=== PATIENT | male | born 1940 | race Caucasian/White ===

== ENCOUNTER 2019-05-20 12:25 | Inpatient (IN) | payer MEDICARE, MEDICAID ==
[2019-05-20] MEDS ORDERED: hydrALAZINE 20 MG/ML VIAL ONE (13:00)
[2019-05-20] MEDS ORDERED: Furosemide 40 MG/4 ML VIAL ONE (13:00)
[2019-05-20 13:13] LABS: #Basophils 0.1 thou/uL (0.0-0.2); #Eosinphils 0.3 thou/uL (0.0-0.7); #Lymphocytes 1.4 thou/uL (1.20-3.40); #Monocytes 0.6 thou/uL (0.11-0.59); #Neutrophils 3.3 thou/uL (1.40-6.50); %Basophils 1.2 % (0.0-1.0); %Eosinophils 5.8 % (0.0-10.0); %Lymphocytes 25.3 % (21.0-51.0); %Monocytes 10.2 % (0.0-10.0); %Neutrophils 57.5 % (42.0-75.0); Hemoglobin 14.2 g/dL (14.0-18.0); Mean Corpuscular HGB CONC 33.9 g/dL (32.0-36.0); Mean Corpuscular Hemoglobin 30.6 pg (27.0-31.0); Mean Corpuscular Volume 90.3 fL (78.0-98.0); Mean Platelet Volume 8.1 fL (7.4-10.4); Platelet Count 153 thou/uL (130-400); RBC Distribution Width 14.7 % (11.5-14.5); Red Blood Cell (RBC) Count 4.66 mill/uL (4.70-6.10); White Blood Cell (WBC) Count 5.7 thou/uL (4.8-10.8)
--- NOTE | 2019-05-20 13:18 | RAD ---
EXAM: Portable chest PROVIDED CLINICAL HISTORY: Chest pain COMPARISON: None FINDINGS: Cardiac and mediastinal silhouette is within normal limits. No focal consolidation, pleural fluid or pneumothorax evident. Median sternotomy changes, atherosclerosis and chronic obstructive changes are redemonstrated. IMPRESSION: No evidence for an acute cardiopulmonary process.
[2019-05-20] MEDS ORDERED: cefTRIAXone\\ROCEPHIN 2 GM VIAL ONE (13:33)
[2019-05-20] MEDS ORDERED: Magnesium 2 GM/50 ML BAG (IN WATER) ONE (13:33)
[2019-05-20] MEDS ORDERED: methylPREDNISolone Sod Succ/PF 125 MG/2 ML VIAL ONE (13:33)
[2019-05-20 13:35] LABS: ALT (SGPT) 22 U/L (8-55); AST (SGOT) 43 U/L (5-34); Albumin 4.4 g/dL (3.4-4.8); Alkaline Phosphatase 97 U/L (40-110); Anion Gap 17 mmol/L (10-20); BUN (Urea Nitrogen) 16 mg/dL (8.4-25.7); Bilirubin, Total 0.7 mg/dL (0.2-1.2); Calc. Creatinine Clearance 0 mL/min (70-130); Calcium 9.1 mg/dL (7.8-10.44); Carbon Dioxide 30 mmol/L (23-31); Chloride 84 mmol/L (98-107); Estimated GFR-MDRD 70; Globulin 3.5 g/dL (2.4-3.5); Glucose 113 mg/dL (83-110); Lipase 15 U/L (8-78); Potassium 4.5 mmol/L (3.5-5.1); Protein, Total 7.9 g/dL (5.8-8.1); Sodium 126 mmol/L (136-145)
[2019-05-20] MEDS ORDERED: Ondansetron PF 4 MG/2 ML Vial IVP PRN (15:45)
[2019-05-20] MEDS ORDERED: Morphine 2 MG/ML SYRINGE SLOW IVP PRN ×2 (15:45→17:55)
[2019-05-20] MEDS ORDERED: Bisacodyl 10 MG SUPP PR PRN (15:45)
--- NOTE | 2019-05-20 16:22 | HP ---
REASON FOR ADMISSION: CHF exacerbation, stasis dermatitis of lower extremity, hyponatremia secondary to SIADH, and COPD exacerbation. HISTORY OF PRESENTING ILLNESS: The patient gives history of progressive swelling of both lower extremities and shortness of breath. He has had off and on blistering of his lower extremities for almost a year now with worsening swelling and painful legs now. He developed severe shortness of breath and was not able to get up and even use the restroom this morning and called EMS. He has felt hot and cold at home. No complaints of any expectoration as such. Has no complaints of chest pain or palpitation. PAST MEDICAL AND SURGICAL HISTORY: History of CABG for four-vessel disease done in April [address] Kim. He had SAGASTUME to LAD, saphenous vein graft to diagonal, ramus and obtuse marginal. Hypertension, dyslipidemia, restless legs syndrome, hernia repair on both side, circumcision, and chronic back pain. CURRENT MEDICATIONS: The patient takes: 1. K-Dur 10 mEq p.o. daily. 2. Lasix 20 mg daily. 3. Aspirin 81 mg daily. 4. Coreg 3.125 mg twice daily. 5. Lisinopril 10 mg daily. 6. Pramipexole at bedtime. ALLERGIES: ALLERGIC TO ULTRAM. PERSONAL HISTORY: Does not abuse alcohol or drugs. Quit smoking more than 20 years ago, but has smoked half pack a day for 20 years. He lives alone. FAMILY HISTORY: Mother at the age of 88. She had hardening of arteries. Father at the age of 78, had history of esophageal cancer and prostate cancer. CODE STATUS: The patient is full code. Power of defense attorney is his sister. The patient is not and has no children. REVIEW OF SYSTEMS: CONSTITUTIONAL: Negative for weight loss or gain, ability to conduct usual activities. SKIN: Negative for rash, itching. EYES: Negative for double vision, pain. ENT/MOUTH: Negative for nose bleeding, neck stiffness, pain, tenderness. CARDIOVASCULAR: Negative for palpitations, dyspnea on exertion, orthopnea. RESPIRATORY: Negative for shortness of breath, wheezing, cough, hemoptysis, fever or night sweats. GASTROINTESTINAL: Negative for poor appetite, abdominal pain, heartburn, nausea , vomiting, constipation, or diarrhea. GENITOURINARY: Negative for urgency, frequency, dysuria, nocturia. MUSCULOSKELETAL: Negative for pain, swelling. NEUROLOGIC/PSYCHIATRIC: Negative for anxiety, depression. ALLERGY/IMMUNOLOGIC: Negative for skin rash, bleeding tendency. PHYSICAL EXAMINATION: GENERAL: The patient is a 78-year-old male, who is currently not in any acute distress. VITAL SIGNS: Blood pressure 196/100, pulse 78 per minute, respiratory rate 24 per minute, temperature 98.4 degrees Fahrenheit, and saturating 100% on 2 L nasal cannula. NECK: Supple. There is elevated JVD. HEENT: Eyes, extraocular muscles intact. Pupils reacting to light. Oral cavity, mucous membranes are dry. No exudates or congestion. CARDIOVASCULAR SYSTEM: S1 and S2 heard. Regular rhythm. RESPIRATORY SYSTEM: Air entry 1+ bilateral. There is rales plus in the infrascapular area. Rhonchi plus. ABDOMEN: Soft. Bowel sounds heard. Abdomen is slightly distended. No rigidity or guarding. EXTREMITIES: There is severe peripheral edema and acrocyanosis in the toes due to edema. He has scarring from old blistering on the legs due to extensive edema. No calf tenderness. VASCULAR SYSTEM: Peripheral pulses 1+ bilateral. No ischemic ulcers or gangrene. CENTRAL NERVOUS SYSTEM: No gross focal deficits noted. The patient is alert, awake, and oriented well. PSYCHIATRIC: The patient's mood is euthymic. No hallucinations or delusions. LABORATORY DATA: EKG done shows normal sinus rhythm at 87 beats per minute. There is nonspecific ST-T wave changes seen. White count of 5.7, H and H 14 and 42, platelet count 153, and MCV is 90 with 57% neutrophils. Sodium 126, serum chloride 84, BUN 16, creatinine 1.0, serum glucose 113, AST 43, ALT 22, and alkaline phosphatase 97. First set of troponin negative. BNP is 28. Albumin is 4.4 and lipase is 15. Chest x-ray done shows no acute cardiopulmonary process. CLINICAL IMPRESSION AND PLAN: The patient will be admitted to telemetry for acute congestive heart failure exacerbation likely diastolic dysfunction. His prior echo showed normal EF in 2014, but his cardiac catheterization showed low ejection fraction. The patient also has a prior history of smoking and it is unclear if the patient has underlying RV failure. We will obtain a repeat echo with 2D Doppler for LV function. We will consult Dr. Mcnamara of Cardiology. He will be gently diuresed with Lasix 40 mg IV at 6 a.m. and 2 p.m. His renal function is stable at present. The patient has massive edema and will likely require prolonged and sustained diuresis to get rid of the extra fluid he has. He will be wearing a SUSANA hose to help with diuresis. We will continue him on a small dose of Coreg, lisinopril, and aspirin. Morphine p.r.n. for pain and we will also consult Dr. Morales for Pulmonology. Job ID: [id number] [facility]
[2019-05-20 17:36] VITALS: BMI 30.7
[2019-05-20 19:31] LABS: Troponin I 0.027 ng/mL (< 0.028)
[2019-05-20] MEDS: Carvedilol 3.125 MG TAB PO SCH (21:16)
[2019-05-20] MEDS: Famotidine 20 MG TAB PO SCH (21:16)
[2019-05-20] MEDS: Acetaminophen/Codeine 30-300mg Tablet PO PRN (21:16)
[2019-05-20] MEDS: Doxycycline 100 MG CAP PO SCH (21:16)
[2019-05-20] MEDS: Guaifenesin DM 100-10/5 ML UDCUP PO PRN (21:28)
[2019-05-20] MEDS: methylPREDNISolone Sod Succ 40 MG VIAL IVP SCH (21:30)
[2019-05-21] MEDS: Acetaminophen/Codeine 30-300mg Tablet PO PRN (05:29)
[2019-05-21] MEDS: Furosemide 40 MG/4 ML VIAL SLOW IVP SCH ×3 (05:30→15:14)
[2019-05-21 06:31] LABS: #Lymphocytes 0.8 thou/uL (1.20-3.40); #Monocytes 0.2 thou/uL (0.11-0.59); #Neutrophils 3.7 thou/uL (1.40-6.50); %Basophils 0.2 % (0.0-1.0); %Eosinophils 0.4 % (0.0-10.0); %Lymphocytes 16.8 % (21.0-51.0); %Monocytes 4.1 % (0.0-10.0); %Neutrophils 78.6 % (42.0-75.0); Hemoglobin 13.3 g/dL (14.0-18.0); Mean Corpuscular HGB CONC 34.4 g/dL (32.0-36.0); Mean Corpuscular Hemoglobin 30.6 pg (27.0-31.0); Mean Platelet Volume 7.6 fL (7.4-10.4); Platelet Count 163 thou/uL (130-400); RBC Distribution Width 14.9 % (11.5-14.5); Red Blood Cell (RBC) Count 4.33 mill/uL (4.70-6.10); White Blood Cell (WBC) Count 4.7 thou/uL (4.8-10.8)
[2019-05-21] MEDS: methylPREDNISolone Sod Succ 40 MG VIAL IVP SCH ×3 (06:48→21:54)
[2019-05-21 06:52] LABS: Anion Gap 13 mmol/L (10-20); BUN (Urea Nitrogen) 15 mg/dL (8.4-25.7); Calc. Creatinine Clearance 95 mL/min (70-130); Carbon Dioxide 30 mmol/L (23-31); Chloride 84 mmol/L (98-107); Estimated GFR-MDRD 79; Glucose 139 mg/dL (83-110); Potassium 4.3 mmol/L (3.5-5.1); Sodium 123 mmol/L (136-145)
[2019-05-21] MEDS ORDERED: FLU VACC TS2019-20(65YR UP)/PF 180 MCG/0.5 ML SYRINGE IM ONE (09:00)
[2019-05-21] MEDS ORDERED: Lisinopril 2.5 MG TAB PO SCH (09:00)
[2019-05-21] MEDS: Famotidine 20 MG TAB PO SCH ×2 (09:39→20:30)
[2019-05-21] MEDS: Enoxaparin Sodium 40 MG/0.4 ML SYRINGE SC SCH (09:40)
[2019-05-21] MEDS: Carvedilol 3.125 MG TAB PO SCH ×2 (09:40→20:31)
[2019-05-21] MEDS: Aspirin Chewable 81 MG TAB PO SCH (09:40)
[2019-05-21] MEDS: Doxycycline 100 MG CAP PO SCH ×2 (09:40→20:31)
--- NOTE | 2019-05-21 11:28 | CON ---
DATE OF CONSULTATION: 05/21/2019 PRIMARY FIRST SAMPLER: Dee Dee Bran MD REASON FOR CONSULTATION: Lower extremity edema. HISTORY OF PRESENT ILLNESS: Mr. Palacios is a pleasant 78-year-old white gentleman, who comes to the hospital for lower extremity edema and erythema. He has noticed this lower extremity edema for a long time now. He states that for the past years, he has noticed some level of edema. Recently, they become more erythematous and painful to palpation, so he was advised to come in to the hospital for further evaluation. He was evaluated and thought to have a cellulitis and he has been started on antibiotics already. He has not noted much improvement. On my evaluation, he does seem to have what I would call cellulitis of the bilateral lower extremities with multiple scabs. He has a history of coronary artery disease with left main disease back in 2014, diagnosed by Dr. Bran, and underwent coronary artery bypass grafting x4 by Dr. Kim in May of 2014. He had a SAGASTUME to the LAD, a vein graft to a diagonal, vein graft to ramus, and a vein graft to an obtuse marginal. He followed up with Dr. Bran up until 2017. The last echocardiogram on file is from 2014 in June and he had an EF of 55% to 60% and [id number] MR. PAST MEDICAL HISTORY: 1. Coronary artery disease, status post CABG x4 as above. 2. Hypertension. 3. Hyperlipidemia. 4. Restless legs syndrome. 5. Hernia repair on both sides. 6. Circumcision. 7. Chronic back pain with upper thoracic back surgery. OUTPATIENT MEDICATIONS: 1. Potassium chloride. 2. Lasix 20 mg a day. 3. Aspirin 81 a day. 4. Coreg 3.125 b.i.d. 5. Lisinopril 10 mg a day. 6. Pramipexole. ALLERGIES: ULTRAM. SOCIAL HISTORY: No alcohol or drugs. Quit smoking 20 years ago. FAMILY HISTORY: No early coronary artery disease. REVIEW OF SYSTEMS: A 12-point review of systems was done and was all negative unless stated in the history of present illness. PHYSICAL EXAMINATION: VITAL SIGNS: Temperature 97.8, pulse 86, respiratory rate 18, sat 94% on room air, and blood pressure 152/72. GENERAL: Awake, alert, and oriented x3, in no distress. HEENT: Normocephalic and atraumatic. NECK: Supple. LUNGS: Reduced breath sounds. ABDOMEN: Positive bowel sounds. EXTREMITIES: 1+ very taut edema with erythema, warm to touch and painful to palpation suggestive of cellulitis. This is on both shins. LABORATORY DATA: Laboratory work was reviewed. White count of 5, hemoglobin of 14, hematocrit of 42, and platelet count of 153. Chemistries were reviewed. Sodium 123, potassium 4.3, normal BUN and creatinine, and GFR 79. Troponin is negative x3. BNP is 28. TSH is 1.9. ASSESSMENT: 1. Bilateral lower extremity edema and likely cellulitis. 2. Coronary artery disease, status post coronary artery bypass graft x4 five years ago. No symptoms to suggest an acute coronary syndrome and negative troponins. 3. Hypertension. PLAN: 1. Echocardiogram is pending. 2. Continue antibiotics per primary team. 3. There may be some level of venous insufficiency. 4. We will await for results of echo for further recommendations. 5. We would agree with increasing his Lasix to current dose for 1 or 2 days. 6. Add a statin to his regimen for his CAD. Thank you for letting us to participate in the care of your patient. Dr. Bran, his primary motor coach bus driver, will follow in the morning. Job ID: [id number]
--- NOTE | 2019-05-21 12:00 | PDOC.HOSPP ---
- Subjective Encounter Date: 05/21/19 Encounter Time: 10:00 Subjective: breathing better, no chest pain is sitting in chair - Objective Vital Signs & Weight: Vital Signs (12 hours) Temp Pulse Resp BP BP Pulse Ox 05/21/19 09:40 86 152/72 H 05/21/19 09:00 98.6 F 92 18 122/60 92 L 05/21/19 07:33 97.8 F 86 18 152/72 H 94 L 05/21/19 06:33 87 19 97 05/21/19 04:55 94 L 05/21/19 04:05 97.8 F 83 20 132/90 94 L 05/21/19 04:00 97.8 F 83 20 132/90 94 L 05/20/19 23:55 98 F 85 20 121/74 98 05/20/19 23:54 98 F 85 20 121/74 98 05/20/19 23:47 84 20 94 L Weight Weight 220 lb I&O: 05/20/19 05/21/19 05/22/19 05:59 06:59 06:59 Output Total Balance Result Diagrams: 05/21/19 06:19 05/21/19 06:18 Hospitalist ROS - Medication Medications: Active Medications Generic Name Dose Route Start Last Admin Trade Name Freq PRN Reason Stop Dose Admin Acetaminophen/Codeine Phosphate 2 tab 05/20/19 15:45 05/21/19 05:29 Tylenol #3 PO 2 tab Q6H PRN Administration Moderate Pain (4-6) Albuterol/Ipratropium 3 ml 05/20/19 19:00 05/21/19 06:33 Duoneb NEB 3 ml [id number] JAIME Administration Aspirin 81 mg 05/21/19 09:00 05/21/19 09:40 Aspirin Chewable PO 81 mg DAILY JAIME Administration Carvedilol 3.125 mg 05/20/19 21:00 05/21/19 09:40 Coreg PO 3.125 mg BID JAIME Administration Doxycycline Hyclate 100 mg 05/20/19 21:00 05/21/19 09:40 Vibramycin PO 100 mg BID JAIME Administration Enoxaparin Sodium 40 mg 05/21/19 09:00 05/21/19 09:40 Lovenox SC 40 mg 09 JAIME Administration Famotidine 20 mg 05/20/19 21:00 05/21/19 09:39 Pepcid PO 20 mg BID JAIME Administration Furosemide 40 mg 05/21/19 06:00 05/21/19 05:38 Lasix SLOW IVP Not Given 0600,1400 JAIME Guaifenesin/Dextromethorphan 15 ml 05/20/19 15:45 05/20/19 21:28 Robitussin Dm PO 15 ml Q4H PRN Administration Cough Lisinopril 2.5 mg 05/21/19 09:00 05/21/19 09:40 Zestril PO 2.5 mg DAILY JAIME Administration Methylprednisolone Sodium Succinate 20 mg 05/20/19 22:00 05/21/19 06:48 Solu-Medrol IVP 20 mg Q8HR JAIME Administration Ondansetron HCl 4 mg 05/20/19 15:45 05/21/19 09:42 Zofran IVP 4 mg Q6H PRN Administration Nausea/Vomiting - Exam General Appearance: awake alert Eye: PERRL, anicteric sclera ENT: no oropharyngeal lesions, moist mucosa Neck: supple, no JVD Heart: RRR, no murmur Respiratory: no wheezes, no rales Gastrointestinal: soft, non-tender, non-distended, normal bowel sounds Extremities: no cyanosis, 2+ LE edema Neurological: cranial nerve grossly intact, no focal deficits Psychiatric: normal affect, A&O x 3 Hosp A/P (1) Acute exacerbation of CHF (congestive heart failure) Code(s): I50.9 - HEART FAILURE, UNSPECIFIED Status: Acute Qualifiers: Heart failure type: unspecified Qualified Code(s): I50.9 - Heart failure, unspecified (2) COPD exacerbation Code(s): J44.1 - CHRONIC OBSTRUCTIVE PULMONARY DISEASE W (ACUTE) EXACERBATION Status: Acute (3) CAD (coronary artery disease) Code(s): I25.10 - ATHSCL HEART DISEASE OF [place] CORONARY ARTERY W/O ANG PCTRS Status: Chronic Qualifiers: Coronary Disease-Associated Artery/Lesion type: bypass graft [place] vs. transplanted heart: [place] heart Associated angina: without angina Qualified Code(s): I25.810 - Atherosclerosis of coronary artery bypass graft(s) without angina pectoris (4) HTN (hypertension) Code(s): I10 - ESSENTIAL (PRIMARY) HYPERTENSION Status: Chronic Qualifiers: Hypertension type: essential hypertension Qualified Code(s): I10 - Essential (primary) hypertension (5) Dyslipidemia Code(s): E78.5 - HYPERLIPIDEMIA, UNSPECIFIED Status: Chronic (6) Chronic back pain Code(s): M54.9 - DORSALGIA, UNSPECIFIED; G89.29 - OTHER CHRONIC PAIN Status: Chronic Qualifiers: Back pain location: low back pain (7) Obesity (BMI 30.0-34.9) Code(s): E66.9 - OBESITY, UNSPECIFIED Status: Chronic - Plan counselled to take lasix as prescibed echo pending is on small doses of coreg, lisinopril, asp, lipitor, steroids, empiric doxy for copd flare up, nebs. has massive edema built up in lower extremities over a long period of time (?1yr ) poor functional status due to back issues has caregiver who comes in daily for 6hrs, he does not want any placement or rehab. PT/OT jaleel garay hose to lower extremities
--- NOTE | 2019-05-21 13:24 | CON ---
DATE OF CONSULTATION: HISTORY OF PRESENT ILLNESS: Bora Palacios is a 78-year-old morbidly obese gentleman, who has been in the hospital for several days. He weighs 98 kg, presented with shortness of breath, abdominal pain, coughing, and wheezing. He says he can barely walk 20 feet without getting markedly short of breath. He had a face mask. His O2 was 100%, pulse 79, respirations 25, and blood pressure 197/102. Denies any coughing or wheezing. In regard to his abdominal discomfort, he said he is having some pain. He is distended. But, denies any nausea, vomiting, or diarrhea. PAST MEDICAL HISTORY: COPD, coronary artery disease status post [place], high cholesterol, hyperlipidemia, and chronic back pain. PAST SURGICAL HISTORY: Previous surgeries otherwise included previous bypass and hernia surgery. He is a . Previous lumbar steroid shot. SOCIAL HISTORY: Drinks alcohol daily. Former smoker, quit smoking 10 years ago. HOME MEDICINES: 1. Aspirin. 2. Claritin. 3. Lasix 20. 4. Pramipexole 0.25 daily. 5. Potassium. 6. Tylenol. 7. Naprosyn. 8. Lisinopril 10. 9. Ibuprofen. 10. Gabapentin. 11. Coreg 3.125. REVIEW OF SYSTEMS: Otherwise, negative. PHYSICAL EXAMINATION: GENERAL: He is awake, alert, and responsive, morbidly obese. VITAL SIGNS: Temperature 98, pulse 86, blood pressure 142/72, saturations are 90% on 2 L. Blood pressure as noted and respirations 18. CHEST: Decreased breath sounds. No wheezing. CARDIAC: Normal S1 and S2. No gallops. ABDOMEN: No masses. Massive and distended. EXTREMITIES: Trace edema. NEUROLOGIC: He is awake, alert, responsive, and normal. LABORATORY DATA: Sodium is 123, low. White count 4000, H and H 13 and 38, and platelet count is normal. X-ray is clear. ASSESSMENT: 1. Chronic obstructive pulmonary disease exacerbation bronchitis. 2. Hyponatremia, unclear whether this is from his drinking or the diuretics. PLAN: He needs baseline PFT at some stage. I agree with present treatment. He is probably going to need home medication including somewhat of nebulizer, rescue inhaler, and Dulera. I will switch him over to p.o. prednisone. Continue aggressive PT. We will follow. Consultation note, 70 minutes, 50% direct patient care. Job ID: [id number]
[2019-05-21] MEDS: Mometasone/Formoterol 120 PUFF INHALER INH SCH (18:56)
[2019-05-21] MEDS ORDERED: Methyl Salicylate/Menthol 85 GM TUBE TOP PRN (19:11)
[2019-05-21] MEDS: Atorvastatin Calcium 20 MG TAB PO SCH (20:30)
[2019-05-21] MEDS: Senokot S 8.6-50 MG TAB PO PRN (20:30)
[2019-05-21] MEDS: Pramipexole Di-HCl 0.25 MG TAB PO PRN (21:52)
[2019-05-21] MEDS: Gabapentin 300 MG CAP PO PRN (21:52)
[2019-05-21] MEDS: Acetaminophen 325 MG TAB PO PRN (22:29)
[2019-05-22] MEDS: Furosemide 40 MG/4 ML VIAL SLOW IVP SCH ×2 (06:12→15:45)
[2019-05-22] MEDS: methylPREDNISolone Sod Succ 40 MG VIAL IVP SCH (06:13)
[2019-05-22] MEDS: Mometasone/Formoterol 120 PUFF INHALER INH SCH ×2 (07:56→18:47)
[2019-05-22 08:40] LABS: Anion Gap 15 mmol/L (10-20); BUN (Urea Nitrogen) 24 mg/dL (8.4-25.7); Calc. Creatinine Clearance 78 mL/min (70-130); Calcium 9.6 mg/dL (7.8-10.44); Carbon Dioxide 33 mmol/L (23-31); Chloride 85 mmol/L (98-107); Estimated GFR-MDRD 63; Glucose 110 mg/dL (83-110); Potassium 4.6 mmol/L (3.5-5.1); Sodium 128 mmol/L (136-145)
[2019-05-22] MEDS: Aspirin Chewable 81 MG TAB PO SCH (09:12)
[2019-05-22] MEDS: Famotidine 20 MG TAB PO SCH ×2 (09:13→20:37)
[2019-05-22] MEDS: Carvedilol 3.125 MG TAB PO SCH ×2 (09:13→20:36)
[2019-05-22] MEDS: Amoxicillin/Potassium Clav 875 MG TAB PO SCH ×2 (09:13→20:36)
[2019-05-22] MEDS: Doxycycline 100 MG CAP PO SCH ×2 (09:13→20:38)
[2019-05-22] MEDS: Enoxaparin Sodium 40 MG/0.4 ML SYRINGE SC SCH (09:13)
[2019-05-22] MEDS: predniSONE 20 MG TAB PO SCH (09:14)
[2019-05-22] MEDS: Senokot S 8.6-50 MG TAB PO PRN (09:15)
--- NOTE | 2019-05-22 09:53 | PRG ---
DATE OF SERVICE: 05/22/2019 SUBJECTIVE: This morning, he is better. He is less short of breath. Sodium is improved to 128. OBJECTIVE: VITAL SIGNS: Temperature 97, pulse 79, respirations 18, saturations 95% on 2 L, blood pressure 134/69. CHEST: Decreased breath sounds without any wheezing. CARDIAC: Normal S1 and S2. No gallops. ABDOMEN: No masses. IMPRESSION: Chronic obstructive pulmonary disease exacerbation, bronchitis, congestive heart failure, hyponatremia. PLAN: Continue PT, supportive care. Disposition as per primary care physician. Job ID: [id number]
--- NOTE | 2019-05-22 12:06 | PDOC.CPN ---
- Subjective Date: 05/22/19 Time: 08:00 Interval history: The pt seen and examined. No overnight events. No cardiac complaints. - Objective Allergies/Adverse Reactions: Allergies Allergy/AdvReac Type Severity Reaction Status Date / Time tramadol Allergy Verified 05/20/19 17:37 Visit Medications: Current Medications Acetaminophen (Tylenol) 650 mg PO Q4H PRN PRN Reason: Headache/Fever/Mild Pain (1-3) Last Admin: 05/21/19 22:29 Dose: 650 mg Acetaminophen/Codeine Phosphate (Tylenol #3) 2 tab PO Q6H PRN PRN Reason: Moderate Pain (4-6) Last Admin: 05/21/19 05:29 Dose: 2 tab Albuterol/Ipratropium (Duoneb) 3 ml NEB [id number] [facility] Last Admin: 05/22/19 07:54 Dose: 3 ml Amoxicillin/Clavulanate Potassium (Augmentin) 875 mg PO Q12HR [facility] Last Admin: 05/22/19 09:13 Dose: 875 mg Aspirin (Aspirin Chewable) 81 mg PO DAILY [facility] Last Admin: 05/22/19 09:12 Dose: 81 mg Atorvastatin Calcium (Lipitor) 20 mg PO HS [facility] Last Admin: 05/21/19 20:30 Dose: 20 mg Bisacodyl (Dulcolax) 10 mg MN DAILYPRN PRN PRN Reason: Constipation Carvedilol (Coreg) 3.125 mg PO BID [facility] Last Admin: 05/22/19 09:13 Dose: 3.125 mg Doxycycline Hyclate (Vibramycin) 100 mg PO BID [facility] Last Admin: 05/22/19 09:13 Dose: 100 mg Enoxaparin Sodium (Lovenox) 40 mg SC 0900 [facility] Last Admin: 05/22/19 09:13 Dose: 40 mg Famotidine (Pepcid) 20 mg PO BID [facility] Last Admin: 05/22/19 09:13 Dose: 20 mg Furosemide (Lasix) 40 mg SLOW IVP 0600,1400 [facility] Last Admin: 05/22/19 06:12 Dose: 40 mg Gabapentin (Neurontin) 600 mg PO TIDPRN PRN PRN Reason: Pain Last Admin: 05/21/19 21:52 Dose: 600 mg Guaifenesin/Dextromethorphan (Robitussin Dm) 15 ml PO Q4H PRN PRN Reason: Cough Last Admin: 05/20/19 21:28 Dose: 15 ml Menthol/Methyl Salicylate (Muscle Rub Cream (Bengay)) 0 gm TOP TIDPRN PRN PRN Reason: JOINT/Muscle Pain Last Admin: 05/21/19 20:29 Dose: 1 gm Mometasone Furoate/Formoterol Fumar (Dulera 200 Mcg/5 Mcg Inhaler) 2 puff INH BID-RT JAIME Last Admin: 05/22/19 07:56 Dose: 2 puff Morphine Sulfate (Morphine) 2 mg SLOW IVP Q4H PRN PRN Reason: Severe Pain (7-10) Ondansetron HCl (Zofran) 4 mg IVP Q6H PRN PRN Reason: Nausea/Vomiting Last Admin: 05/21/19 09:42 Dose: 4 mg Pramipexole Dihydrochloride (Mirapex) 0.5 mg PO BID PRN PRN Reason: RLS Last Admin: 05/21/19 21:52 Dose: 0.5 mg Prednisone (Prednisone) 40 mg PO QAM-WM [facility] Last Admin: 05/22/19 09:14 Dose: 40 mg Senna/Docusate Sodium (Senokot S) 2 tab PO BID PRN PRN Reason: Constipation Last Admin: 05/22/19 09:15 Dose: 2 tab Sodium Chloride (Flush - Normal Saline) 10 ml IVF Q12HR JAIME Sodium Chloride (Flush - Normal Saline) 10 ml IVF PRN PRN PRN Reason: Saline Flush Vital Signs & Weight: Vital Signs Temp Pulse Resp BP Pulse Ox 05/22/19 11:42 98 F 86 16 101/66 96 05/22/19 07:54 92 16 94 L 05/22/19 07:00 98.3 F 78 16 134/69 95 05/22/19 03:55 97.3 F L 79 18 126/78 90 L 05/22/19 03:54 97.3 F L 79 18 126/78 90 L Weight 220 lb - Physical Exam General: alert & oriented x3 HEENT: mucus membranes moist Neck: supple neck Cardiac: regular rate and rhythm, S1/S2 Lungs: decreased breath sounds Neuro: cranial nerve 2-12 intact Extremities: other: (4+ pitting BLE edema) - Labs Result Diagrams: 05/21/19 06:19 03/09/20 08:08 Troponin/CKMB Troponin I 0.027 ng/mL (< 0.028) 05/20/19 19:01 - Telemetry Sinus rhythms and dysrhythmias: sinus rhythm - Assessment/Plan Assessment/Plan: 1. Acute on chronic Diastolic HF - his reps stable with Lasix; on Coreg and Lisinopril; will start Fluid restriction 1200ml/day for CHF and hyponatremia treatment; TEDs hose to lower extremities and strongly recommend to raise his BLE while resting 2. CAD with hx of CABG x 4 in 05/2014 - stable with BBlocker, KISHA, ASA, and Statin 3. HTN - stable 4. HLD - on Statin 5. COPD exacerbation with Bronchitis - on ABX 6. ETOH abuse - he drinks at least 1 glass of whisky at night; 7. Hyponatremia - will start Fluid restriction 1200ml/day for CHF and hyponatremia treatment MAR reviewed * Echo on 05/21/2019 with EF 60-65%, grade I dd, mild LVH, mild LAE, mild MR and TR Pt. seen and eval. by me. I agree with the A/P y the [employer] ATTEND[employer]. He will need significant diuresis. Chest : decreased BS throughout. RRR. + edema as noted.
[2019-05-22] MEDS: Guaifenesin DM 100-10/5 ML UDCUP PO PRN ×2 (12:23→20:36)
[2019-05-22] MEDS: Acetaminophen 325 MG TAB PO PRN (20:35)
[2019-05-22] MEDS: Atorvastatin Calcium 20 MG TAB PO SCH (20:36)
[2019-05-22] MEDS: Pramipexole Di-HCl 0.25 MG TAB PO PRN (20:37)
[2019-05-22] MEDS: Gabapentin 300 MG CAP PO PRN (20:38)
--- NOTE | 2019-05-22 21:08 | PDOC.HOSPP ---
- Subjective Encounter Date: 05/22/19 Subjective: The patient was seen and examined. He stated that his shortness of breath is improving. His lower extremity redness and swelling are better than yesterday according to the patient. - Objective Vital Signs & Weight: Vital Signs (12 hours) Temp Pulse Pulse Pulse Resp BP BP 05/22/19 20:00 97.7 F 88 22 H 05/22/19 18:47 90 16 05/22/19 16:00 97.6 F 84 18 05/22/19 15:10 90 88 141/64 H 126/66 05/22/19 15:00 98.0 F 86 16 05/22/19 14:12 87 20 05/22/19 11:42 98 F 86 16 05/22/19 11:00 98.0 F 86 16 BP Pulse Ox 05/22/19 20:00 131/67 92 L 05/22/19 18:47 95 05/22/19 16:00 148/71 H 92 L 05/22/19 15:10 05/22/19 15:00 101/66 96 05/22/19 14:12 94 L 05/22/19 11:42 101/66 96 05/22/19 11:00 101/66 96 Weight Admit Weight 220 lb Weight 220 lb I&O: 05/21/19 05/22/19 05/23/19 06:59 06:59 06:59 Intake Total 600 860 Output Total 2900 1200 Balance -2300 -340 Result Diagrams: 05/21/19 06:19 05/22/19 08:08 Hospitalist ROS - Medication Medications: Active Medications Generic Name Dose Route Start Last Admin Trade Name Charisma PRN Reason Stop Dose Admin Acetaminophen 650 mg 05/20/19 15:45 05/22/19 20:35 Tylenol PO 650 mg Q4H PRN Administration Headache/Fever/Mild Pain (1-3) Acetaminophen/Codeine Phosphate 2 tab 05/20/19 15:45 05/21/19 05:29 Tylenol #3 PO 2 tab Q6H PRN Administration Moderate Pain (4-6) Albuterol/Ipratropium 3 ml 05/20/19 19:00 05/22/19 18:47 Duoneb NEB 3 ml [id number] JAIME Administration Amoxicillin/Clavulanate Potassium 875 mg 05/22/19 09:00 05/22/19 20:36 Augmentin PO 875 mg Q12HR JAIME Administration Aspirin 81 mg 05/21/19 09:00 05/22/19 09:12 Aspirin Chewable PO 81 mg DAILY JAIME Administration Atorvastatin Calcium 20 mg 05/21/19 21:00 05/22/19 20:36 Lipitor PO 20 mg HS JAIME Administration Carvedilol 3.125 mg 05/20/19 21:00 05/22/19 20:36 Coreg PO 3.125 mg BID JAIME Administration Doxycycline Hyclate 100 mg 05/20/19 21:00 05/22/19 20:38 Vibramycin PO 100 mg BID JAIME Administration Enoxaparin Sodium 40 mg 05/21/19 09:00 05/22/19 09:13 Lovenox SC 40 mg 0900 JAIME Administration Famotidine 20 mg 05/20/19 21:00 05/22/19 20:37 Pepcid PO 20 mg BID JAIME Administration Furosemide 40 mg 05/21/19 06:00 05/22/19 15:45 Lasix SLOW IVP 40 mg 0600,1400 JAIME Administration Gabapentin 600 mg 05/21/19 19:11 05/22/19 20:38 Neurontin PO 600 mg TIDPRN PRN Administration Pain Guaifenesin/Dextromethorphan 15 ml 05/20/19 15:45 05/22/19 20:36 Robitussin Dm PO 15 ml Q4H PRN Administration Cough Menthol/Methyl Salicylate 0 gm 05/21/19 19:11 05/21/19 20:29 Muscle Rub Cream ([place]eng[place]) TOP 1 gm TIDPRN PRN Administration JOINT/Muscle Pain Mometasone Furoate/Formoterol Fumar 2 puff 05/21/19 18:30 05/22/19 18:47 Dulera 200 Mcg/5 Mcg Inhaler INH 2 puff BID-RT JAIME Administration Ondansetron HCl 4 mg 05/20/19 15:45 05/21/19 09:42 Zofran IVP 4 mg Q6H PRN Administration Nausea/Vomiting Pramipexole Dihydrochloride 0.5 mg 05/21/19 21:35 05/22/19 20:37 Mirapex PO 0.5 mg BID PRN Administration RLS Prednisone 40 mg 05/22/19 08:00 05/22/19 09:14 Prednisone PO 40 mg QAM-WM JAIME Administration Senna/Docusate Sodium 2 tab 05/20/19 15:45 05/22/19 09:15 Senokot S PO 2 tab BID PRN Administration Constipation Sodium Chloride 10 ml 05/22/19 09:00 05/22/19 20:38 Flush - Normal Saline IVF 10 ml Q12HR JAIME Administration - Exam General Appearance: NAD ENT: normocephalic atraumatic Neck: supple, symmetric, no JVD Heart: RRR Respiratory: normal chest expansion, normal percussion, rhonchi Gastrointestinal: soft, non-tender, non-distended, normal bowel sounds Neurological: cranial nerve grossly intact, no new deficit Hosp A/P (1) Cellulitis Code(s): L03.90 - CELLULITIS, UNSPECIFIED Status: Acute (2) Acute exacerbation of CHF (congestive heart failure) Code(s): I50.9 - HEART FAILURE, UNSPECIFIED Status: Acute Qualifiers: Heart failure type: unspecified Qualified Code(s): I50.9 - Heart failure, unspecified (3) CAD (coronary artery disease) Code(s): I25.10 - ATHSCL HEART DISEASE OF [place] CORONARY ARTERY W/O ANG PCTRS Status: Chronic Qualifiers: Coronary Disease-Associated Artery/Lesion type: bypass graft [place] vs. transplanted heart: [place] heart Associated angina: without angina Qualified Code(s): I25.810 - Atherosclerosis of coronary artery bypass graft(s) without angina pectoris (4) Dyslipidemia Code(s): E78.5 - HYPERLIPIDEMIA, UNSPECIFIED Status: Chronic (5) HTN (hypertension) Code(s): I10 - ESSENTIAL (PRIMARY) HYPERTENSION Status: Chronic Qualifiers: Hypertension type: essential hypertension Qualified Code(s): I10 - Essential (primary) hypertension - Plan CHF exacerbation with lower extremity edema and cellulitis likely precipitated by skin tear. The patient is receiving IV diuretics and IV antibiotics. Appreciate cardiology.
[2019-05-23] MEDS: Guaifenesin DM 100-10/5 ML UDCUP PO PRN ×3 (00:53→11:32)
[2019-05-23 05:10] LABS: Anion Gap 12 mmol/L (10-20); BUN (Urea Nitrogen) 29 mg/dL (8.4-25.7); Calc. Creatinine Clearance 87 mL/min (70-130); Calcium 9.2 mg/dL (7.8-10.44); Carbon Dioxide 29 mmol/L (23-31); Chloride 90 mmol/L (98-107); Estimated GFR-MDRD 71; Glucose 98 mg/dL (83-110); Potassium 4.4 mmol/L (3.5-5.1); Sodium 127 mmol/L (136-145)
[2019-05-23 05:30] LABS: Band 1 % (5-11); Hemoglobin 13.1 g/dL (14.0-18.0); Lymphocytes 12 % (21-51); MDiff Complete? YES; Mean Corpuscular HGB CONC 31.6 g/dL (32.0-36.0); Mean Corpuscular Hemoglobin 28.8 pg (27.0-31.0); Mean Corpuscular Volume 91.2 fL (78.0-98.0); Mean Platelet Volume 8.3 fL (7.4-10.4); Metamyelocyte 1 % (0-0); Monocytes 12 % (0-10); Neutrophil 74 % (42-75); Platelet Count 220 thou/uL (130-400); Platelet Morphology Comment Appears Adequate; RBC Distribution Width 15.2 % (11.5-14.5); Red Blood Cell (RBC) Count 4.54 mill/uL (4.70-6.10); White Blood Cell (WBC) Count 13.2 thou/uL (4.8-10.8)
[2019-05-23] MEDS: Furosemide 40 MG/4 ML VIAL SLOW IVP SCH (05:53)
[2019-05-23] MEDS: Mometasone/Formoterol 120 PUFF INHALER INH SCH (06:45)
[2019-05-23 07:52] VITALS: TEMP 97.4
[2019-05-23] MEDS: Amoxicillin/Potassium Clav 875 MG TAB PO SCH (08:54)
[2019-05-23] MEDS: predniSONE 20 MG TAB PO SCH (08:54)
[2019-05-23] MEDS: Enoxaparin Sodium 40 MG/0.4 ML SYRINGE SC SCH (08:55)
[2019-05-23] MEDS: Aspirin Chewable 81 MG TAB PO SCH (08:55)
[2019-05-23] MEDS: Doxycycline 100 MG CAP PO SCH (08:55)
[2019-05-23] MEDS: Carvedilol 3.125 MG TAB PO SCH (08:55)
[2019-05-23] MEDS: Famotidine 20 MG TAB PO SCH (08:55)
[2019-05-23] MEDS: Senokot S 8.6-50 MG TAB PO PRN (08:56)
--- NOTE | 2019-05-23 09:28 | PRG ---
DATE OF SERVICE: 05/23/2019 OBJECTIVE: VITAL SIGNS: Temperature 97, pulse 74, respirations 16, blood pressure 118/80, saturations 98% on room air. GENERAL: He is better, less short of breath. CHEST: No wheezing or crackles. CARDIAC: Normal S1 and S2. No gallops. ABDOMEN: No masses. ASSESSMENT AND PLAN: Hyponatremia, chronic obstructive pulmonary disease, bronchitis. Pulmonary ramirez, home any time. Disposition as per primary care physician. Job ID: [id number]
[2019-05-23] MEDS: Gabapentin 300 MG CAP PO PRN (11:32)
[2019-05-23] MEDS: Acetaminophen 325 MG TAB PO PRN (11:57)
[2019-05-23 12:00] VITALS: BP 110/68
--- NOTE | 2019-05-24 05:30 | DIS ---
DATE OF ADMISSION: 05/20/2019 DATE OF DISCHARGE: 05/23/2019 HISTORY OF PRESENT ILLNESS AND HOSPITAL COURSE: The patient is a pleasant 78-year-old male with past medical history of coronary artery disease, status post CABG in 2015, hypertension, hyperlipidemia, restless legs syndrome, COPD, and chronic back pain, who presented to the hospital with worsening shortness of breath and lower extremity swelling. He was noted to have left more than right lower extremity swelling with redness and tenderness suggesting both edema and possible cellulitis. The patient's imaging studies revealed some degree of pulmonary edema and examination was positive for wheezing suggestive of COPD exacerbation. The patient was managed with scheduled nebulizer treatments, corticosteroids, IV antibiotics, and diuresis leading to improvement in his respiratory status and decrease in the redness and swelling of his lower extremities. The patient was managed in the hospital for 3 days. At this time, he reached the maximum benefits from inpatient stay and the rest of his treatment will be continued on an outpatient basis. DISCHARGE DIAGNOSES: 1. Chronic obstructive pulmonary disease exacerbation. 2. Coronary artery disease. 3. Acute on chronic heart failure with preserved ejection fraction of 60% to 65%. 4. Cellulitis of the left lower extremity. DISCHARGE MEDICATIONS: 1. Augmentin 875/125 mg orally twice daily for 7 days. 2. Furosemide 40 mg orally daily. 3. DuoNeb nebulized q.6 hours as needed for shortness of breath or wheezing. 4. Doxycycline 100 mg orally twice daily for 10 days. 5. Prednisone 40 mg orally daily for 5 days. 6. Potassium chloride 10 mEq orally daily. 7. Lisinopril 10 mg orally daily. 8. Gabapentin 600 mg orally 3 times daily. 9. Carvedilol 3.125 mg orally twice daily. 10. Aspirin 81 mg orally daily. DISCHARGE INSTRUCTIONS: The patient was instructed to follow up with his PCP in 1 week and to elevate his leg at bedtime. Job ID: [id number]
== END 2019-05-23 15:20 | disposition home health service (06) | DRG 602 ==
LOC: ERS 12:25 → 2SE 14:21
PROVIDERS: ADMIT Family Medicine; ATTEND Family Medicine
DX: L03.116 Cellulitis of left lower limb (principal); I50.33 Acute on chronic diastolic (congestive) heart failure; J44.1 Chronic obstructive pulmonary disease with (acute) exacerbation; E22.2 Syndrome of inappropriate secretion of antidiuretic hormone; L03.115 Cellulitis of right lower limb; I25.10 Atherosclerotic heart disease of native coronary artery without angina pectoris; I11.0 Hypertensive heart disease with heart failure; Z95.1 Presence of aortocoronary bypass graft; E78.5 Hyperlipidemia, unspecified; G25.81 Restless legs syndrome; Z88.5 Allergy status to narcotic agent; Z98.890 Other specified postprocedural states; M54.9 Dorsalgia, unspecified; G89.29 Other chronic pain; E66.9 Obesity, unspecified; Z68.30 Body mass index [BMI] 30.0-30.9, adult; E66.01 Morbid (severe) obesity due to excess calories; I25.2 Old myocardial infarction; F10.10 Alcohol abuse, uncomplicated
CPT/HCPCS: 36415; 71045; 80048; 80053; 83690; 83880; 84443; 84484; 85007; 85025; 85027; 87040; 93005; 93306; 93798; 94010; 94640; 96365; 96367; 96374; 96375; J0360; J0696; J1650; J1940; J2405; J2920; J2930; J3370; J3475; J7050; J7512; J7620

== ENCOUNTER 2019-05-29 07:46 | Inpatient (IN) | payer MEDICARE, MEDICAID ==
--- NOTE | 2019-05-29 12:39 | PDOC.HHP ---
Hospitalist HPI - History of Present Illness shortness of breath, cough History of Present Illness: Mr. Palacios is a 78 year old male with a pertinent past medical history of COPD and a 15 pack-year history of smoking (quit 20 years ago) who presents to the ER today with severe SOB. The patient was discharged from the hospital on and he was being treated for cellulitis, COPD exacerbation and CHF exacerbation. He was discharged with augmentin and doxycycline, prednisone and lasix. He states that he had a cough during that hospitalization but when he went home it continued to get worst. He also had shortness of breath that became progressively worst at rest and on exertion and he couldn't take it anymore and came to the emergency room. He states he is not able to cough up that much phlegm. He fainted last night from the coughing, but did not hit his head. He denies chest pain except for when he coughs. He reports a persistent runny nose since his last hospitalization, chills, but no body aches. He denies sore throat. He went to [facility] last night and was diagnosed with the flu. There he was found to be febrile to 101, tachycardic with a WBC of 12. He was given IV vancomycin, cefepime, tamiflu and was transferred here for sepsis workup. The patient reports some PND. He denies SOB while laying down but did have some peripheral edema that has improved with the lasix over the past few days. He also complains of abdominal pain, worst with laying down but denies association with food intake. He describes it as feeling like a hunger pain. It does not radiate anywhere. He denies diarrhea or constipation . He denies blood in his stool. No dysuria. ED Course: The patient had a temp of 100.5, and oxygen saturation of 88% on 2L of oxygen. Chest X ray here shows no acute abnormality. He was given duoneb. Hospitalist ROS - Review of Systems Constitutional: reports: fever, chills. denies: sweats ENT: reports: nose discharge Respiratory: reports: cough (Cough has lasted for the past few months, and existed before hismost recent hospital visit.), shortness of breath (Started after he was released from the hospital, so severe that he called 911.), sputum Cardiovascular: reports: chest pain (Only reported a chest pain when he coughed. ), other (No chest tightness.). denies: light headedness Gastrointestinal: reports: abdominal pain (6/10 severity, fels like 'hunger pain ', wakes him at night, slightly improved with eating), constipation. denies: hematochezia Genitourinary: denies: dysuria Musculoskeletal: reports: back pain (Started immediately after a steroid injection to his back 5 years ago.), leg pain (Claims legs always hurt, but nothing new has changd regarding this pain.) Skin: reports: rash (Has dry flaky skin on both tibias, likely due to weeping edema.), lesions (Has a purple tee on his left mid abdomen about 4 inches in size.) Neurological: denies: weakness, numbness Hospitalist History - Past Medical History Source: patient Cardiac: reports: CHF, NM (6 years ago, for which he required surgery), Syncope (Occurred last night (05/28/2019) while sitting in a chair without exertion, during a severe episode of SOB) Pulmonary: reports: angina (Only when he intensely coughs.), COPD (Diagnosed 2019), hypertension (Diagnosed 7 years ago.). 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.) Musculoskeletal: reports: Chronic low back pain Renal/: denies: no pertinent history Endocrine: denies: Diabetes Other Medical History: COPD recently diagnosed Restless Leg Syndrome NM 6 years ago CHF Hypertension - Past Surgical History Past Surgical History: reports: CABG (6 years ago), Hernia Repair Other Surgical History: Back surgery 5 years ago - Family History Family History: reports: cancer (Father had esophageal cancer, brother had leukemia.) - Social History Smoking Status: Former smoker (Smoked 1 pack a day for 15 years, quit 20 years ago.) Alcohol: reports: None (Former heavy drinker, quit 30 years ago.) Drugs: reports: none Living Situation: Alone - Exam General Appearance: NAD, awake alert Eye: anicteric sclera ENT: normocephalic atraumatic Neck: no JVD Heart: RRR, no murmur, no gallops, no rubs, diminshed peripheral pulses. negative: normal peripheral pulses (Weak dorsalis pedis pulse bilaterally.) Respiratory: no rales Respiratory - other findings: wheezing. Diminished breath sounds bilaterally Gastrointestinal: soft, normal bowel sounds, no guarding, tender to palpation ( Tenderness with palpation of the left middle quadrant.). negative: voluntary guarding Gastrointestinal - other findings: epigastric and LUQ tenderness Extremities: 1+ LE edema Extremities - other findings: Both limbs cold to touch, purple color, skin flaking off. Poor pulses Neurological: negative: facial droop, speech deficit Psychiatric: normal affect, normal behavior, A&O x 3, oriented to person, oriented to place, oriented to time Hospitalist H&P A/P - Plan Plan: This is a 78 year old male with past medical history of COPD, restless leg, CAD s/p CABG, recnetly discharged for heart failure flare up who presented with persistent cough and shortness of breath, admitted for sepsis workup #Sepsis secondary to possible pneumonia #Influenza A - fever, tachycdardic, WBC 11, send blood culture, sputum culture, lactic acid - will continue with IV vancomycin and cefepime - continue tamiflu - gentle hydration with IV fluids #Cold extremities - will check arterial dopplers and venous dopplers #CHF - hold lasix for now #Hypertension - hold home meds for now #CAD s/p CABG - continue aspirin and statin DVT prophylaxis: lovenox Code status: full code
[2019-05-29] MEDS ORDERED: Ondansetron PF 4 MG/2 ML Vial IVP PRN (13:03)
[2019-05-29] MEDS: Morphine 2 MG/ML SYRINGE SLOW IVP PRN ×2 (15:29→20:19)
[2019-05-29 15:51] VITALS: BMI 29.5
[2019-05-29] MEDS ORDERED: Albuterol Sulfate 2.5 mg/3 ml Neb EZPAP PRN (20:44)
[2019-05-29] MEDS ORDERED: Sodium Chloride 0.9% 1,000 ML IV SCH (21:00)
[2019-05-29 21:36] LABS: Lactic Acid 0.8 mmol/L (0.5-2.2)
[2019-05-29 22:01] LABS: CKMB 2.8 ng/mL (0-6.6)
[2019-05-29] MEDS: Acetaminophen 325 MG TAB PO PRN (23:17)
[2019-05-29] MEDS: Pramipexole Di-HCl 1 MG TAB PO SCH (23:17)
[2019-05-29] MEDS: Oseltamivir 75 MG CAP PO SCH (23:18)
[2019-05-29] MEDS: Gabapentin 300 MG CAP PO PRN (23:19)
[2019-05-29] MEDS: guaiFENesin ER 600 MG TAB PO SCH (23:21)
[2019-05-29] MEDS: Cefepime 2 GM in Sodium Chloride 0.9% 100 ML IVPB SCH (23:27)
[2019-05-29] MEDS: Vancomycin 1 GM in Premix Bag 1 BAG IVPB SCH (23:45)
[2019-05-30] MEDS: guaiFENesin ER 600 MG TAB PO SCH ×3 (00:12→21:35)
[2019-05-30] MEDS: Vancomycin 1.5 GRAM/300 ML BAG 1.5 GM in Premix Bag 1 BAG IVPB SCH ×3 (01:19→22:28)
[2019-05-30 01:36] LABS: Bacteria/HPF None Seen HPF (None Seen); Bilirubin Negative (Negative); Blood, Urine Negative (Negative); Clarity Clear (Clear); Glucose, Urine (Dipstick) Normal (Negative); Leukocyte Negative Leu/uL (Negative); Nitrite Negative (Negative); Protein, Urine (Dipstick) 10 mg/dL (Neg-Trace); RBC/HPF 0-3 HPF (0-3); Squamous Epithelial None Seen HPF (0-3); Urobilinogen Normal mg/dL (Less than 2); WBC/HPF 0-3 HPF (0-3)
[2019-05-30 01:46] LABS: Urine Culture Reflex No No
[2019-05-30 04:41] LABS: Anion Gap 14 mmol/L (10-20); BUN (Urea Nitrogen) 21 mg/dL (8.4-25.7); Calc. Creatinine Clearance 93 mL/min (70-130); Calcium 8.3 mg/dL (7.8-10.44); Carbon Dioxide 19 mmol/L (23-31); Chloride 102 mmol/L (98-107); Estimated GFR-MDRD 80; Glucose 71 mg/dL (83-110); Sodium 130 mmol/L (136-145)
[2019-05-30 05:50] LABS: Band 11 % (5-11); Eosinophils 2 % (0-10); Lymphocytes 20 % (21-51); MDiff Complete? YES; Mean Corpuscular HGB CONC 31.8 g/dL (32.0-36.0); Mean Corpuscular Hemoglobin 29.9 pg (27.0-31.0); Mean Corpuscular Volume 94.3 fL (78.0-98.0); Mean Platelet Volume 7.4 fL (7.4-10.4); Monocytes 15 % (0-10); Neutrophil 52 % (42-75); Platelet Count 220 thou/uL (130-400); Red Blood Cell (RBC) Count 4.02 mill/uL (4.70-6.10); White Blood Cell (WBC) Count 11.2 thou/uL (4.8-10.8)
[2019-05-30] MEDS: Gabapentin 300 MG CAP PO PRN (08:24)
[2019-05-30] MEDS: Pramipexole Di-HCl 1 MG TAB PO SCH ×2 (08:24→21:35)
[2019-05-30] MEDS: Aspirin 81 mg Enteric Coated Tablet PO SCH (08:25)
[2019-05-30] MEDS: Cefepime 2 GM in Sodium Chloride 0.9% 100 ML IVPB SCH ×2 (08:25→21:35)
[2019-05-30] MEDS: Oseltamivir 75 MG CAP PO SCH ×2 (08:25→21:36)
[2019-05-30] MEDS: Enoxaparin Sodium 40 MG/0.4 ML SYRINGE SC SCH (08:25)
[2019-05-30] MEDS: Morphine 2 MG/ML SYRINGE SLOW IVP PRN (08:26)
--- NOTE | 2019-05-30 08:29 | ULT ---
EXAM: Bilateral lower extremity venous Doppler US HISTORY: bilateral lower extremity edema, erythema and pain FINDINGS: Grayscale, color-flow, Doppler evaluation, spectral analysis of the bilateral lower extremities venou s structures is performed with 2-D imaging. The bilateral common femoral, superficial femoral, popliteal, posterior tibial, proximal greater saphenous and profunda femoral veins are imaged. There is normal luminal compressibility, flow, and augmentation in the visualized deep venous structu res of the bilateral lower extremities. IMPRESSION: No evidence of a deep vein thrombosis in either lower extremity.
[2019-05-30] MEDS ORDERED: Furosemide 40 MG TAB PO SCH (10:00)
--- NOTE | 2019-05-30 10:33 | RAD ---
PORTABLE CHEST: HISTORY: Cough. COMPARISON: 05/29/2019 study. FINDINGS: Heart size within normal limits. There are postop sternotomy changes. Some chronic-appearing inters titial change is noted within both lung bases. No definite focal infiltrative process. IMPRESSION: Chronic-appearing lung change. No definite acute findings. POS: TPC
--- NOTE | 2019-05-30 11:35 | ULT ---
EXAM: US Arterial Doppler Lower Ext DATE: 05/30/2019 8:45 PM INDICATION: Redness and weak pulses within both lower extremities COMPARISON: None. FINDING: No hemodynamically significant stenosis is identified based on velocity measurements. Triphasic waveforms are seen within the common femoral arteries bilaterally. More biphasic appearing waveforms are seen within the remaining visualized arterial segments. IMPRESSION:Mild diffuse atherosclerotic disease of the arterial structures of both lower extremities. No hemodynamically significant stenosis is seen based on the velocity measurements.
[2019-05-30] MEDS ORDERED: methylPREDNISolone Sod Succ/PF 125 MG/2 ML VIAL IVP SCH (13:30)
--- NOTE | 2019-05-30 18:25 | PDOC.HOSPP ---
- Subjective Encounter Date: 05/30/19 Encounter Time: 13:00 Subjective: CC: shortness of breath/cough The patient states he feels his cough has improved some and denies significant shortness of breath, however appears to be wheezing significantly. He complains that his left leg is weak and has been that way since they injected steroid in his spine a few years ago. He is wondering whether this can be fixed, explained that he may have nerve damage and would likely need to be worked up as an outpatient with nerve conduction studies. - Objective Vital Signs & Weight: Vital Signs (12 hours) Temp Pulse Resp BP Pulse Ox 05/30/19 16:00 98.7 F 88 24 H 165/72 H 95 05/30/19 14:31 90 20 05/30/19 12:28 98.7 F 87 20 93/54 L 92 L 05/30/19 10:34 90 05/30/19 08:52 98.9 F 106 H 32 H 132/55 L 96 05/30/19 08:05 115 H 30 H 96 05/30/19 08:00 96 Weight Admit Weight 212 lb Weight 212 lb I&O: 05/29/19 05/30/19 05/31/19 06:59 06:59 06:59 Intake Total 500 Output Total 625 Balance -125 Result Diagrams: 05/30/19 04:01 05/30/19 04:01 Hospitalist ROS - Review of Systems Respiratory: reports: cough. denies: shortness of breath Cardiovascular: denies: chest pain, palpitations - Medication Medications: Active Medications Generic Name Dose Route Start Last Admin Trade Name Freq PRN Reason Stop Dose Admin Acetaminophen 650 mg 05/29/19 20:36 05/29/19 23:17 Tylenol PO 650 mg Q4H PRN Administration Headache/Fever/Mild Pain (1-3) Albuterol/Ipratropium 3 ml 05/29/19 22:30 05/30/19 14:31 Duoneb NEB 3 ml [id number] JAIME Administration Aspirin 81 mg 05/30/19 09:00 05/30/19 08:25 Ecotrin PO 81 mg DAILY JAIME Administration Enoxaparin Sodium 40 mg 05/30/19 09:00 05/30/19 08:25 Lovenox SC 40 mg 0900 JAIME Administration Gabapentin 600 mg 05/29/19 20:45 05/30/19 08:24 Neurontin PO 600 mg TID PRN Administration NERVE PAIN Guaifenesin 600 mg 05/29/19 21:00 05/30/19 08:25 Mucinex PO 600 mg Q12HR JAIME Administration Cefepime HCl 2 gm/ Sodium 100 mls @ 200 mls/hr 05/29/19 22:00 05/30/19 08:25 Chloride IVPB 100 mls 1000,2200 JAIME Administration Vancomycin HCl 1.5 gm/ Device 300 mls @ 200 mls/hr 05/29/19 23:00 05/30/19 11 :33 IVPB 300 mls 1100,2300 JAIME Administration Morphine Sulfate 2 mg 05/29/19 13:04 05/30/19 08:26 Morphine SLOW IVP 2 mg Q4H PRN Administration Moderate Pain (4-6) Oseltamivir Phosphate 75 mg 05/29/19 21:00 05/30/19 08:25 Tamiflu PO 06/03/19 09:01 75 mg BID JAIME Administration Pramipexole Dihydrochloride 0.5 mg 05/29/19 21:00 05/30/19 08:24 Mirapex PO 0.5 mg BID JAIME Administration - Exam General Appearance: NAD, awake alert General - other findings: 3L nasal cannula Eye: PERRL, anicteric sclera ENT: normocephalic atraumatic, no oropharyngeal lesions Neck: supple, no JVD Heart: RRR, no murmur, no gallops, no rubs Respiratory - other findings: bilateral wheezing noted expiratory. Tight breath sounds Gastrointestinal: soft, non-tender, non-distended, normal bowel sounds Extremities: no cyanosis, no clubbing, 1+ LE edema Extremities - other findings: cool lower extremities, slightly purple Skin: normal turgor, no lesions, no rashes Neurological: cranial nerve grossly intact, normal sensation to touch, no focal deficits, no new deficit Hosp A/P - Plan Chest X ray: chronic appearing lung change, no acute finding Doppler US: no DVT Arterial US: diffuse atherosclerotic disease, no significant stenosis This is a 78 year old male with past medical history of COPD, restless leg, CAD s/p CABG, recnetly discharged for heart failure flare up who presented with persistent cough and shortness of breath, admitted for sepsis workup #Acute hypoxic respiratory failure likely from pneumonia vs COPD exacerbation vs mild CHF #Sepsis secondary to possible pneumonia #Influenza A - was febrile and tachycardic on admission. Chest X ray shows chronic lung appearing change. Patient is influenza +, started on tamiflu - blood cultures negative, sputum culture pending - IV fluids discontinued - due to wheezing will start IV steroids, standing duonebs and prn albuterol Peripheral arterial disease - continue aspirin - no stenosis noted on ultrasound Lower extremity swelling - likely venous insufficiency vs CHF - venous dopplers shows no DVT #CHF -resume lasix 40 mg #Hypertension - resume coreg and lasix #CAD s/p CABG - continue aspirin and statin DVT prophylaxis: lovenox Code status: full code
[2019-05-30] MEDS ORDERED: Carvedilol 3.125 MG TAB PO SCH (21:00)
[2019-05-31] MEDS: Diabetic Tussin DM 5 ML UDCUP PO PRN ×3 (02:02→16:14)
[2019-05-31] MEDS: Gabapentin 300 MG CAP PO PRN (05:16)
[2019-05-31 06:26] LABS: Troponin I Less than 0.010 ng/mL (< 0.028)
[2019-05-31] MEDS: Pramipexole Di-HCl 1 MG TAB PO SCH ×2 (08:29→20:52)
[2019-05-31] MEDS: guaiFENesin ER 600 MG TAB PO SCH ×2 (08:32→20:51)
[2019-05-31] MEDS: Oseltamivir 75 MG CAP PO SCH ×2 (08:32→20:51)
[2019-05-31] MEDS: Aspirin 81 mg Enteric Coated Tablet PO SCH (08:33)
[2019-05-31] MEDS: Carvedilol 3.125 MG TAB PO SCH ×2 (08:33→16:15)
[2019-05-31] MEDS: Furosemide 40 MG TAB PO SCH (08:33)
[2019-05-31] MEDS: methylPREDNISolone Sod Succ/PF 125 MG/2 ML VIAL IVP SCH (08:33)
[2019-05-31] MEDS: Enoxaparin Sodium 40 MG/0.4 ML SYRINGE SC SCH (08:42)
[2019-05-31 10:11] LABS: Vancomycin, Trough 26.1 ug/mL
[2019-05-31 11:34] LABS: #Lymphocytes 0.9 thou/uL (1.20-3.40); #Monocytes 0.6 thou/uL (0.11-0.59); #Neutrophils 6.1 thou/uL (1.40-6.50); %Basophils 0.1 % (0.0-1.0); %Eosinophils 0.1 % (0.0-10.0); %Lymphocytes 11.6 % (21.0-51.0); %Monocytes 7.3 % (0.0-10.0); %Neutrophils 80.8 % (42.0-75.0); Hemoglobin 11.1 g/dL (14.0-18.0); Mean Corpuscular HGB CONC 32.9 g/dL (32.0-36.0); Mean Corpuscular Hemoglobin 30.2 pg (27.0-31.0); Mean Platelet Volume 7.1 fL (7.4-10.4); Platelet Count 225 thou/uL (130-400); RBC Distribution Width 14.6 % (11.5-14.5); Red Blood Cell (RBC) Count 3.68 mill/uL (4.70-6.10); White Blood Cell (WBC) Count 7.5 thou/uL (4.8-10.8)
[2019-05-31] MEDS: Cefepime 2 GM in Sodium Chloride 0.9% 100 ML IVPB SCH ×3 (11:36→20:52)
[2019-05-31 11:54] LABS: Anion Gap 10 mmol/L (10-20); BUN (Urea Nitrogen) 26 mg/dL (8.4-25.7); Calc. Creatinine Clearance 96 mL/min (70-130); Calcium 8.6 mg/dL (7.8-10.44); Carbon Dioxide 27 mmol/L (23-31); Chloride 100 mmol/L (98-107); Estimated GFR-MDRD 83; Glucose 119 mg/dL (83-110); Potassium 4.4 mmol/L (3.5-5.1); Sodium 133 mmol/L (136-145)
--- NOTE | 2019-05-31 16:05 | CT ---
EXAM: CT of the chest without contrast HISTORY: Cough and shortness of breath COMPARISON: None TECHNIQUE: Multiple contiguous axial images were obtained in a CT the chest without contrast. Coronal and sagittal reformats were performed. FINDINGS: HEART: Normal in size without focal cardiac abnormality. Atherosclerotic calcifications in the [place] arteries and aorta. MEDIASTINUM: No hilar or mediastinal lymphadenopathy. Evaluation of the mediastinum is limited withou t IV contrast. LUNGS: No focal infiltrates, nodules, or masses. Emphysematous changes. PLEURAL SPACE: No pneumothorax or pleural effusion. Small bilateral calcified pleural plaques. CHEST WALL SOFT TISSUES: Unremarkable OSSEOUS STRUCTURES: Degenerative changes in the spine and shoulders. The patient is status post garcia otomy. VISUALIZED SUBDIAPHRAGMATIC STRUCTURES: 3.7 cm left renal cyst. IMPRESSION: 1. No evidence of acute intrathoracic abnormality. 2. 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
[2019-05-31 22:31] LABS: Vancomycin, Random 16.6 ug/mL (See Comment)
[2019-05-31] MEDS: Vancomycin 1 GM in Premix Bag 1 BAG IVPB SCH (23:03)
[2019-06-01] MEDS: Diabetic Tussin DM 5 ML UDCUP PO PRN (08:22)
[2019-06-01] MEDS: Oseltamivir 75 MG CAP PO SCH ×2 (08:22→20:43)
[2019-06-01] MEDS: Aspirin 81 mg Enteric Coated Tablet PO SCH (08:22)
[2019-06-01] MEDS: Carvedilol 3.125 MG TAB PO SCH ×2 (08:22→16:46)
[2019-06-01] MEDS: guaiFENesin ER 600 MG TAB PO SCH ×2 (08:22→20:43)
[2019-06-01] MEDS: Furosemide 40 MG TAB PO SCH (08:22)
[2019-06-01] MEDS: Pramipexole Di-HCl 1 MG TAB PO SCH ×2 (08:23→20:42)
[2019-06-01] MEDS: methylPREDNISolone Sod Succ/PF 125 MG/2 ML VIAL IVP SCH (08:24)
[2019-06-01] MEDS: Enoxaparin Sodium 40 MG/0.4 ML SYRINGE SC SCH (08:25)
[2019-06-01] MEDS: Cefepime 2 GM in Sodium Chloride 0.9% 100 ML IVPB SCH ×2 (11:08→21:02)
[2019-06-01] MEDS: Vancomycin 1 GM in Premix Bag 1 BAG IVPB SCH ×2 (12:09→23:30)
[2019-06-01 12:56] LABS: Anion Gap 16 mmol/L (10-20); BUN (Urea Nitrogen) 29 mg/dL (8.4-25.7); Calc. Creatinine Clearance 95 mL/min (70-130); Calcium 9.1 mg/dL (7.8-10.44); Carbon Dioxide 23 mmol/L (23-31); Chloride 99 mmol/L (98-107); Estimated GFR-MDRD 82; Glucose 144 mg/dL (83-110); Potassium 4.8 mmol/L (3.5-5.1); Sodium 133 mmol/L (136-145)
--- NOTE | 2019-06-01 15:23 | PQF ---
DATE: 06-01-19 ATTN: DR. JOSE LUIS GILBERT Please exercise your independent, professional judgment in responding to the clarification form. Clinical indicators are provided on the bottom of this form for your review Please check appropriate box(s): [X ] Hyponatremia [ ] Insignificant Lab Values [ ] Other diagnosis [ ] Unable to determine In addition, please specify: Present on Admission (POA): [ X ] Yes [ ] No [ ] Unable to determine For continuity of documentation, please document condition throughout progress notes and discharge summary. Thank You. CLINICAL INDICATORS - SIGNS / SYMPTOMS/ LABS are present in the medical record: SODIUM: 05-30-19: 130 05-31-19: 133 06-01-19: 133 RISK FACTORS: H&P 05-29-19: PERIPHERAL EDEMA THAT HAS IMPROVED WITH THE LASIX OVER THE PAST FEW DAYS. H&P 05-29-19: SEPSIS 2/2 TO POSSIBLE PNEUMONIA, INFLUENZA A, CHF, HTN, CAD WITH CABG TREATMENT: SERIES OF LABS FROM 05-30-19 TO 06-01-19 (This form is maintained as a part of the permanent medical record) 2014 [employer] All Rights Reserved [email or web address] Office: [phone] [facility]
--- NOTE | 2019-06-01 17:02 | PDOC.HOSPP ---
- Subjective Encounter Date: 06/01/19 Encounter Time: 15:00 Subjective: The patient states he still has some fatigue and shortness of breath on exertion. He feel winded walking to the bathroom. Cough has decreased. On room air, patient was noted to have oxygen saturation 87 to 88%. - Objective Vital Signs & Weight: Vital Signs (12 hours) Temp Pulse Resp BP Pulse Ox 06/01/19 16:00 97.4 F L 66 20 142/68 H 93 L 06/01/19 14:48 60 14 06/01/19 08:19 93 L 06/01/19 08:00 97.8 F 73 20 137/71 93 L Weight Admit Weight 212 lb Weight 212 lb I&O: 05/31/19 06/01/19 06/02/19 06:59 06:59 06:59 Intake Total 830 1520 Output Total 1300 Balance 830 220 Result Diagrams: 05/31/19 11:16 06/01/19 12:26 Hospitalist ROS - Review of Systems Constitutional: denies: fever, chills Eyes: denies: vision change - Medication Medications: Active Medications Generic Name Dose Route Start Last Admin Trade Name Freq PRN Reason Stop Dose Admin Acetaminophen 650 mg 05/29/19 20:36 05/29/19 23:17 Tylenol PO 650 mg Q4H PRN Administration Headache/Fever/Mild Pain (1-3) Albuterol/Ipratropium 3 ml 05/29/19 22:30 06/01/19 14:48 Duoneb NEB 3 ml [id number] JAIME Administration Aspirin 81 mg 05/30/19 09:00 06/01/19 08:22 Ecotrin PO 81 mg DAILY JAIME Administration Carvedilol 3.125 mg 05/31/19 08:00 06/01/19 16:46 Coreg PO 3.125 mg BID-WM JAIME Administration Enoxaparin Sodium 40 mg 05/30/19 09:00 06/01/19 08:25 Lovenox SC 40 mg 0900 JAIME Administration Furosemide 40 mg 05/31/19 07:30 06/01/19 08:22 Lasix PO 40 mg DAILY-AC JAIME Administration Gabapentin 600 mg 05/29/19 20:45 05/31/19 05:16 Neurontin PO 600 mg TID PRN Administration NERVE PAIN Guaifenesin 600 mg 05/29/19 21:00 06/01/19 08:22 Mucinex PO 600 mg Q12HR JAIME Administration Guaifenesin/Dextromethorphan 10 ml 05/31/19 01:23 06/01/19 08:22 Diabetic Tussin Dm PO 10 ml Q4H PRN Administration Cough Cefepime HCl 2 gm/ Sodium 100 mls @ 200 mls/hr 05/29/19 22:00 06/01/19 11:08 Chloride IVPB 100 mls 1000,2200 JAIME Administration Vancomycin HCl 1 gm/ Device 200 mls @ 200 mls/hr 05/31/19 23:00 06/01/19 12: 09 IVPB 200 mls 1100,2300 JAIME Administration Methylprednisolone Sodium Succinate 60 mg 05/31/19 09:00 06/01/19 08:24 Solu-Medrol IVP 60 mg DAILY JAIME Administration Morphine Sulfate 2 mg 05/29/19 13:04 05/30/19 08:26 Morphine SLOW IVP 2 mg Q4H PRN Administration Moderate Pain (4-6) Ondansetron HCl 4 mg 05/29/19 13:03 05/31/19 20:51 Zofran IVP 4 mg Q6H PRN Administration Nausea/Vomiting Oseltamivir Phosphate 75 mg 05/29/19 21:00 06/01/19 08:22 Tamiflu PO 06/03/19 09:01 75 mg BID JAIME Administration Pramipexole Dihydrochloride 0.5 mg 05/29/19 21:00 06/01/19 08:23 Mirapex PO 0.5 mg BID JAIME Administration - Exam General Appearance: NAD, awake alert Eye: PERRL, anicteric sclera ENT: normocephalic atraumatic, no oropharyngeal lesions Neck: supple, no JVD Heart: RRR, no murmur, no gallops, no rubs Respiratory: CTAB, no wheezes, no rales, no ronchi Gastrointestinal: soft, normal bowel sounds Gastrointestinal - other findings: RUQ and RLQ tenderness Extremities: no cyanosis, no clubbing, no edema Skin: normal turgor, no lesions, no rashes Neurological: cranial nerve grossly intact, normal sensation to touch Hosp A/P - Plan Chest X ray: chronic appearing lung change, no acute finding Doppler US: no DVT Arterial US: diffuse atherosclerotic disease, no significant stenosis This is a 78 year old male with past medical history of COPD, restless leg, CAD s/p CABG, recnetly discharged for heart failure flare up who presented with persistent cough and shortness of breath, admitted for sepsis workup #Acute hypoxic respiratory failure likely from pneumonia vs COPD exacerbation vs mild CHF #Sepsis secondary to possible pneumonia #Influenza A - was febrile and tachycardic on admission. Chest X ray shows chronic lung appearing change. Patient is influenza +, started on tamiflu - blood cultures negative - will switch to oral prednisone 60 mg tomorrow Peripheral arterial disease - continue aspirin - no stenosis noted on ultrasound Lower extremity swelling - likely venous insufficiency vs CHF - venous dopplers shows no DVT #CHF -continue lasix 40 mg #Hypertension - continue coreg and lasix #CAD s/p CABG - continue aspirin and statin DVT prophylaxis: lovenox Code status: full code
[2019-06-01] MEDS ORDERED: Milk Of Magnesia 30 ML UDCUP PO SCH (17:15)
[2019-06-01] MEDS: Acetaminophen 325 MG TAB PO PRN (20:43)
[2019-06-02] MEDS: Acetaminophen 325 MG TAB PO PRN (01:24)
[2019-06-02] MEDS: Gabapentin 300 MG CAP PO PRN (01:36)
[2019-06-02] MEDS: Morphine 2 MG/ML SYRINGE SLOW IVP PRN ×2 (02:50→02:56)
--- NOTE | 2019-06-02 07:34 | RAD ---
KUB: Date 06/02/2019 INDICATION: Abdominal distention, rule out bowel obstruction. COMPARISON: None. FINDINGS: There is a prominent amount of retained stool within the colon. Small phleboliths seen within the low er hemipelvis. Lung bases demonstrate mild bibasilar atelectasis. There is moderate to severe lumbar spondylosis. IMPRESSION: Moderate prominent retained stool within the colon. POS: BH
--- NOTE | 2019-06-02 08:11 | PDOC.HOSPP ---
- Subjective Encounter Date: 05/31/19 Encounter Time: 16:30 Subjective: LATE ENTRY NOTE Patient still had reported persistent cough and wheezing. No abd pain. Feels fatigued still. 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 He told me if he has asbestos, he will get reimbursement and will call his change number operator he also reported that he had bad restless leg the night before and was wondering if he was getting his restless leg medicine - Objective Vital Signs & Weight: Vital Signs (12 hours) Temp Pulse Resp BP Pulse Ox 06/02/19 07:25 98.2 F 89 22 H 120/73 94 L 06/02/19 06:58 65 16 95 06/02/19 02:50 97.9 F 65 22 H 166/86 H 92 L 06/02/19 02:47 76 20 98 06/01/19 22:26 71 14 92 L Weight Admit Weight 212 lb Weight 212 lb I&O: 06/01/19 06/02/19 06/03/19 06:59 06:59 06:59 Intake Total 1520 2080 Output Total 1300 Balance 220 2080 Result Diagrams: 05/31/19 11:16 06/01/19 12:26 Hospitalist ROS - Review of Systems Constitutional: denies: fever, chills - Medication Medications: Active Medications Generic Name Dose Route Start Last Admin Trade Name Freq PRN Reason Stop Dose Admin Acetaminophen 650 mg 05/29/19 20:36 06/02/19 01:24 Tylenol PO 650 mg Q4H PRN Administration Headache/Fever/Mild Pain (1-3) Albuterol/Ipratropium 3 ml 05/29/19 22:30 06/02/19 06:58 Duoneb NEB 3 ml [id number] JAIME Administration Aspirin 81 mg 05/30/19 09:00 06/01/19 08:22 Ecotrin PO 81 mg DAILY JAIME Administration Carvedilol 3.125 mg 05/31/19 08:00 06/01/19 16:46 Coreg PO 3.125 mg BID-WM JAIME Administration Enoxaparin Sodium 40 mg 05/30/19 09:00 06/01/19 08:25 Lovenox SC 40 mg 0900 JAIME Administration Furosemide 40 mg 05/31/19 07:30 06/01/19 08:22 Lasix PO 40 mg DAILY-AC JAIME Administration Gabapentin 600 mg 05/29/19 20:45 06/02/19 01:36 Neurontin PO 600 mg TID PRN Administration NERVE PAIN Guaifenesin 600 mg 05/29/19 21:00 06/01/19 20:43 Mucinex PO 600 mg Q12HR JAIME Administration Guaifenesin/Dextromethorphan 10 ml 05/31/19 01:23 06/01/19 08:22 Diabetic Tussin Dm PO 10 ml Q4H PRN Administration Cough Cefepime HCl 2 gm/ Sodium 100 mls @ 200 mls/hr 05/29/19 22:00 06/01/19 21:02 Chloride IVPB 100 mls 1000,2200 JAIME Administration Morphine Sulfate 2 mg 05/29/19 13:04 06/02/19 02:56 Morphine SLOW IVP 2 mg Q4H PRN Administration Moderate Pain (4-6) Ondansetron HCl 4 mg 05/29/19 13:03 05/31/19 20:51 Zofran IVP 4 mg Q6H PRN Administration Nausea/Vomiting Oseltamivir Phosphate 75 mg 05/29/19 21:00 06/01/19 20:43 Tamiflu PO 06/03/19 09:01 75 mg BID JAIME Administration Pramipexole Dihydrochloride 0.5 mg 05/29/19 21:00 06/01/19 20:42 Mirapex PO 0.5 mg BID JAIME Administration - Exam General Appearance: NAD, awake alert Eye: PERRL, anicteric sclera ENT: normocephalic atraumatic, no oropharyngeal lesions Neck: no JVD Heart: RRR, no murmur, no gallops, no rubs Respiratory: CTAB Respiratory - other findings: wheezing noted Gastrointestinal: soft, non-tender, normal bowel sounds Gastrointestinal - other findings: mild distension Extremities: no cyanosis, no clubbing, 1+ LE edema Skin: normal turgor, no lesions, no rashes Hosp A/P - Plan Chest X ray: chronic appearing lung change, no acute finding Doppler US: no DVT Arterial US: diffuse atherosclerotic disease, no significant stenosis This is a 78 year old male with past medical history of COPD, restless leg, CAD s/p CABG, recnetly discharged for heart failure flare up who presented with persistent cough and shortness of breath, admitted for sepsis workup #Acute hypoxic respiratory failure likely from pneumonia vs COPD exacerbation vs mild CHF #Sepsis secondary to possible pneumonia #Influenza A - was febrile and tachycardic on admission. Chest X ray shows chronic lung appearing change. Patient is influenza +, started on tamiflu - blood cultures negative - increased IV steroids to 60 mg daily due to persistent wheezing - obtain CT chest to evaluate asbestosis Peripheral arterial disease - continue aspirin - no stenosis noted on ultrasound Lower extremity swelling - likely venous insufficiency vs CHF - venous dopplers shows no DVT #CHF -continue lasix 40 mg #Hypertension - continue coreg and lasix #CAD s/p CABG - continue aspirin and statin DVT prophylaxis: lovenox Code status: full code
[2019-06-02] MEDS ORDERED: Fleet Enema 133 ML BOT PR SCH (08:15)
[2019-06-02] MEDS: Polyethylene Glycol 3350 17 GM Packet PO SCH (08:24)
[2019-06-02] MEDS: Furosemide 40 MG TAB PO SCH (08:25)
[2019-06-02] MEDS: Aspirin 81 mg Enteric Coated Tablet PO SCH (08:25)
[2019-06-02] MEDS: Pramipexole Di-HCl 1 MG TAB PO SCH ×2 (08:25→22:11)
[2019-06-02] MEDS: predniSONE 50 MG TAB PO SCH (08:25)
[2019-06-02] MEDS: Carvedilol 3.125 MG TAB PO SCH ×2 (08:26→18:17)
[2019-06-02] MEDS: Oseltamivir 75 MG CAP PO SCH ×2 (08:27→22:12)
[2019-06-02] MEDS: guaiFENesin ER 600 MG TAB PO SCH ×2 (08:27→22:12)
[2019-06-02] MEDS: Enoxaparin Sodium 40 MG/0.4 ML SYRINGE SC SCH (08:28)
[2019-06-02] MEDS: Milk Of Magnesia 30 ML UDCUP PO SCH (08:28)
[2019-06-02 11:51] LABS: Hemoglobin 12.5 g/dL (14.0-18.0); Mean Corpuscular HGB CONC 32.3 g/dL (32.0-36.0); Mean Corpuscular Hemoglobin 30.1 pg (27.0-31.0); Mean Corpuscular Volume 93.1 fL (78.0-98.0); Mean Platelet Volume 7.3 fL (7.4-10.4); Platelet Count 260 thou/uL (130-400); RBC Distribution Width 14.8 % (11.5-14.5); Red Blood Cell (RBC) Count 4.15 mill/uL (4.70-6.10); White Blood Cell (WBC) Count 12.6 thou/uL (4.8-10.8)
[2019-06-02 12:10] LABS: Vancomycin, Trough 21.9 ug/mL
[2019-06-02 12:11] LABS: Anion Gap 14 mmol/L (10-20); BUN (Urea Nitrogen) 23 mg/dL (8.4-25.7); Calc. Creatinine Clearance 104 mL/min (70-130); Calcium 9.2 mg/dL (7.8-10.44); Carbon Dioxide 27 mmol/L (23-31); Chloride 97 mmol/L (98-107); Estimated GFR-MDRD Greater than 90; Glucose 100 mg/dL (83-110); Potassium 4.8 mmol/L (3.5-5.1); Sodium 133 mmol/L (136-145)
--- NOTE | 2019-06-02 17:27 | PDOC.HOSPP ---
- Subjective Encounter Date: 06/02/19 Encounter Time: 07:30 Subjective: The patient states he still feels fatigued on exertion, not at baseline. No chest pain. He feels some orthopnea. His abdomen feels tight, he did not have a bowel movement with milk of mag or prune juice. He will try alternative laxatives - Objective Vital Signs & Weight: Vital Signs (12 hours) Temp Pulse Resp BP Pulse Ox 06/02/19 10:10 64 16 95 06/02/19 08:20 94 L 06/02/19 07:25 98.2 F 89 22 H 120/73 94 L 06/02/19 06:58 65 16 95 Weight Admit Weight 212 lb Weight 212 lb I&O: 06/01/19 06/02/19 06/03/19 06:59 06:59 06:59 Intake Total 1520 2080 Output Total 1300 Balance 220 2080 Result Diagrams: 06/02/19 11:41 06/02/19 11:41 Hospitalist ROS - Review of Systems Constitutional: denies: fever, chills - Medication Medications: Active Medications Generic Name Dose Route Start Last Admin Trade Name Freq PRN Reason Stop Dose Admin Acetaminophen 650 mg 05/29/19 20:36 06/02/19 01:24 Tylenol PO 650 mg Q4H PRN Administration Headache/Fever/Mild Pain (1-3) Albuterol/Ipratropium 3 ml 05/29/19 22:30 06/02/19 13:53 Duoneb NEB 3 ml [id number] JAIME Administration Aspirin 81 mg 05/30/19 09:00 06/02/19 08:25 Ecotrin PO 81 mg DAILY JAIME Administration Carvedilol 3.125 mg 05/31/19 08:00 06/02/19 08:26 Coreg PO 3.125 mg BID-WM JAIME Administration Enoxaparin Sodium 40 mg 05/30/19 09:00 06/02/19 08:28 Lovenox SC 40 mg 0900 JAIME Administration Furosemide 40 mg 05/31/19 07:30 06/02/19 08:25 Lasix PO 40 mg DAILY-AC JAIME Administration Gabapentin 600 mg 05/29/19 20:45 06/02/19 01:36 Neurontin PO 600 mg TID PRN Administration NERVE PAIN Guaifenesin 600 mg 05/29/19 21:00 06/02/19 08:27 Mucinex PO 600 mg Q12HR JAIME Administration Guaifenesin/Dextromethorphan 10 ml 05/31/19 01:23 06/01/19 08:22 Diabetic Tussin Dm PO 10 ml Q4H PRN Administration Cough Magnesium Hydroxide 30 ml 06/02/19 09:00 06/02/19 08:28 Milk Of Magnesium PO 30 ml DAILY JAIME Administration Morphine Sulfate 2 mg 05/29/19 13:04 06/02/19 02:56 Morphine SLOW IVP 2 mg Q4H PRN Administration Moderate Pain (4-6) Ondansetron HCl 4 mg 05/29/19 13:03 05/31/19 20:51 Zofran IVP 4 mg Q6H PRN Administration Nausea/Vomiting Oseltamivir Phosphate 75 mg 05/29/19 21:00 06/02/19 08:27 Tamiflu PO 06/03/19 09:01 75 mg BID JAIME Administration Polyethylene Glycol 17 gm 06/02/19 09:00 06/02/19 08:24 Miralax PO 17 gm DAILY JAIME Administration Pramipexole Dihydrochloride 0.5 mg 05/29/19 21:00 06/02/19 08:25 Mirapex PO 0.5 mg BID JAIME Administration Prednisone 50 mg 06/02/19 08:00 06/02/19 08:25 Prednisone PO 50 mg QAM-WM JAIME Administration - Exam General Appearance: NAD, awake alert Eye: PERRL, anicteric sclera ENT: normocephalic atraumatic, no oropharyngeal lesions Neck: no JVD Heart: RRR, no murmur, no gallops, no rubs Respiratory: CTAB Respiratory - other findings: mild diminished breath sound at base Gastrointestinal: soft Gastrointestinal - other findings: distended, hypoactive bowel sounds Extremities: no cyanosis, no clubbing, no edema Skin: normal turgor, no lesions, no rashes Neurological: cranial nerve grossly intact, normal sensation to touch, no focal deficits, no new deficit Hosp A/P - Plan Chest X ray: chronic appearing lung change, no acute finding Doppler US: no DVT Arterial US: diffuse atherosclerotic disease, no significant stenosis 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 Chest X ray shows chronic lung appearing change. Patient is influenza +, started on tamiflu - blood cultures negative - wean prednisone back down to oral 40 mg - BNP normal - will check CTA chest to rule out PE. ECHO showed no wall motion abnormalities #Constipation - started milk of magnesia - will add miralax and enema Peripheral arterial disease - continue aspirin - no stenosis noted on ultrasound Lower extremity swelling - likely venous insufficiency vs CHF - venous dopplers shows no DVT #CHF -continue lasix 40 mg #Hypertension - continue coreg and lasix #CAD s/p CABG - continue aspirin and statin DVT prophylaxis: lovenox Code status: full code
[2019-06-02] MEDS: Cefdinir 300 MG CAP PO SCH (22:11)
[2019-06-03] MEDS: Diabetic Tussin DM 5 ML UDCUP PO PRN ×2 (04:13→15:22)
[2019-06-03 06:46] LABS: Hemoglobin 12.9 g/dL (14.0-18.0); Mean Corpuscular HGB CONC 32.2 g/dL (32.0-36.0); Mean Corpuscular Hemoglobin 29.8 pg (27.0-31.0); Mean Corpuscular Volume 92.4 fL (78.0-98.0); Mean Platelet Volume 7.7 fL (7.4-10.4); Platelet Count 268 thou/uL (130-400); RBC Distribution Width 14.6 % (11.5-14.5); Red Blood Cell (RBC) Count 4.32 mill/uL (4.70-6.10); White Blood Cell (WBC) Count 13.1 thou/uL (4.8-10.8)
[2019-06-03 07:08] LABS: Anion Gap 12 mmol/L (10-20); BUN (Urea Nitrogen) 22 mg/dL (8.4-25.7); Calc. Creatinine Clearance 110 mL/min (70-130); Calcium 9.5 mg/dL (7.8-10.44); Carbon Dioxide 27 mmol/L (23-31); Chloride 99 mmol/L (98-107); Estimated GFR-MDRD Greater than 90; Glucose 93 mg/dL (83-110); Potassium 4.5 mmol/L (3.5-5.1); Sodium 133 mmol/L (136-145)
[2019-06-03] MEDS: Carvedilol 3.125 MG TAB PO SCH ×2 (08:48→16:10)
[2019-06-03] MEDS: Pramipexole Di-HCl 1 MG TAB PO SCH ×2 (08:48→21:35)
[2019-06-03] MEDS: predniSONE 50 MG TAB PO SCH (08:48)
[2019-06-03] MEDS: Furosemide 40 MG TAB PO SCH (08:48)
[2019-06-03] MEDS: Cefdinir 300 MG CAP PO SCH ×2 (08:49→21:35)
[2019-06-03] MEDS: guaiFENesin ER 600 MG TAB PO SCH ×2 (08:49→21:36)
[2019-06-03] MEDS: Oseltamivir 75 MG CAP PO SCH (08:49)
[2019-06-03] MEDS: Milk Of Magnesia 30 ML UDCUP PO SCH (08:49)
[2019-06-03] MEDS: Aspirin 81 mg Enteric Coated Tablet PO SCH (08:49)
[2019-06-03] MEDS: Polyethylene Glycol 3350 17 GM Packet PO SCH (08:50)
[2019-06-03] MEDS: Enoxaparin Sodium 40 MG/0.4 ML SYRINGE SC SCH (08:50)
--- NOTE | 2019-06-03 15:06 | PDOC.HOSPP ---
- Subjective Encounter Date: 06/03/19 Encounter Time: 10:45 Subjective: sitting in the chair, still feels SOB, but states better than admission times. Lives alone and has [facility] 5x /week. - Objective Vital Signs & Weight: Vital Signs (12 hours) Temp Pulse Resp BP BP Pulse Ox 06/03/19 12:00 98.4 F 65 20 152/76 H 96 06/03/19 11:08 75 20 94 L 06/03/19 08:00 93 L 06/03/19 07:08 71 20 91 L 06/03/19 04:00 98.4 F 69 20 137/84 95 Weight Admit Weight 212 lb Weight 212 lb I&O: 06/02/19 06/03/19 06/04/19 06:59 06:59 06:59 Intake Total 2079 800 Balance 2079 800 Result Diagrams: 06/03/19 06:36 06/03/19 06:36 Hospitalist ROS - Medication Medications: Active Medications Generic Name Dose Route Start Last Admin Trade Name Freq PRN Reason Stop Dose Admin Acetaminophen 650 mg 05/29/19 20:36 06/02/19 01:24 Tylenol PO 650 mg Q4H PRN Administration Headache/Fever/Mild Pain (1-3) Albuterol/Ipratropium 3 ml 05/29/19 22:30 06/03/19 13:58 Duoneb NEB 3 ml [id number] JAIME Administration Aspirin 81 mg 05/30/19 09:00 06/03/19 08:49 Ecotrin PO 81 mg DAILY JAIME Administration Carvedilol 3.125 mg 05/31/19 08:00 06/03/19 08:48 Coreg PO 3.125 mg BID-WM JAIME Administration Cefdinir 300 mg 06/02/19 21:00 06/03/19 08:49 Omnicef PO 300 mg BID JAIME Administration Enoxaparin Sodium 40 mg 05/30/19 09:00 06/03/19 08:50 Lovenox SC 40 mg 0900 JAIME Administration Furosemide 40 mg 05/31/19 07:30 06/03/19 08:48 Lasix PO 40 mg DAILY-AC JAIME Administration Gabapentin 600 mg 05/29/19 20:45 06/02/19 01:36 Neurontin PO 600 mg TID PRN Administration NERVE PAIN Guaifenesin 600 mg 05/29/19 21:00 06/03/19 08:49 Mucinex PO 600 mg Q12HR JAIME Administration Guaifenesin/Dextromethorphan 10 ml 05/31/19 01:23 06/03/19 04:13 Diabetic Tussin Dm PO 10 ml Q4H PRN Administration Cough Magnesium Hydroxide 30 ml 06/02/19 09:00 06/03/19 08:49 Milk Of Magnesium PO 30 ml DAILY JAIME Administration Morphine Sulfate 2 mg 05/29/19 13:04 06/02/19 02:56 Morphine SLOW IVP 2 mg Q4H PRN Administration Moderate Pain (4-6) Ondansetron HCl 4 mg 05/29/19 13:03 05/31/19 20:51 Zofran IVP 4 mg Q6H PRN Administration Nausea/Vomiting Polyethylene Glycol 17 gm 06/02/19 09:00 06/03/19 08:50 Miralax PO 17 gm DAILY JAIME Administration Pramipexole Dihydrochloride 0.5 mg 05/29/19 21:00 06/03/19 08:48 Mirapex PO 0.5 mg BID JAIME Administration Prednisone 50 mg 06/02/19 08:00 06/03/19 08:48 Prednisone PO 50 mg QAM-WM JAIME Administration Sodium Chloride 10 ml 06/02/19 09:00 06/03/19 08:50 Flush - Normal Saline IVF 10 ml Q12HR JAIME Administration - Exam General Appearance: awake alert, ill appearing Eye: PERRL ENT: normocephalic atraumatic Neck: supple Heart: RRR Respiratory: normal chest expansion, rales, wheezes Gastrointestinal: soft, normal bowel sounds Extremities - other findings: chronic venous stasis, Neurological: cranial nerve grossly intact, no focal deficits Hosp A/P - Plan #Acute hypoxic respiratory failure likely from pneumonia vs COPD exacerbation vs mild CHF #Sepsis secondary to possible pneumonia #Influenza A #Asbestosis - Chest X ray shows chronic lung appearing change. Patient is influenza +, started on tamiflu - blood cultures negative - wean prednisone back down to oral 40 mg - BNP normal - will check CTA chest to rule out PE.----. 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 ECHO showed no wall motion abnormalities #Constipation - started milk of magnesia - will add miralax and enema Peripheral arterial disease - continue aspirin - no stenosis noted on ultrasound Lower extremity swelling - likely venous insufficiency vs CHF - venous dopplers shows no DVT #CHF -continue lasix 40 mg #Hypertension - continue coreg and lasix #CAD s/p CABG - continue aspirin and statin DVT prophylaxis: lovenox Code status: full code
[2019-06-03] MEDS ORDERED: Furosemide 20 MG/2 ML VIAL SLOW IVP SCH (15:30)
[2019-06-03] MEDS: Morphine 2 MG/ML SYRINGE SLOW IVP PRN (16:21)
[2019-06-04] MEDS: Diabetic Tussin DM 5 ML UDCUP PO PRN ×2 (04:32→20:08)
[2019-06-04] MEDS: Morphine 2 MG/ML SYRINGE SLOW IVP PRN ×2 (04:54→20:14)
[2019-06-04 05:39] LABS: #Basophils 0.1 thou/uL (0.0-0.2); #Eosinphils 0.1 thou/uL (0.0-0.7); #Lymphocytes 2.2 thou/uL (1.20-3.40); #Monocytes 1.5 thou/uL (0.11-0.59); #Neutrophils 10.4 thou/uL (1.40-6.50); %Basophils 0.4 % (0.0-1.0); %Eosinophils 0.4 % (0.0-10.0); %Lymphocytes 15.6 % (21.0-51.0); %Monocytes 10.5 % (0.0-10.0); %Neutrophils 73.2 % (42.0-75.0); Mean Corpuscular HGB CONC 32.9 g/dL (32.0-36.0); Mean Corpuscular Hemoglobin 30.1 pg (27.0-31.0); Mean Corpuscular Volume 91.5 fL (78.0-98.0); Mean Platelet Volume 7.4 fL (7.4-10.4); Platelet Count 246 thou/uL (130-400); RBC Distribution Width 14.7 % (11.5-14.5); Red Blood Cell (RBC) Count 4.31 mill/uL (4.70-6.10); White Blood Cell (WBC) Count 14.2 thou/uL (4.8-10.8)
[2019-06-04] MEDS: Polyethylene Glycol 3350 17 GM Packet PO SCH (10:53)
[2019-06-04] MEDS: Aspirin 81 mg Enteric Coated Tablet PO SCH (10:54)
[2019-06-04] MEDS: Pramipexole Di-HCl 1 MG TAB PO SCH ×2 (10:54→20:08)
[2019-06-04] MEDS: Furosemide 40 MG TAB PO SCH (10:54)
[2019-06-04] MEDS: Cefdinir 300 MG CAP PO SCH ×2 (10:54→20:08)
[2019-06-04] MEDS: predniSONE 50 MG TAB PO SCH (10:54)
[2019-06-04] MEDS: Carvedilol 3.125 MG TAB PO SCH ×2 (10:54→17:11)
[2019-06-04] MEDS: Enoxaparin Sodium 40 MG/0.4 ML SYRINGE SC SCH (10:55)
[2019-06-04] MEDS: Milk Of Magnesia 30 ML UDCUP PO SCH (10:55)
[2019-06-04] MEDS: Gabapentin 300 MG CAP PO PRN (10:55)
[2019-06-04] MEDS: guaiFENesin ER 600 MG TAB PO SCH ×2 (11:00→20:08)
--- NOTE | 2019-06-04 13:03 | CON ---
DATE OF CONSULTATION: 06/04/2019 REASON FOR CONSULTATION: COPD exacerbation. CONSULTING PHYSICIAN: Dr. Potter. This encompasses 50 minutes of time, of that time greater 50% was spent with the patient and/or the patient's unit in the hospital. HISTORY OF PRESENT ILLNESS: This is a 78-year-old who was initially hospitalized on 05/28 for shortness of breath, cough, and congestion. He says he has not smoked in about 15 years. He was initially febrile at the time of presentation. His flu test was positive for type A flu. He has been receiving appropriate therapy by the hospitalist group and is slowly starting to respond. PAST MEDICAL HISTORY: 1. COPD. 2. Hypertension. 3. Hyperlipidemia. 4. Coronary artery disease. 5. Asbestos exposure. PAST SURGICAL HISTORY: Hernia repair and circumcision. Also had coronary artery bypass grafting surgery and back surgery. SOCIAL HISTORY: Quit smoking 15 years ago after smoking for about 20 years. Does not consume alcohol. Used to smoke marijuana but has not done that in quite some time. FAMILY MEDICAL HISTORY: Remarkable for esophageal cancer and leukemia. REVIEW OF SYSTEMS: Twelve-point review of systems is otherwise negative. PHYSICAL EXAMINATION: VITAL SIGNS: Temperature 98.0, pulse 78, respirations 20, O2 saturation 95% on 3 L, blood pressure 142/70. GENERAL: He is awake, alert, in no distress. HEENT: Unremarkable. NECK: No adenopathy or JVD. LUNGS: Clear without wheezing or rhonchi. CARDIOVASCULAR: S1 and S2 regular without audible murmur. ABDOMEN: Soft and nontender. EXTREMITIES: No clubbing, cyanosis, or edema. LABORATORY DATA: White blood cell count 14, hematocrit 39.4, and platelet count 246. Sodium 133, potassium 4.5, chloride 99, CO2 of 27, BUN 22, creatinine 0.7, glucose 93. I reviewed his x-ray and CT scan which were both unremarkable. ASSESSMENT: 1. Chronic obstructive pulmonary disease with exacerbation. 2. Type A flu. PLAN: 1. I agree with current treatment, steroids, nebulization treatments, finish out antibiotics. I am assuming that he has already had a course of Tamiflu. If he has not, then it would be too late to start that. The patient will likely need oxygen at home. 2. The asbestos plaques seen on the CT scan are of no consequence at this time and indicates asbestos exposure, not mesothelioma or asbestosis. That issue would need to be followed as an outpatient, but that is not a pressing issue at this time. Job ID: [id number]
--- NOTE | 2019-06-04 13:34 | PDOC.HOSPP ---
- Subjective Encounter Date: 06/04/19 Encounter Time: 10:55 Subjective: sitting in the chair, yellowish phlegm in the cup. talk t o DR. Navarrete. - Objective Vital Signs & Weight: Vital Signs (12 hours) Temp Pulse Resp BP Pulse Ox 06/04/19 10:16 88 20 95 06/04/19 08:00 94 L 06/04/19 07:27 98.0 F 77 20 142/70 H 90 L 06/04/19 06:35 62 20 96 06/04/19 04:00 98.6 F 66 18 145/72 H 87 L 06/04/19 02:28 68 24 H 94 L Weight Admit Weight 212 lb Weight 212 lb I&O: 06/03/19 06/04/19 06/05/19 06:59 06:59 06:59 Intake Total 800 720 480 Balance 800 720 480 Result Diagrams: 06/04/19 05:29 06/03/19 06:36 Hospitalist ROS - Medication Medications: Active Medications Generic Name Dose Route Start Last Admin Trade Name Freq PRN Reason Stop Dose Admin Acetaminophen 650 mg 05/29/19 20:36 06/02/19 01:24 Tylenol PO 650 mg Q4H PRN Administration Headache/Fever/Mild Pain (1-3) Albuterol/Ipratropium 3 ml 05/29/19 22:30 06/04/19 10:16 Duoneb NEB 3 ml [id number] JAIME Administration Aspirin 81 mg 05/30/19 09:00 06/04/19 10:54 Ecotrin PO 81 mg DAILY JAIME Administration Carvedilol 3.125 mg 05/31/19 08:00 06/04/19 10:54 Coreg PO 3.125 mg BID-WM JAIME Administration Cefdinir 300 mg 06/02/19 21:00 06/04/19 10:54 Omnicef PO 300 mg BID JAIME Administration Enoxaparin Sodium 40 mg 05/30/19 09:00 06/04/19 10:55 Lovenox SC 40 mg 0900 JAIME Administration Furosemide 40 mg 05/31/19 07:30 06/04/19 10:54 Lasix PO 40 mg DAILY-AC JAIME Administration Gabapentin 600 mg 05/29/19 20:45 06/04/19 10:55 Neurontin PO 600 mg TID PRN Administration NERVE PAIN Guaifenesin 600 mg 05/29/19 21:00 06/04/19 11:00 Mucinex PO 600 mg Q12HR JAIME Administration Guaifenesin/Dextromethorphan 10 ml 05/31/19 01:23 06/04/19 04:32 Diabetic Tussin Dm PO 10 ml Q4H PRN Administration Cough Magnesium Hydroxide 30 ml 06/02/19 09:00 06/04/19 10:55 Milk Of Magnesium PO Not Given DAILY JAIME Morphine Sulfate 2 mg 05/29/19 13:04 06/04/19 04:54 Morphine SLOW IVP 2 mg Q4H PRN Administration Moderate Pain (4-6) Ondansetron HCl 4 mg 05/29/19 13:03 05/31/19 20:51 Zofran IVP 4 mg Q6H PRN Administration Nausea/Vomiting Polyethylene Glycol 17 gm 06/02/19 09:00 06/04/19 10:53 Miralax PO Not Given DAILY JAIME Pramipexole Dihydrochloride 0.5 mg 05/29/19 21:00 06/04/19 10:54 Mirapex PO 0.5 mg BID JAIME Administration Prednisone 50 mg 06/02/19 08:00 06/04/19 10:54 Prednisone PO 50 mg QAM-WM JAIME Administration Sodium Chloride 10 ml 06/02/19 09:00 06/04/19 10:55 Flush - Normal Saline IVF 10 ml Q12HR JAIME Administration Sodium Chloride 10 ml 06/02/19 08:12 06/03/19 16:22 Flush - Normal Saline IVF 10 ml PRN PRN Administration Saline Flush - Exam General Appearance: NAD, awake alert Eye: PERRL ENT: normocephalic atraumatic Neck: supple Heart: RRR Respiratory: normal chest expansion, rales, rhonchi Gastrointestinal: soft, normal bowel sounds Gastrointestinal - other findings: protuberant Hosp A/P - Plan #Acute hypoxic respiratory failure likely from pneumonia vs COPD exacerbation vs mild CHF #Sepsis secondary to possible pneumonia #Influenza A #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 Patient is influenza +, started on tamiflu - blood cultures negative - wean prednisone back down to oral 40 mg - BNP normal - will check CTA chest to rule out PE.----. 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 ECHO showed no wall motion abnormalities #Constipation - started milk of magnesia - will add miralax and enema Peripheral arterial disease - continue aspirin - no stenosis noted on ultrasound Lower extremity swelling - likely venous insufficiency vs CHF - venous dopplers shows no DVT #CHF -continue lasix 40 mg #Hypertension - continue coreg and lasix #CAD s/p CABG - continue aspirin and statin DVT prophylaxis: lovenox Code status: full code needs pulmonary rehab. c/s placed.
[2019-06-05 05:28] LABS: #Lymphocytes 1.6 thou/uL (1.20-3.40); #Monocytes 1.2 thou/uL (0.11-0.59); #Neutrophils 10.7 thou/uL (1.40-6.50); %Basophils 0.3 % (0.0-1.0); %Eosinophils 0.3 % (0.0-10.0); %Lymphocytes 11.9 % (21.0-51.0); %Monocytes 8.5 % (0.0-10.0); Hemoglobin 12.2 g/dL (14.0-18.0); Mean Corpuscular HGB CONC 33.1 g/dL (32.0-36.0); Mean Corpuscular Hemoglobin 30.2 pg (27.0-31.0); Mean Corpuscular Volume 91.3 fL (78.0-98.0); Mean Platelet Volume 7.6 fL (7.4-10.4); Platelet Count 241 thou/uL (130-400); RBC Distribution Width 14.8 % (11.5-14.5); Red Blood Cell (RBC) Count 4.05 mill/uL (4.70-6.10); White Blood Cell (WBC) Count 13.6 thou/uL (4.8-10.8)
[2019-06-05] MEDS: Pramipexole Di-HCl 1 MG TAB PO SCH ×2 (08:39→19:55)
[2019-06-05] MEDS: Cefdinir 300 MG CAP PO SCH ×2 (08:39→19:54)
[2019-06-05] MEDS: predniSONE 50 MG TAB PO SCH (08:40)
[2019-06-05] MEDS: Carvedilol 3.125 MG TAB PO SCH ×2 (08:40→16:50)
[2019-06-05] MEDS: Aspirin 81 mg Enteric Coated Tablet PO SCH (08:40)
[2019-06-05] MEDS: Enoxaparin Sodium 40 MG/0.4 ML SYRINGE SC SCH (08:41)
[2019-06-05] MEDS: Furosemide 40 MG TAB PO SCH (08:41)
[2019-06-05] MEDS: guaiFENesin ER 600 MG TAB PO SCH ×2 (08:41→19:55)
[2019-06-05] MEDS: Milk Of Magnesia 30 ML UDCUP PO SCH (08:42)
[2019-06-05] MEDS: Polyethylene Glycol 3350 17 GM Packet PO SCH (08:42)
[2019-06-05 09:24] LABS: Anion Gap 16 mmol/L (10-20); BUN (Urea Nitrogen) 22 mg/dL (8.4-25.7); Calc. Creatinine Clearance 104 mL/min (70-130); Calcium 9.4 mg/dL (7.8-10.44); Carbon Dioxide 22 mmol/L (23-31); Chloride 98 mmol/L (98-107); Estimated GFR-MDRD Greater than 90; Glucose 190 mg/dL (83-110); Potassium 4.2 mmol/L (3.5-5.1); Sodium 132 mmol/L (136-145)
--- NOTE | 2019-06-05 15:33 | PDOC.HOSPP ---
- Subjective Encounter Date: 06/05/19 Encounter Time: 09:50 Subjective: d/w pt reg.. pulm rehab vss. home health. prefers to go home. he has home health pre-arranged. submitted HOme O2 paper w.. CM. - Objective Vital Signs & Weight: Vital Signs (12 hours) Temp Pulse Resp BP Pulse Ox 06/05/19 14:36 72 16 94 L 06/05/19 11:10 71 18 96 06/05/19 08:00 96 06/05/19 07:37 98.0 F 82 20 138/82 96 06/05/19 06:40 73 14 95 Weight Admit Weight 212 lb Weight 212 lb I&O: 06/04/19 06/05/19 06/06/19 06:59 06:59 06:59 Intake Total 720 1360 Output Total 950 Balance 720 410 Result Diagrams: 06/05/19 05:03 06/05/19 08:58 Hospitalist ROS - Medication Medications: Active Medications Generic Name Dose Route Start Last Admin Trade Name Freq PRN Reason Stop Dose Admin Acetaminophen 650 mg 05/29/19 20:36 06/02/19 01:24 Tylenol PO 650 mg Q4H PRN Administration Headache/Fever/Mild Pain (1-3) Albuterol/Ipratropium 3 ml 05/29/19 22:30 06/05/19 14:36 Duoneb NEB 3 ml [id number] JAIME Administration Aspirin 81 mg 05/30/19 09:00 06/05/19 08:40 Ecotrin PO 81 mg DAILY JAIME Administration Carvedilol 3.125 mg 05/31/19 08:00 06/05/19 08:40 Coreg PO 3.125 mg BID-WM JAIME Administration Cefdinir 300 mg 06/02/19 21:00 06/05/19 08:39 Omnicef PO 300 mg BID JAIME Administration Enoxaparin Sodium 40 mg 05/30/19 09:00 06/05/19 08:41 Lovenox SC 40 mg 0900 JAIME Administration Furosemide 40 mg 05/31/19 07:30 06/05/19 08:41 Lasix PO 40 mg DAILY-AC JAIME Administration Gabapentin 600 mg 05/29/19 20:45 06/04/19 10:55 Neurontin PO 600 mg TID PRN Administration NERVE PAIN Guaifenesin 600 mg 05/29/19 21:00 06/05/19 08:41 Mucinex PO 600 mg Q12HR JAIME Administration Guaifenesin/Dextromethorphan 10 ml 05/31/19 01:23 06/04/19 20:08 Diabetic Tussin Dm PO 10 ml Q4H PRN Administration Cough Magnesium Hydroxide 30 ml 06/02/19 09:00 06/05/19 08:42 Milk Of Magnesium PO Not Given DAILY JAIME Morphine Sulfate 2 mg 05/29/19 13:04 06/04/19 20:14 Morphine SLOW IVP 2 mg Q4H PRN Administration Moderate Pain (4-6) Ondansetron HCl 4 mg 05/29/19 13:03 05/31/19 20:51 Zofran IVP 4 mg Q6H PRN Administration Nausea/Vomiting Polyethylene Glycol 17 gm 06/02/19 09:00 06/05/19 08:42 Miralax PO Not Given DAILY JAIME Pramipexole Dihydrochloride 0.5 mg 05/29/19 21:00 06/05/19 08:39 Mirapex PO 0.5 mg BID JAIME Administration Prednisone 50 mg 06/02/19 08:00 06/05/19 08:40 Prednisone PO 50 mg QAM-WM JAIME Administration Sodium Chloride 10 ml 06/02/19 09:00 06/05/19 08:43 Flush - Normal Saline IVF 10 ml Q12HR JAIME Administration Sodium Chloride 10 ml 06/02/19 08:12 06/03/19 16:22 Flush - Normal Saline IVF 10 ml PRN PRN Administration Saline Flush - Exam General Appearance: NAD, awake alert Eye: PERRL ENT: normocephalic atraumatic Neck: supple Heart: RRR Respiratory: CTAB, normal chest expansion Gastrointestinal: soft, normal bowel sounds Hosp A/P - Plan #Acute hypoxic respiratory failure likely from pneumonia vs COPD exacerbation vs mild CHF #Sepsis secondary to possible pneumonia #Influenza A #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 Patient is influenza +, started on tamiflu - blood cultures negative - wean prednisone back down to oral 40 mg - BNP normal - will check CTA chest to rule out PE.----. 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 ECHO showed no wall motion abnormalities #Constipation - started milk of magnesia - will add miralax and enema Peripheral arterial disease - continue aspirin - no stenosis noted on ultrasound Lower extremity swelling - likely venous insufficiency vs CHF - venous dopplers shows no DVT #CHF -continue lasix 40 mg #Hypertension - continue coreg and lasix #CAD s/p CABG - continue aspirin and statin DVT prophylaxis: lovenox Code status: full code needs pulmonary rehab. c/s placed. -pt prefers to go home and not to rehab has HHC x 5 days a week. pending [facility] O2 approval and arrival prior to dc.
[2019-06-05] MEDS: Morphine 2 MG/ML SYRINGE SLOW IVP PRN (19:56)
[2019-06-05] MEDS: Diabetic Tussin DM 5 ML UDCUP PO PRN (19:58)
[2019-06-06 05:36] LABS: #Eosinphils 0.1 thou/uL (0.0-0.7); #Lymphocytes 2.3 thou/uL (1.20-3.40); #Monocytes 1.4 thou/uL (0.11-0.59); #Neutrophils 11.7 thou/uL (1.40-6.50); %Basophils 0.2 % (0.0-1.0); %Eosinophils 0.4 % (0.0-10.0); %Lymphocytes 14.8 % (21.0-51.0); %Monocytes 9.1 % (0.0-10.0); %Neutrophils 75.5 % (42.0-75.0); Hemoglobin 12.9 g/dL (14.0-18.0); Mean Corpuscular HGB CONC 32.6 g/dL (32.0-36.0); Mean Corpuscular Hemoglobin 30.2 pg (27.0-31.0); Mean Corpuscular Volume 92.4 fL (78.0-98.0); Mean Platelet Volume 7.8 fL (7.4-10.4); Platelet Count 248 thou/uL (130-400); RBC Distribution Width 14.8 % (11.5-14.5); Red Blood Cell (RBC) Count 4.28 mill/uL (4.70-6.10); White Blood Cell (WBC) Count 15.5 thou/uL (4.8-10.8)
[2019-06-06] MEDS: Diabetic Tussin DM 5 ML UDCUP PO PRN ×4 (05:42→21:13)
[2019-06-06] MEDS: Furosemide 40 MG TAB PO SCH (08:49)
[2019-06-06] MEDS: Aspirin 81 mg Enteric Coated Tablet PO SCH (08:49)
[2019-06-06] MEDS: Pramipexole Di-HCl 1 MG TAB PO SCH ×2 (08:49→20:14)
[2019-06-06] MEDS: predniSONE 50 MG TAB PO SCH (08:50)
[2019-06-06] MEDS: Cefdinir 300 MG CAP PO SCH ×2 (08:50→20:16)
[2019-06-06] MEDS: Milk Of Magnesia 30 ML UDCUP PO SCH (08:50)
[2019-06-06] MEDS: Polyethylene Glycol 3350 17 GM Packet PO SCH (08:50)
[2019-06-06] MEDS: guaiFENesin ER 600 MG TAB PO SCH ×2 (08:50→20:16)
[2019-06-06] MEDS: Carvedilol 3.125 MG TAB PO SCH ×2 (08:50→17:09)
[2019-06-06] MEDS: Enoxaparin Sodium 40 MG/0.4 ML SYRINGE SC SCH (08:58)
[2019-06-06] MEDS: Morphine 2 MG/ML SYRINGE SLOW IVP PRN ×3 (08:59→21:14)
[2019-06-06 09:29] LABS: Anion Gap 15 mmol/L (10-20); BUN (Urea Nitrogen) 21 mg/dL (8.4-25.7); Calc. Creatinine Clearance 104 mL/min (70-130); Calcium 9.9 mg/dL (7.8-10.44); Carbon Dioxide 26 mmol/L (23-31); Chloride 96 mmol/L (98-107); Estimated GFR-MDRD Greater than 90; Glucose 126 mg/dL (83-110); Potassium 3.9 mmol/L (3.5-5.1); Sodium 133 mmol/L (136-145)
--- NOTE | 2019-06-06 13:14 | PDOC.HOSPP ---
- Subjective Encounter Date: 06/06/19 Encounter Time: 10:45 Subjective: pt feels worse than yesterday. spent long time explaining his labile pulmonary condition and the treatments given so far. His home health is sick, plan for rehab option. His wbcs high today -- prob..steroid induced, will check CXR and UA to make sure no new etiology. d/w RN. - Objective Vital Signs & Weight: Vital Signs (12 hours) Temp Pulse Resp BP Pulse Ox 06/06/19 09:45 80 16 96 06/06/19 08:00 98 06/06/19 07:44 98.5 F 75 16 145/74 H 98 06/06/19 07:00 70 16 96 06/06/19 02:11 88 16 96 Weight Admit Weight 212 lb Weight 212 lb I&O: 06/05/19 06/06/19 06/07/19 06:59 06:59 06:59 Intake Total 1360 500 Output Total 950 450 Balance 410 50 Result Diagrams: 06/06/19 05:01 06/06/19 08:34 Hospitalist ROS - Medication Medications: Active Medications Generic Name Dose Route Start Last Admin Trade Name Freq PRN Reason Stop Dose Admin Acetaminophen 650 mg 05/29/19 20:36 06/02/19 01:24 Tylenol PO 650 mg Q4H PRN Administration Headache/Fever/Mild Pain (1-3) Albuterol/Ipratropium 3 ml 05/29/19 22:30 06/06/19 09:45 Duoneb NEB 3 ml [id number] JAIME Administration Aspirin 81 mg 05/30/19 09:00 06/06/19 08:49 Ecotrin PO 81 mg DAILY JAIME Administration Carvedilol 3.125 mg 05/31/19 08:00 06/06/19 08:50 Coreg PO 3.125 mg BID-WM JAIME Administration Cefdinir 300 mg 06/02/19 21:00 06/06/19 08:50 Omnicef PO 300 mg BID JAIME Administration Enoxaparin Sodium 40 mg 05/30/19 09:00 06/06/19 08:58 Lovenox SC 40 mg 0900 JAIME Administration Furosemide 40 mg 05/31/19 07:30 06/06/19 08:49 Lasix PO 40 mg DAILY-AC JAIME Administration Gabapentin 600 mg 05/29/19 20:45 06/04/19 10:55 Neurontin PO 600 mg TID PRN Administration NERVE PAIN Guaifenesin 600 mg 05/29/19 21:00 06/06/19 08:50 Mucinex PO 600 mg Q12HR JAIME Administration Guaifenesin/Dextromethorphan 10 ml 05/31/19 01:23 06/06/19 08:52 Diabetic Tussin Dm PO 10 ml Q4H PRN Administration Cough Magnesium Hydroxide 30 ml 06/02/19 09:00 06/06/19 08:50 Milk Of Magnesium PO Not Given DAILY JAIME Morphine Sulfate 2 mg 05/29/19 13:04 06/06/19 08:59 Morphine SLOW IVP 2 mg Q4H PRN Administration Moderate Pain (4-6) Ondansetron HCl 4 mg 05/29/19 13:03 05/31/19 20:51 Zofran IVP 4 mg Q6H PRN Administration Nausea/Vomiting Polyethylene Glycol 17 gm 06/02/19 09:00 06/06/19 08:50 Miralax PO Not Given DAILY JAIME Pramipexole Dihydrochloride 0.5 mg 05/29/19 21:00 06/06/19 08:49 Mirapex PO 0.5 mg BID JAIME Administration Prednisone 50 mg 06/02/19 08:00 06/06/19 08:50 Prednisone PO 50 mg QAM-WM JAIME Administration Sodium Chloride 10 ml 06/02/19 09:00 06/06/19 08:50 Flush - Normal Saline IVF 10 ml Q12HR JAIME Administration Sodium Chloride 10 ml 06/02/19 08:12 06/03/19 16:22 Flush - Normal Saline IVF 10 ml PRN PRN Administration Saline Flush - Exam General Appearance: NAD, awake alert Eye: PERRL ENT: normocephalic atraumatic Neck: supple Heart: RRR, normal peripheral pulses Respiratory: normal chest expansion, no tachypnea, rales, rhonchi Gastrointestinal: soft, normal bowel sounds Hosp A/P - Plan #Acute hypoxic respiratory failure likely from pneumonia vs COPD exacerbation vs mild CHF #Sepsis secondary to possible pneumonia #Influenza A #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 Patient is influenza +, started on tamiflu - blood cultures negative - wean prednisone back down to oral 40 mg - BNP normal - will check CTA chest to rule out PE.----. 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 ECHO showed no wall motion abnormalities #Constipation - started milk of magnesia - will add miralax and enema Peripheral arterial disease - continue aspirin - no stenosis noted on ultrasound Lower extremity swelling - likely venous insufficiency vs CHF - venous dopplers shows no DVT #CHF -continue lasix 40 mg #Hypertension - continue coreg and lasix #CAD s/p CABG - continue aspirin and statin DVT prophylaxis: lovenox Code status: full code needs pulmonary rehab. c/s placed. -pt prefers to go home and not to rehab has HHC x 5 days a week. pending [facility] O2 approval and arrival prior to spent long time explaining his labile pulmonary condition and the treatments given so far. His home health is sick, plan for rehab option. His wbcs high today -- prob..steroid induced, will check CXR and UA to make sure no new etiology. d/w RN. Home O2 aranged but plan changed for him to go to rehab.
[2019-06-06 15:35] LABS: Bacteria/HPF None Seen HPF (None Seen); Bilirubin Negative (Negative); Blood, Urine Negative (Negative); Clarity Clear (Clear); Glucose, Urine (Dipstick) Normal (Negative); Leukocyte Negative Leu/uL (Negative); Nitrite Negative (Negative); Protein, Urine (Dipstick) Negative (Neg-Trace); RBC/HPF 0-3 HPF (0-3); Squamous Epithelial None Seen HPF (0-3); Urobilinogen Normal mg/dL (Less than 2); WBC/HPF 0-3 HPF (0-3)
[2019-06-06 15:36] LABS: Urine Culture Reflex No No
[2019-06-06] MEDS: Gabapentin 300 MG CAP PO PRN (20:16)
[2019-06-07] MEDS: Furosemide 40 MG TAB PO SCH (07:45)
[2019-06-07] MEDS: Carvedilol 3.125 MG TAB PO SCH (07:45)
[2019-06-07] MEDS: guaiFENesin ER 600 MG TAB PO SCH (07:45)
[2019-06-07] MEDS: Pramipexole Di-HCl 1 MG TAB PO SCH (07:45)
[2019-06-07] MEDS: Aspirin 81 mg Enteric Coated Tablet PO SCH (07:45)
[2019-06-07] MEDS: predniSONE 50 MG TAB PO SCH (07:45)
[2019-06-07] MEDS: Cefdinir 300 MG CAP PO SCH (07:45)
[2019-06-07] MEDS: Polyethylene Glycol 3350 17 GM Packet PO SCH (07:46)
[2019-06-07] MEDS: Milk Of Magnesia 30 ML UDCUP PO SCH (07:46)
[2019-06-07] MEDS: Diabetic Tussin DM 5 ML UDCUP PO PRN (07:48)
[2019-06-07] MEDS: Enoxaparin Sodium 40 MG/0.4 ML SYRINGE SC SCH (07:52)
[2019-06-07] MEDS: Morphine 2 MG/ML SYRINGE SLOW IVP PRN (09:15)
[2019-06-07 10:03] LABS: #Basophils 0.1 thou/uL (0.0-0.2); #Eosinphils 0.1 thou/uL (0.0-0.7); #Lymphocytes 1.4 thou/uL (1.20-3.40); #Monocytes 0.9 thou/uL (0.11-0.59); %Basophils 0.8 % (0.0-1.0); %Eosinophils 0.8 % (0.0-10.0); %Lymphocytes 7.8 % (21.0-51.0); %Neutrophils 85.6 % (42.0-75.0); Mean Corpuscular HGB CONC 32.8 g/dL (32.0-36.0); Mean Corpuscular Hemoglobin 30.2 pg (27.0-31.0); Mean Corpuscular Volume 91.9 fL (78.0-98.0); Mean Platelet Volume 7.7 fL (7.4-10.4); Platelet Count 248 thou/uL (130-400); RBC Distribution Width 14.5 % (11.5-14.5); Red Blood Cell (RBC) Count 4.33 mill/uL (4.70-6.10); White Blood Cell (WBC) Count 17.5 thou/uL (4.8-10.8)
[2019-06-07 10:24] LABS: Anion Gap 10 mmol/L (10-20); BUN (Urea Nitrogen) 24 mg/dL (8.4-25.7); Calc. Creatinine Clearance 92 mL/min (70-130); Calcium 9.7 mg/dL (7.8-10.44); Carbon Dioxide 33 mmol/L (23-31); Chloride 94 mmol/L (98-107); Estimated GFR-MDRD 79; Glucose 108 mg/dL (83-110); Potassium 4.1 mmol/L (3.5-5.1); Sodium 133 mmol/L (136-145)
[2019-06-07 11:37] VITALS: BP 131/60; TEMP 98.1
--- NOTE | 2019-06-07 17:45 | DIS ---
DATE OF ADMISSION: 05/29/2019 DATE OF DISCHARGE: 06/07/2019 DISCHARGE DIAGNOSES: 1. Acute hypoxic respiratory failure from pneumonia versus chronic obstructive pulmonary disease exacerbation versus mild congestive heart failure, acute on chronic, both systolic and diastolic exacerbation. 2. Sepsis secondary to pneumonia. 3. Influenza type A positive. 4. 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 5. Constipation. 6. Peripheral arterial disease. 7. Lower extremity swelling. 8. Hypertension. 9. Coronary artery disease, status post coronary artery bypass grafting. DISCHARGE MEDICATIONS: 1. Augmentin 1 tablet twice a day for 14 days. 2. Prednisone 40 mg daily for 7 days. 3. Albuterol inhaler every 6 hours as needed. 4. Maalox as needed. 5. Aspirin 81 mg daily. 6. Coreg 3.125 mg daily. 7. Lasix 40 mg daily. 8. Gabapentin 600 mg three times a day. 9. Guaifenesin 10 mL every 4 hours as needed. 10. Lisinopril 5 mg daily. 11. Oxymetazoline 2 to 3 sprays in each nares twice a day. 12. Potassium chloride 10 mEq daily. 13. Pramipexole two tablets twice a day. PHYSICAL EXAMINATION: VITAL SIGNS: On the day of discharge, temperature 98.1, pulse 80, blood pressure is 131/60, saturating 95% on room air. GENERAL: The patient is nontoxic appearing. He states this morning he felt slightly better than the last few days. However, he still has some ongoing discomfort in his chest. After taking all his medications in the morning, he feels better for the next 4 to 5 hours and then started to have some chest discomfort specifically shortness of breath, crackles, ongoing cough. He is ambulating without any desats. He was qualified for home oxygen and that has been arranged. CARDIOVASCULAR: Regular rate and rhythm without murmurs, rubs, or gallops. LUNGS: With anterior auscultation, have some crackles in the mid lung zones. I did not appreciate any significant wheezing. ABDOMEN: Soft, nontender, nondistended. Good bowel sounds. HOSPITAL COURSE: Please review the H and P and daily progress notes for more details. Briefly, this is a 78-year-old male with a significant lung dysfunction at baseline including COPD and 24-wesa-seko smoking, but quit 20 years ago, presented with severe shortness of breath. He was recently admitted with a COPD exacerbation on May 22 and discharged from the hospital after being treated for cellulitis, COPD and CHF exacerbation with Augmentin as well as doxycycline, prednisone, and Lasix. At home, he has a home healthcare provider who comes and helps him 5 days a week. However, he felt that he did not get better after being discharged and he came back on May 28 with persistent runny nose, chills, but no body ache. He was tested influenza A positive. He was given Tamiflu and started on vancomycin as well as cefepime. His chest x-ray showed some chronic changes. Blood cultures were negative. He was on high-dose prednisone that tapered to 40 mg daily. We also checked CT angiogram which was negative for PE. Lower extremity Dopplers were negative for DVT. The CT chest showed pleural plaques thickening consistent with history of asbestos exposure. The patient also stated that he is exposed to several different type of chemicals during his occupational life. Echo showed no wall motion abnormalities. The patient also has chronic venous insufficiency in addition to CHF exacerbating his lower extremity edema. Again, echo showed normal EF without any wall motion abnormalities. Dopplers were negative for DVT. The patient's respiratory condition was quite labile in terms of his daily activities. I did consult Dr. Navarrete, wall crane operator. No active aggressive intervention other than supportive care that we provided including antibiotic steroid as well as bronchodilators and cough suppressants. He is also qualified for home oxygen that we have arranged, and to be pursued after he completed his rehab. His home healthcare provider was sick, so the patient is transferred to the rehab today. Once he is discharged from the rehab, they should be able to arrange for his home oxygen, which already have been approved. DISCHARGE INSTRUCTIONS: Activity as tolerated. Regular diet. Follow up with primary care physician in one week. TIME SPENT: Discharge time took over 30 minutes. Job ID: [id number]
== END 2019-06-07 13:51 | DRG 871 ==
LOC: ERS 07:46 → T4-A 13:40
PROVIDERS: ADMIT Internal Medicine; ATTEND Internal Medicine
DX: A41.9 Sepsis, unspecified organism (principal); J10.08 Influenza due to other identified influenza virus with other specified pneumonia; J96.01 Acute respiratory failure with hypoxia; I50.43 Acute on chronic combined systolic (congestive) and diastolic (congestive) heart failure; J44.0 Chronic obstructive pulmonary disease with (acute) lower respiratory infection; J44.1 Chronic obstructive pulmonary disease with (acute) exacerbation; E87.1 Hypo-osmolality and hyponatremia; K59.00 Constipation, unspecified; I11.0 Hypertensive heart disease with heart failure; I25.10 Atherosclerotic heart disease of native coronary artery without angina pectoris; I73.9 Peripheral vascular disease, unspecified; Z87.891 Personal history of nicotine dependence; I25.2 Old myocardial infarction; G25.81 Restless legs syndrome; Z80.8 Family history of malignant neoplasm of other organs or systems; Z77.090 Contact with and (suspected) exposure to asbestos; J92.0 Pleural plaque with presence of asbestos
CPT/HCPCS: 36415; 36416; 71045; 71250; 74018; 80048; 80202; 81001; 82553; 83605; 83880; 84484; 85025; 85027; 87070; 87205; 93306; 93923; 93970; 94640; J0692; J1650; J1940; J2270; J2405; J2930; J3370; J3490; J7512; J7620

== ENCOUNTER 2019-12-13 10:33 | Emergency (ER) | payer MEDICARE, MEDICAID ==
[2019-12-13] MEDS ORDERED: Sodium Chloride 0.9% 100 ML ONE (11:32)
[2019-12-13] MEDS ORDERED: Cefepime 2 GM VIAL ONE (11:32)
[2019-12-13 12:03] LABS: ALT (SGPT) 19 U/L (8-55); AST (SGOT) 41 U/L (5-34); Albumin 4.3 g/dL (3.4-4.8); Alkaline Phosphatase 96 U/L (40-110); Anion Gap 17 mmol/L (10-20); BUN (Urea Nitrogen) 16 mg/dL (8.4-25.7); Bilirubin, Total 0.8 mg/dL (0.2-1.2); Calc. Creatinine Clearance 0 mL/min (70-130); Calcium 9.6 mg/dL (7.8-10.44); Carbon Dioxide 25 mmol/L (23-31); Chloride 91 mmol/L (98-107); Estimated GFR-MDRD 58; Globulin 3.2 g/dL (2.4-3.5); Glucose 95 mg/dL (83-110); Potassium 5.1 mmol/L (3.5-5.1); Protein, Total 7.5 g/dL (5.8-8.1); Sodium 128 mmol/L (136-145)
[2019-12-13] MEDS ORDERED: methylPREDNISolone Sod Succ/PF 125 MG/2 ML VIAL ONE (12:05)
--- NOTE | 2019-12-13 12:45 | RAD ---
EXAM: Single view of the chest HISTORY: Dyspnea COMPARISON: 12/13/2019 FINDINGS: Single view of the chest shows a normal sized cardiomediastinal silhouette. The patient is status post sternotomy. Lung markings appear to extend all the way to the right apex and the abnormality on the prior exam may have been secondary to exposure. There is left basilar atelectasis or scarring. There is no evidence of consolidation, mass, or pleural effusion. Degenerative changes are seen in the spine and shoulders. IMPRESSION: No evidence of acute cardiopulmonary disease
[2019-12-13 13:33] LABS: #Eosinphils 1.7 thou/uL (0.0-0.7); #Lymphocytes 1.2 thou/uL (1.20-3.40); #Monocytes 0.8 thou/uL (0.11-0.59); #Neutrophils 5.6 thou/uL (1.40-6.50); %Basophils 0.5 % (0.0-1.0); %Eosinophils 18.4 % (0.0-10.0); %Lymphocytes 12.9 % (21.0-51.0); %Monocytes 8.8 % (0.0-10.0); %Neutrophils 59.5 % (42.0-75.0); Mean Corpuscular HGB CONC 33.2 g/dL (32.0-36.0); Mean Corpuscular Hemoglobin 31.3 pg (27.0-31.0); Mean Corpuscular Volume 94.5 fL (78.0-98.0); Mean Platelet Volume 8.6 fL (7.4-10.4); Platelet Count 192 thou/uL (130-400); RBC Distribution Width 13.8 % (11.5-14.5); Red Blood Cell (RBC) Count 4.79 mill/uL (4.70-6.10); White Blood Cell (WBC) Count 9.4 thou/uL (4.8-10.8)
[2019-12-13] MEDS ORDERED: Acetaminophen 500 MG TAB ONE (13:36)
[2019-12-13] MEDS ORDERED: Gabapentin 300 MG CAP PO SCH (14:00)
--- NOTE | 2019-12-13 14:48 | RAD ---
TWO VIEW CHEST: 12/13/19 INDICATION: Dyspnea. COMPARISON: 09/20/19. Lung apices are poorly evaluated due to overexposure. No definite lung markings seen in the right ape x and therefore, I cannot exclude pneumothorax. There is stranding in the lung bases probably represe nting atelectasis. No definite infiltrate. Heart and mediastinum unremarkable. IMPRESSION: Suboptimal exam. Overexposure limits evaluation of the apices. The right lung apex shows no lung tee ings but this may be due to exposure. Repeat upright PA chest is recommended with better exposure. Fi ndings discussed with Dr. Carvalho. POS: [id number]
--- NOTE | 2019-12-13 15:41 | ULT ---
EXAM: Bilateral lower extremity venous Doppler HISTORY: bilateral lower extremity edema and pain FINDINGS: Grayscale, color-flow, Doppler evaluation, spectral analysis of the bilateral lower extremity venous structures is performed with 2-D imaging. The bilateral common femoral, superficial femoral, popliteal, posterior tibial, proximal greater saphenous and profunda femoral veins are imaged. The distal left lower extremity superficial femoral vein is not utilized on grayscale imaging which l imits evaluation for DVT at this level. There is otherwise normal luminal compressibility, flow, and augmentation in the visualized deep venous structures of the bilateral lower extremities. Subcutaneous edema is seen involving the bilateral lower extremities greatest at the level of the dis lupe left calf. IMPRESSION: Nonvisualization of the distal left lower extremity superficial femoral vein. DVT at this level could not be excluded given nonvisualization of this vein. There is otherwise no evidence of a deep vein thrombosis in the visualized deep venous structures bilateral lower extremities.
== END 2019-12-13 16:03 | disposition home or self-care (01) ==
LOC: ERS 10:33
DX: L30.9 Dermatitis, unspecified (principal); R60.9 Edema, unspecified; J44.9 Chronic obstructive pulmonary disease, unspecified; I50.9 Heart failure, unspecified; Z79.82 Long term (current) use of aspirin; Z79.51 Long term (current) use of inhaled steroids; Z79.899 Other long term (current) drug therapy
CPT/HCPCS: 36415; 71045; 71046; 80053; 83605; 83880; 84484; 85025; 87040; 93005; 93970; 94760; J0692; J2930; J3370; J3490; J7030

== ENCOUNTER 2020-03-04 09:51 | Inpatient (IN) | payer MEDICARE, MEDICAID ==
[2020-03-04] MEDS ORDERED: Cefepime 2 GM VIAL ONE (10:10)
[2020-03-04 11:06] LABS: #Basophils 0.1 thou/uL (0.0-0.2); #Eosinphils 0.4 thou/uL (0.0-0.7); #Lymphocytes 1.3 thou/uL (1.20-3.40); #Monocytes 0.8 thou/uL (0.11-0.59); #Neutrophils 5.6 thou/uL (1.40-6.50); %Basophils 0.8 % (0.0-1.0); %Eosinophils 4.6 % (0.0-10.0); %Lymphocytes 16.2 % (21.0-51.0); %Monocytes 10.1 % (0.0-10.0); %Neutrophils 68.3 % (42.0-75.0); Hemoglobin 13.8 g/dL (14.0-18.0); Mean Corpuscular HGB CONC 31.9 g/dL (32.0-36.0); Mean Corpuscular Hemoglobin 30.3 pg (27.0-31.0); Mean Platelet Volume 7.5 fL (7.4-10.4); Platelet Count 211 thou/uL (130-400); RBC Distribution Width 14.1 % (11.5-14.5); Red Blood Cell (RBC) Count 4.55 mill/uL (4.70-6.10); White Blood Cell (WBC) Count 8.2 thou/uL (4.8-10.8)
[2020-03-04 11:25] LABS: ALT (SGPT) 28 U/L (8-55); AST (SGOT) 40 U/L (5-34); Albumin 4.4 g/dL (3.4-4.8); Alkaline Phosphatase 90 U/L (40-110); Anion Gap 16 mmol/L (10-20); BUN (Urea Nitrogen) 35 mg/dL (8.4-25.7); Bilirubin, Total 0.5 mg/dL (0.2-1.2); Calc. Creatinine Clearance 0 mL/min (70-130); Calcium 9.6 mg/dL (7.8-10.44); Carbon Dioxide 24 mmol/L (23-31); Chloride 90 mmol/L (98-107); Glucose 81 mg/dL (83-110); Potassium 5.8 mmol/L (3.5-5.1); Protein, Total 7.4 g/dL (5.8-8.1); Sodium 124 mmol/L (136-145)
--- NOTE | 2020-03-04 13:34 | PDOC.HHP ---
Hospitalist HPI - History of Present Illness Bilateral lower extremity swelling and redness History of Present Illness: History of present illness Patient came to emergency room from home with a complaint of bilateral lower extremity swelling and redness, patient also has groin pain on both side predominantly on the left side, he has significant pain in his both lower extremity, he has no fever at home, patient has worsening of erythema and redness for last 3 to 4 days, patient was given oral antibiotic therapy without any relief, he also reported that he had blisters which broken, patient has weeping of fluid from below both lower extremity, in the emergency room patient was afebrile, hemodynamically stable, he has underlying history of COPD and he is using oxygen. Patient reports that because of lower extremity swelling and pain and edema he was not able to walk, he denies any tingling numbness or motor weakness of either extremity, he denies any nausea vomiting diarrhea, In the emergency room patient is found with hyponatremia, hyperkalemia, acute kidney injury, ED Course: Patient is given cefepime and vancomycin in the emergency room VITAL SIGNS WedMar 04, 2020 09:54 JOANNE Onofre Kelsey BP: 139/81, Pulse: 78, Resp: 18, Temp: 98.5 (Oral), Pain: 10, Time: 03/04/2020 09:54. VITAL SIGNS WedMar 04, 2020 10:01 JOANNE Onofre Kelsey O2 sat: 98 on (2L Oxygen), Time: 03/04/2020 10:01. VITAL SIGNS WedMar 04, 2020 10:53 JOANNE Onofre Kelsey BP: 103/63, MAP: 76, Pulse: 70, Resp: 20 (Non-Labored), Pain: 8, O2 sat: 95 on (3L Oxygen), Time: 03/04/2020 10:53. VITAL SIGNS WedMar 04, 2020 11:48 JOANNE Onofre Kelsey BP: 116/61, MAP: 79, Pulse: 67, Resp: 20 (Non-Labored), Pain: 7, O2 sat: 95 on (2L Oxygen), Time: 03/04/2020 11:48. VITAL SIGNS WedMar 04, 2020 13:08 JOANNE Onofre Kelsey BP: 147/115, Pulse: 85, Resp: 16 (Non-Labored), Pain: 7, O2 sat: 94 on (2L Oxygen), Time: 03/04/2020 13:08. VITAL SIGNS WedMar 04, 2020 13:19 JOANNE Onofre Kelsey Pulse: 91, Resp: 22, O2 sat: 95 on (2L Oxygen), Time: 03/04/2020 13:19. Hospitalist ROS - Review of Systems Constitutional: reports: weakness, malaise. denies: fever, chills, sweats, other Eyes: denies: pain, vision change, conjunctivae inflammation, eyelid inflammation, redness, other ENT: denies: ear pain, ear discharge, nose pain, nose discharge, nose congestion, mouth pain, mouth swelling, throat pain, throat swelling, other Respiratory: denies: cough, dry, shortness of breath, hemoptysis, SOB with excertion, pleuritic pain, sputum, wheezing, other Cardiovascular: reports: edema. denies: chest pain, palpitations, orthopnea, paroxysmal noc. dyspnea, light headedness, other Gastrointestinal: denies: nausea, vomiting, abdominal pain, diarrhea, constipation, melena, hematochezia, other Genitourinary: denies: dysuria, frequency, incontinence, hematuria, retention, other Musculoskeletal: reports: leg pain, foot pain. denies: neck pain, shoulder p ain, arm pain, back pain, hand pain, other Skin: denies: rash, lesions, myranda, bruising, other - Medication Medications: Allergies tramadol Allergy (Verified 05/20/19 17:37) Medication Instructions Recorded Confirmed Type Carvedilol [Coreg] 3.125 mg PO BID #0 tab 05/09/14 05/29/19 Rx Acetaminophen ER (8hr) [TYLENOL ER 650 mg PO Q4H PRN 05/05/16 05/29/19 History (8hr ARTHRITIS PAIN)] Aluminum & Magnesium Hydroxide 10 ml PO PCHS PRN 05/05/16 05/29/19 History [Maalox] Gabapentin 1 tab PO TID PRN 05/05/16 05/29/19 History Guaifen/Dextromethorphan/PE 10 ml PO Q4HR PRN 05/05/16 05/29/19 History [Tussin CF Cough & Cold] Lisinopril 10 mg PO DAILY 05/05/16 05/29/19 History Oxymetazoline HCl [Nose Boyce] 2 - 3 sprays EA NARE BID PRN 05/05/16 05/29/19 History Aspirin [Aspirin EC] 81 mg PO DAILY 05/20/19 05/29/19 History Potassium Chloride 10 meq PO DAILY 05/20/19 05/29/19 History Pramipexole Di-HCl [Pramipexole 2 tab PO BID 05/20/19 05/29/19 History Dihydrochloride] Albuterol Sulfate [Albuterol 8.5 gm IH [id number] #1 hfa.aer.ad 05/23/19 05/29/19 Rx Sulfate Hfa] Furosemide 40 mg PO DAILY #60 tablet 05/23/19 05/29/19 Rx Amoxicillin/Potassium Clav 1 each PO BID #14 tablet 06/07/19 Rx [Augmentin 875-125 Tablet] predniSONE 40 mg PO QAM- 7 Days #7 tab 06/07/19 Rx Resuscitation Status - Order Detail: 03/04/20 13:42 Resuscitation Status Routine Resuscitation Status: FULL: Full Resuscitation Hospitalist History - Past Medical History Psych: reports: Addictions (Was an alcoholic before quitting 30 years ago.) Musculoskeletal: reports: Chronic low back pain Other Medical History: Coronary artery disease Hypertension COPD Chronic respiratory failure with hypoxia Chronic low back pain, Chronic diastolic heart failure - Past Surgical History Past Surgical History: reports: CABG (6 years ago), Hernia Repair Other Surgical History: CABG, Epidural steroid injection, Back surgery, - Family History Other Family History: No strong family history of premature coronary artery disease stroke or cancer - Social History Alcohol: reports: None (Former heavy drinker, quit 30 years ago.) Drugs: reports: none Other Social History: Patient lives at home by himself, he has home health nurse, he drinks alcohol so cially, he smokes cigarettes, he is former drug abuser, he has caregiver 5 days a week - Exam General Appearance: NAD, awake alert, ill appearing Eye: PERRL, anicteric sclera ENT: normocephalic atraumatic, no oropharyngeal lesions Neck: supple, symmetric, no JVD, no thyromegaly Heart: RRR, no murmur, no gallops, no rubs Respiratory: no wheezes, no rales, no ronchi Respiratory - other findings: Bilateral air entry reduced, Gastrointestinal: soft, non-tender, non-distended, normal bowel sounds Gastrointestinal - other findings: Obesity noted, umbilical hernia noted Extremities: 2+ LE edema Extremities - other findings: Bilateral lower extremity erythema and swelling, broken blister, cold appea Skin: normal turgor, no lesions Neurological: no focal deficits Musculoskeletal: normal tone, normal strength, no muscle wasting Psychiatric: normal affect, normal behavior, A&O x 3 Hospitalist Results - Labs Result Diagrams: 03/04/20 10:56 03/04/20 10:56 Lab results: WBC 8.2 thou/uL (4.8-10.8) 03/04/20 10:56 Hgb 13.8 g/dL (14.0-18.0) L 03/04/20 10:56 Hct 43.3 % (42.0-52.0) 03/04/20 10:56 MCV 95.0 fL (78.0-98.0) 03/04/20 10:56 Plt Count 211 thou/uL (130-400) 03/04/20 10:56 Neutrophils % 68.3 % (42.0-75.0) 03/04/20 10:56 Sodium 124 mmol/L (136-145) L 03/04/20 10:56 Potassium 5.8 mmol/L (3.5-5.1) H 03/04/20 10:56 Chloride 90 mmol/L (98-107) L 03/04/20 10:56 Carbon Dioxide 24 mmol/L (23-31) 03/04/20 10:56 BUN 35 mg/dL (8.4-25.7) H 03/04/20 10:56 Creatinine 1.96 mg/dL (0.7-1.3) H 03/04/20 10:56 Glucose 81 mg/dL (83-110) L 03/04/20 10:56 Lactic Acid 1.2 mmol/L (0.5-2.2) 03/04/20 10:56 Calcium 9.6 mg/dL (7.8-10.44) 03/04/20 10:56 Total Bilirubin 0.5 mg/dL (0.2-1.2) 03/04/20 10:56 AST 40 U/L (5-34) H 03/04/20 10:56 ALT 28 U/L (8-55) 03/04/20 10:56 Alkaline Phosphatase 90 U/L (40-110) 03/04/20 10:56 Troponin I 0.012 ng/mL (< 0.028) 03/04/20 10:56 B-Natriuretic Peptide 95.3 pg/mL (0-100) 03/04/20 10:56 Serum Total Protein 7.4 g/dL (5.8-8.1) 03/04/20 10:56 Albumin 4.4 g/dL (3.4-4.8) 03/04/20 10:56 Hospitalist H&P A/P - Problem (1) Cellulitis Code(s): L03.90 - CELLULITIS, UNSPECIFIED Status: Chronic Qualifiers: Site of cellulitis: extremity Site of cellulitis of extremity: lower extremity Laterality: unspecified laterality Qualified Code(s): L03.119 - Cellulitis of unspecified part of limb (2) Hyponatremia Code(s): E87.1 - HYPO-OSMOLALITY AND HYPONATREMIA Status: Acute (3) Hyperkalemia Code(s): E87.5 - HYPERKALEMIA Status: Acute (4) Acute kidney failure Status: Acute (5) Obesity (BMI 30.0-34.9) Code(s): E66.9 - OBESITY, UNSPECIFIED Status: Chronic (6) Chronic respiratory failure with hypoxia, on home O2 therapy Code(s): J96.11 - CHRONIC RESPIRATORY FAILURE WITH HYPOXIA; Z99.81 - DEPENDENCE ON SUPPLEMENTAL OXYGEN Status: Chronic (7) COPD (chronic obstructive pulmonary disease) Status: Chronic Qualifiers: COPD type: chronic bronchitis Chronic bronchitis type: unspecified Qualified Code(s): J42 - Unspecified chronic bronchitis (8) Chronic back pain Code(s): M54.9 - DORSALGIA, UNSPECIFIED; G89.29 - OTHER CHRONIC PAIN Status: Chronic Qualifiers: Back pain location: low back pain (9) CAD (coronary artery disease) Code(s): I25.10 - ATHSCL HEART DISEASE OF [place] CORONARY ARTERY W/O ANG PCTRS Status: Resolved Qualifiers: Coronary Disease-Associated Artery/Lesion type: bypass graft [place] vs. transplanted heart: [place] heart Associated angina: without angina Qualified Code(s): I25.810 - Atherosclerosis of coronary artery bypass graft(s) without angina pectoris (10) Dyslipidemia Code(s): E78.5 - HYPERLIPIDEMIA, UNSPECIFIED Status: Chronic (11) HTN (hypertension) Code(s): I10 - ESSENTIAL (PRIMARY) HYPERTENSION Status: Chronic Qualifiers: Hypertension type: essential hypertension Qualified Code(s): I10 - Essential (primary) hypertension - Plan Plan: Regarding cellulitis bilateral lower extremity, suspecting venous insufficiency, arterial insufficiency years old needs to be ruled out, most likely related with his ongoing COPD, he has peripheral cyanosis, he has cold appearing feet, will obtain ultrasound lower extremity to rule out DVT and will also obtain arterial Doppler to rule out arterial insufficiency, will check lactic acid, will continue with empiric broad-spectrum antibiotic coverage with cefepime and vancomycin to cover gram-negative mark and gram-positive, will follow up on culture result, advised to keep both lower extremity elevated, pain control as tolerated, patient will need wound care over both lower extremity Regarding acute kidney failure and abnormal electrolytes, will obtain renal ultrasound and consult nephrology, will give him Kayexalate one-time dose for hyperkalemia, will try to avoid IV fluid because of his significant pitting edema, and he has underlying chronic diastolic heart failure, will continue with sodium bicarbonate 325 mg p.o. 3 times daily, will avoid nephrotoxins and monitor renal function His COPD is end-stage, will continue DuoNeb therapy, Pulmicort nebulization, oxygen to keep saturation above 92%, Other medical problem including hypertension, coronary artery disease, dyslipidemia, will resume selected home medication after verification.
[2020-03-04] MEDS ORDERED: Senokot S 8.6-50 MG TAB PO PRN (15:20)
[2020-03-04] MEDS ORDERED: Calcium Carbonate 500 MG ChewTAB PO PRN (15:20)
[2020-03-04] MEDS ORDERED: Bisacodyl 10 MG SUPP PR PRN (15:20)
[2020-03-04] MEDS ORDERED: Loperamide HCl 2 MG CAP PO PRN (15:20)
[2020-03-04] MEDS ORDERED: Ondansetron PF 4 MG/2 ML Vial IVP PRN (15:20)
[2020-03-04] MEDS ORDERED: Acetaminophen 325 MG TAB PO PRN (15:20)
[2020-03-04] MEDS ORDERED: Ondansetron ODT 4 MG TAB PO PRN (15:20)
--- NOTE | 2020-03-04 17:35 | ULT ---
EXAM: Bilateral lower extremity venous ultrasound HISTORY: Bilateral lower extremity pain and edema COMPARISON: None TECHNIQUE: Multiplanar grayscale and color Doppler images were obtained in a bilateral lower extremit y venous ultrasound. Spectral analysis of the Doppler waveforms were performed. FINDINGS: This exam is limited secondary to patient's body habitus and inability to change positions. The bilateral common femoral vein, profunda femoral veins, superficial femoral veins, and popliteal v eins are normal in appearance without visible thrombus. These vessels demonstrate normal compression, flow, and augmentation. The bilateral posterior tibial veins and greater saphenous veins are patent without evidence of throm bus. IMPRESSION: No evidence of DVT.
[2020-03-04 17:38] LABS: Bacteria/HPF None Seen HPF (None Seen); Bilirubin Negative (Negative); Blood, Urine Negative (Negative); Clarity Clear (Clear); Glucose, Urine (Dipstick) Normal (Negative); Ketone, Urine Negative (Negative); Leukocyte Negative Leu/uL (Negative); Nitrite Negative (Negative); Protein, Urine (Dipstick) Negative (Neg-Trace); RBC/HPF None Seen HPF (0-3); Specific Gravity, Urine 1.019 (1.002-1.036); Squamous Epithelial None Seen HPF (0-3); Urobilinogen Normal mg/dL (Less than 2); WBC/HPF 0-3 HPF (0-3); pH, Urine 5.5 (5.0-9.0)
--- NOTE | 2020-03-04 17:38 | ULT ---
US Renal Bilateral STANDARD: 03/04/2020 4:00 PM CLINICAL HISTORY: Acute kidney injury. STUDY: Renal ultrasound COMPARISON: CT chest 05/31/2019 FINDINGS: Right kidney: Echogenicity: Increased. Masses/cysts: None. Hydronephrosis: None. Calcifications: None. Length: 11.0 cm Left kidney: Echogenicity: Increased. Masses/cysts: 3.7 cm cyst Hydronephrosis: None. Calcifications: None. Length: 10.6 cm Limited visualization of the urinary bladder is unremarkable. IMPRESSION: 1. Left renal cyst 2. Increased echogenicity of the kidneys may be secondary to chronic medical renal disease.
[2020-03-04 17:41] LABS: Urine Culture Reflex No No
[2020-03-04 17:55] LABS: Creatinine, Urine 102.15 mg/dL (63-166); Sodium, Urine Less than 20 mmol/L (Not Available); Urea Nitrogen, Random Urine 639 mg/dl
[2020-03-04] MEDS: Budesonide 0.5 MG/2 ML NEB NEB SCH (18:45)
[2020-03-04 19:34] LABS: Anion Gap 17 mmol/L (10-20); BUN (Urea Nitrogen) 33 mg/dL (8.4-25.7); Calc. Creatinine Clearance 52 mL/min (70-130); Calcium 9.2 mg/dL (7.8-10.44); Carbon Dioxide 23 mmol/L (23-31); Chloride 92 mmol/L (98-107); Glucose 75 mg/dL (83-110); Sodium 125 mmol/L (136-145)
[2020-03-04] MEDS ORDERED: Calcium Gluconate 100 MG/ML 10 ML IVPB SCH (20:15)
[2020-03-04] MEDS ORDERED: Dextrose 10% in Water 500 ML IV SCH ×2 (20:30→20:45)
[2020-03-04] MEDS ORDERED: Insulin Regular 300 UNITS/3 ML VIAL IVP SCH (20:30)
[2020-03-04] MEDS ORDERED: Dextrose 5% in Water 1,000 ML IV PRN (20:45)
[2020-03-04] MEDS ORDERED: Dextrose 50% Abboject 50 ML SYRINGE IVP PRN (20:45)
[2020-03-04] MEDS ORDERED: Sodium Bicarbonate 150 MEQ in Dextrose 5% in Water 1,000 ML IV SCH (21:00)
--- NOTE | 2020-03-04 21:32 | ULT ---
EXAM: Bilateral lower extremity arterial ultrasound HISTORY: Cold feet and erythema COMPARISON: None TECHNIQUE: Multiplanar grayscale and color Doppler images were obtained and a bilateral lower extrem ity arterial ultrasound. Spectral analysis of the Doppler waveforms were performed. FINDINGS: This exam is limited secondary to the patient's body habitus. No significant calcified plaq ue is seen in bilateral lower extremity. Right lower extremity: Common femoral artery: Biphasic Profundofemoral artery: Monophasic Superficial femoral artery: Monophasic Popliteal artery: Monophasic Anterior tibial artery: Monophasic Posterior tibial artery: Monophasic Dorsalis pedis artery: Monophasic No significant increase in velocity is seen from a more proximal to a distal segment to suggest an ar ea of focal atherosclerotic disease. Left lower extremity: Common femoral artery: Biphasic Profundofemoral artery: Monophasic Superficial femoral artery: Biphasic Popliteal artery: Monophasic Anterior tibial artery: Monophasic Posterior tibial artery: Monophasic Dorsalis pedis artery: Monophasic There is an increase in velocity from the proximal to the mid portion of the right superficial femora l artery which could suggest an area of focal atherosclerotic disease in this location. IMPRESSION: 1. Bilateral abnormal waveforms suggest more proximal atherosclerotic disease 2. There may be an area of focal stenosis in the left superficial femoral artery.
[2020-03-04] MEDS: Cefepime 1 GM in Sodium Chloride 0.9% 100 ML IVPB SCH (21:40)
[2020-03-04] MEDS: Heparin 5,000 UNITS/ML VIAL SC SCH (22:01)
--- NOTE | 2020-03-04 23:08 | CON ---
DATE OF CONSULTATION: 03/04/2020 SERVICE: Nephrology. REASON FOR CONSULTATION: Hyperkalemia and acute kidney injury. REQUESTING PHYSICIAN: Dr. Ceasar Johnson. CHIEF COMPLAINT: Worsening leg swelling and redness. HISTORY OF PRESENT ILLNESS: A 79-year-old male with known history of COPD, chronic diastolic heart failure, chronic kidney disease and others, admitted due to worsening leg swelling and erythema as well as generalized weakness and decreased ambulation. Impression of cellulitis was made and patient was started on broad-spectrum antibiotics. The patient however was noted to have a hyperkalemia of 5.5 on presentation, as well as acute kidney injury with creatinine of 1.96 on presentation. Repeat BUN showed creatinine of 1.95 and potassium of 7.0. The patient also was noted to have hyponatremia. The patient reported a chronic bilateral leg swelling which started getting worse in the last 5 days associated with pain and erythema. The patient also is on Lasix as well as potassium supplementation and reported decreased urine output in the last several days. He denied fever. PAST MEDICAL HISTORY: 1. Coronary artery disease. 2. Status post CABG. 3. COPD. 4. Hypertension. 5. Dyslipidemia. 6. Restless legs syndrome. 7. Chronic back pain. 8. Chronic bilateral leg edema. PAST SURGICAL HISTORY: 1. Coronary artery bypass graft. 2. Circumcision. 3. Bilateral hernia repair. FAMILY HISTORY: Significant for esophageal and prostate cancer in father and atherosclerosis in mother. SOCIAL HISTORY: The patient is a former smoker, who quit smoking about 20 years ago after about 20 pack years. He lives alone. Denied alcohol or recreational drug use. ALLERGIES: REPORTED ALLERGIC REACTION TO TRAMADOL. MEDICATIONS: Prior to hospital, medications are as follows. 1. Aspirin 81 mg p.o. daily. 2. Doxycycline 100 mg p.o. t.i.d. 3. Furosemide 40 mg p.o. b.i.d. 4. Lisinopril 10 mg daily. 5. Potassium chloride 10 mEq daily. 6. Prednisone 40 mg p.o. daily. 7. Spiriva 18 mcg inhalation daily. 8. Acetaminophen p.r.n. 9. Carvedilol 3.125 mg p.o. b.i.d. REVIEW OF SYSTEMS: A 12-point review of system performed was negative other than pertinent positives and negatives included in the history of present illness. PHYSICAL EXAMINATION: VITAL SIGNS: Temperature 98.4, pulse 84, respiratory rate 16, SpO2 of 97% on 3 L nasal cannula. Blood pressure is 154/83. GENERAL: Obese male, in no obvious distress. Afebrile, acyanotic. Fatigued and in no distress. HEENT: Normocephalic, atraumatic. Oral mucosa is moist. NECK: Supple with no obvious JVD. CARDIOVASCULAR: Regular rhythm and rate with normal heart sounds 1 and 2. No obvious murmur was appreciated. RESPIRATORY: Fair air entry bilaterally with some transmitted breath sounds, but no obvious crackle or rhonchi or use of accessory muscles. GI: Obese, soft, nontender with normal bowel sounds. EXTREMITIES: [id number] bilateral leg edema with chronic venous stasis changes noted. Scattered deroofed blisters with crust noted as well. Skin: Erythema, slight erythrasma of both lower extremities noted. EVENT SPECIALIST FOOD DEMONSTRATOR: Conscious and alert, oriented x3 with appropriate mental status. Occasional involuntary movement of both lower and upper extremities especially the right side noted. Asterixis also was noted. The patient moves extremities, but weakly. DIAGNOSTIC DATA: CBC on presentation showed, WBC count of 8.2, hemoglobin of 13.8, MCV of 95.0, platelet of 211. Initial CMP on presentation showed sodium 124, potassium 5.8, chloride 90, CO2 24, BUN 35, creatinine 1.96, glucose 81, calcium 9.6, total bilirubin 0.5, AST 40, ALT 28, alkaline phosphatase 90, total protein 7.4, albumin 4.4. Cardiac markers on presentation showed a troponin of 0.012 and BNP of 95.3. Repeat BMP 9 hours later showed sodium 125, potassium 7.0, chloride 92, CO2 of 23, BUN 33, creatinine 1.95, glucose 95, calcium 9.2. Review of medical record showed that the patient had baseline creatinine ranging from 0.7 to 1.0, but recent baseline seems to be 1.2 to 1.3 with creatinine of 1.22 on December 13, 2019. Renal ultrasound performed earlier today showed left renal cyst as well as increased echogenicity of both kidneys, which is thought to be due to chronic medical renal disease. Right kidney measures 11 cm while left measures 10.6. There was no hydronephrosis noted on both kidneys. Review of medical records showed the patient had normal EF of 55 in May 2019. He however was noted to have a diastolic dysfunction on that same echocardiogram. EKG performed after the patient had hyperkalemia of 7.0, showed normal sinus rhythm with rate of 95. No obvious ST or T-wave changes or abnormality was noted. ASSESSMENT: 1. Hyperkalemia: Due to potassium supplementation and acute kidney injury. Potassium level has gone up from 5.8 on the presentation to 7.0 currently. There is no overt evidence of cardiac toxicity on EKG. 2. Acute kidney injury: Most likely due to diuretic therapy with intravascular contraction. Cardiorenal syndrome is a concern. 3. Acute on chronic diastolic heart failure. 4. Worsening bilateral leg edema. 5. Bilateral cellulitis of both lower extremities. 6. Presumed intravascular contraction with contraction metabolic alkalosis. 7. Hypertension: Control is fair. PLAN: 1. We will treat potassium medically with insulin dextrose as well as calcium gluconate and sodium bicarbonate infusion. We will also start patient on alkali therapy with sodium bicarbonate infusion at 50 cc/h. We will also start the patient on Kayexalate. We will recheck potassium in 4 hours with a view to retreat if indicated. 2. We will also get urinalysis as well as urine electrolytes. 3. We will plan on getting repeat echocardiogram to reassess cardiac function. 4. We will also get repeat renal function in the morning. 5. Antibiotics for cellulitis as per primary attending. 6. The patient is critically ill in view of hyperkalemia with guarded prognosis. We will monitor closely. Critical care time was more than 40 minutes. Further treatment to follow depending on hospital course. Job ID: [id number] [facility]
[2020-03-04 23:38] LABS: Albumin 3.8 g/dL (3.4-4.8); Anion Gap 14 mmol/L (10-20); BUN (Urea Nitrogen) 36 mg/dL (8.4-25.7); BUN/Creatinine Ratio 16.82; Calc. Creatinine Clearance 47 mL/min (70-130); Calcium 9.3 mg/dL (7.8-10.44); Carbon Dioxide 27 mmol/L (23-31); Chloride 93 mmol/L (98-107); Glucose 107 mg/dL (83-110); Magnesium 2.7 mg/dL (1.6-2.6); Phosphorus 4.1 mg/dL (2.3-4.7); Potassium 5.7 mmol/L (3.5-5.1); Sodium 128 mmol/L (136-145)
[2020-03-05 01:22] LABS: SARS-CoV-2 MS2 Positive; SARS-CoV-2 N Gene Negative; SARS-CoV-2 S Gene Negative; SARS-CoV-2 by NAA Not Detected (NotDetected); SARS-CoV-2 orf1ab Negative
[2020-03-05] MEDS ORDERED: Sodium Chloride 0.65% Nasal 44 ML BOT EA NARE PRN (01:36)
[2020-03-05] MEDS ORDERED: HYDROcodone/Acetaminophen 5/325 mg Tablet PO SCH (04:00)
[2020-03-05 04:15] LABS: #Eosinphils 0.2 thou/uL (0.0-0.7); #Lymphocytes 1.2 thou/uL (1.20-3.40); #Monocytes 1.2 thou/uL (0.11-0.59); #Neutrophils 5.9 thou/uL (1.40-6.50); %Basophils 0.4 % (0.0-1.0); %Eosinophils 1.8 % (0.0-10.0); %Lymphocytes 13.6 % (21.0-51.0); %Monocytes 14.6 % (0.0-10.0); %Neutrophils 69.7 % (42.0-75.0); Hemoglobin 12.8 g/dL (14.0-18.0); Mean Corpuscular HGB CONC 33.6 g/dL (32.0-36.0); Mean Corpuscular Hemoglobin 31.9 pg (27.0-31.0); Mean Corpuscular Volume 94.9 fL (78.0-98.0); Mean Platelet Volume 8.1 fL (7.4-10.4); Platelet Count 211 thou/uL (130-400); RBC Distribution Width 14.3 % (11.5-14.5); Red Blood Cell (RBC) Count 4.03 mill/uL (4.70-6.10); White Blood Cell (WBC) Count 8.5 thou/uL (4.8-10.8)
[2020-03-05 06:51] LABS: Albumin 4.1 g/dL (3.4-4.8)
[2020-03-05 06:53] LABS: Calcium 9.4 mg/dL (7.8-10.44); Chloride 90 mmol/L (98-107); Potassium 6.1 mmol/L (3.5-5.1); Sodium 126 mmol/L (136-145)
[2020-03-05 06:54] LABS: Globulin 3.4 g/dL (2.4-3.5); Glucose 76 mg/dL (83-110); Protein, Total 7.5 g/dL (5.8-8.1)
[2020-03-05 06:55] LABS: Anion Gap 16 mmol/L (10-20); Carbon Dioxide 26 mmol/L (23-31)
[2020-03-05 06:57] LABS: Alkaline Phosphatase 75 U/L (40-110); Calc. Creatinine Clearance 51 mL/min (70-130)
[2020-03-05 06:58] LABS: BUN (Urea Nitrogen) 36 mg/dL (8.4-25.7)
[2020-03-05 06:59] LABS: AST (SGOT) 63 U/L (5-34)
[2020-03-05 07:00] LABS: ALT (SGPT) 31 U/L (8-55)
[2020-03-05 07:09] LABS: Bilirubin, Total 1.1 mg/dL (0.2-1.2)
[2020-03-05] MEDS: Budesonide 0.5 MG/2 ML NEB NEB SCH ×2 (07:17→19:17)
[2020-03-05] MEDS: Famotidine 20 MG TAB PO SCH (08:41)
[2020-03-05] MEDS: Saccharomyces boulardii 250 MG CAP PO SCH (08:41)
[2020-03-05] MEDS: Heparin 5,000 UNITS/ML VIAL SC SCH ×2 (08:42→20:36)
[2020-03-05] MEDS ORDERED: Furosemide 100 MG/10 ML VIAL SLOW IVP SCH ×2 (09:20→21:00)
[2020-03-05] MEDS ORDERED: Metolazone 5 MG TAB PO SCH (09:30)
--- NOTE | 2020-03-05 09:48 | PDOC.NEPPN ---
- Subjective Encounter Date: 03/05/20 Subjective: Seen in follow for hyperkalemia and YAZMIN. Complaining of leg pain. Bilateral leg edema persists. - Objective Vital Signs & Weight: Vital Signs (12 hours) Temp Pulse Resp BP Pulse Ox 03/05/20 08:00 97.2 F L 94 17 136/62 92 L 03/05/20 07:18 93 L 03/05/20 07:17 91 20 93 L 03/05/20 07:16 91 20 86 L 03/05/20 03:54 97.9 F 88 22 H 137/60 92 L 03/05/20 03:17 98.1 F 86 22 H 154/80 H 93 L 03/05/20 00:00 88 03/04/20 23:44 82 16 97 Weight Weight 255 lb 11.779 oz Result Diagrams: 03/05/20 03:37 03/05/20 06:21 Additional Labs: Accuchecks 03/04/20 21:38 POC Glucose 87 Nephrology ROS - Medication Medications: Active Medications Generic Name Dose Route Start Last Admin Trade Name Freq PRN Reason Stop Dose Admin Acetaminophen 650 mg 03/04/20 15:20 03/04/20 22:21 Acetaminophen 325 Mg Tab PO 650 mg Q4H PRN Administration Headache/Fever/Mild Pain (1-3) Albuterol/Ipratropium 3 ml 03/04/20 19:00 03/05/20 07:16 Ipratropium/Albuterol Sulfate 3 Ml Neb NEB 3 ml [id number] JAIME Administration Budesonide 0.5 mg 03/04/20 18:30 03/05/20 07:17 Budesonide 0.5 Mg/2 Ml Neb NEB 0.5 mg BID-RT JAIME Administration Famotidine 20 mg 03/05/20 09:00 03/05/20 08:41 Famotidine 20 Mg Tab PO 20 mg DAILY JAIME Administration Heparin Sodium (Porcine) 5,000 units 03/04/20 21:00 03/05/20 08:42 Heparin 5,000 Units/Ml Vial SC 5,000 units Q12HR JAIME Administration Cefepime HCl 1 gm/ Sodium 100 mls @ 200 mls/hr 03/04/20 22:00 03/04/20 21:40 Chloride IVPB 100 mls 1000,2200 JAIME Administration Saccharomyces Boulardii 250 mg 03/05/20 09:00 03/05/20 08:41 Saccharomyces Boulardii 250 Mg Cap PO 250 mg DAILY JAIME Administration Sodium Chloride 0 ml 03/05/20 01:36 03/05/20 01:47 Sodium Chloride 0.65% Nasal 44 Ml Bot EA NARE 2 spr TIDPRN PRN Administration Nasal Congestion Sodium Polystyrene Sulfonate 30 gm 03/05/20 07:57 03/05/20 08:43 Sodium Polystyrene Sulfonate 15 Gm/60 Ml Bot PO 03/05/20 12:00 30 g NOW JAIME Administration - Exam General Appearance: awake alert General - other findings: obese Eye: anicteric sclera ENT: normocephalic atraumatic, moist mucosa Respiratory - other findings: Fair air entry with crackles and transmitted sound Cardiovascular: RRR Gastrointestinal: normal bowel sounds Gastrointestinal - other findings: obese, soft. Extremities - other findings: moderate to severe bilateral leg edema Skin - other findings: erythema of both legs noted Neurological: CN's grossly intact, no focal deficits Nephrology Results - Labs Result Diagrams: 03/05/20 03:37 03/05/20 06:21 Lab results: WBC 8.5 thou/uL (4.8-10.8) 03/05/20 03:37 Hgb 12.8 g/dL (14.0-18.0) L 03/05/20 03:37 Hct 38.2 % (42.0-52.0) L 03/05/20 03:37 MCV 94.9 fL (78.0-98.0) 03/05/20 03:37 Plt Count 211 thou/uL (130-400) 03/05/20 03:37 Neutrophils % 69.7 % (42.0-75.0) 03/05/20 03:37 Sodium 126 mmol/L (136-145) L 03/05/20 06:21 Potassium 6.1 mmol/L (3.5-5.1) H 03/05/20 06:21 Chloride 90 mmol/L (98-107) L 03/05/20 06:21 Carbon Dioxide 26 mmol/L (23-31) 03/05/20 06:21 BUN 36 mg/dL (8.4-25.7) H 03/05/20 06:21 Creatinine 2.00 mg/dL (0.7-1.3) H 03/05/20 06:21 Glucose 76 mg/dL (83-110) L 03/05/20 06:21 Lactic Acid 1.0 mmol/L (0.5-2.2) 03/04/20 23:11 Calcium 9.4 mg/dL (7.8-10.44) 03/05/20 06:21 Total Bilirubin 1.1 mg/dL (0.2-1.2) 03/05/20 06:21 AST 63 U/L (5-34) H 03/05/20 06:21 ALT 31 U/L (8-55) 03/05/20 06:21 Alkaline Phosphatase 75 U/L (40-110) 03/05/20 06:21 Troponin I 0.012 ng/mL (< 0.028) 03/04/20 10:56 B-Natriuretic Peptide 95.3 pg/mL (0-100) 03/04/20 10:56 Serum Total Protein 7.5 g/dL (5.8-8.1) 03/05/20 06:21 Albumin 4.1 g/dL (3.4-4.8) 03/05/20 06:21 Urine Ketones Negative mg/dL (Negative) 03/04/20 17:14 Urine Blood Negative (Negative) 03/04/20 17:14 Urine Nitrite Negative (Negative) 03/04/20 17:14 Ur Leukocyte Esterase Negative Buddy/uL (Negative) 03/04/20 17:14 Urine RBC None Seen HPF (0-3) 03/04/20 17:14 Urine WBC 0-3 HPF (0-3) 03/04/20 17:14 Ur Squamous Epith Cells None Seen HPF (0-3) 03/04/20 17:14 Urine Bacteria None Seen HPF (None Seen) 03/04/20 17:14 Sodium 126 mmol/L (136-145) L 03/05/20 06:21 Potassium 6.1 mmol/L (3.5-5.1) H 03/05/20 06:21 Chloride 90 mmol/L (98-107) L 03/05/20 06:21 Carbon Dioxide 26 mmol/L (23-31) 03/05/20 06:21 Anion Gap 16 mmol/L (10-20) 03/05/20 06:21 BUN 36 mg/dL (8.4-25.7) H 03/05/20 06:21 Creatinine 2.00 mg/dL (0.7-1.3) H 03/05/20 06:21 Glucose 76 mg/dL (83-110) L 03/05/20 06:21 Calcium 9.4 mg/dL (7.8-10.44) 03/05/20 06:21 Phosphorus 4.0 mg/dL (2.3-4.7) 03/04/20 23:11 Phosphorus 4.1 mg/dL (2.3-4.7) 03/04/20 23:11 Magnesium 2.7 mg/dL (1.6-2.6) H 03/04/20 23:11 Albumin 4.1 g/dL (3.4-4.8) 03/05/20 06:21 Nephrology AP PN - Plan ASSESSMENT Hyperkalemia: Due to potassium supplementation and acute kidney injury. Better but still not normal.. Acute kidney injury: Most likely due to diuretic therapy with intravascular contraction and or Cardiorenal syndrome is a concern. Acute on chronic diastolic heart failure. Worsening bilateral leg edema. Bilateral cellulitis of both lower extremities. Hypertension: Control is fair. PAD and atherosclerosis of the lower extremities PLAN Start aggressive diuretic therapy with lasix and metolazone for volume overload and hyperkalemia. give another dose of kayexalate. monitor intke and output. get echo as ordered. liver us contemplated to rule out cirrhosis. continue other treatments.
[2020-03-05] MEDS: Cefepime 1 GM in Sodium Chloride 0.9% 100 ML IVPB SCH ×2 (09:54→21:07)
[2020-03-05 11:32] LABS: Vancomycin, Random 12.3 ug/mL (See Comment)
[2020-03-05] MEDS: Vancomycin 1.5 GRAM/300 ML BAG 1.5 GM in Premix Bag 1 BAG IVPB SCH (12:07)
--- NOTE | 2020-03-05 15:08 | PDOC.HOSPP ---
- Subjective Encounter Date: 03/05/20 Encounter Time: 15:07 Subjective: Mr. Bora Palacios is a 79-year-old who was admitted overnight with bilateral lower extremity swelling complicated by cellulitis. In addition he appears to have acute kidney injury and hyperkalemia. Nephrology evaluation is ongoing. He reports of bilateral lower extremity pain with ambulation. He had venous and arterial Doppler obtained and there was no DVT noted. Arterial duplex was concerning for likely peripheral vascular disease. I would like to get a CT angio with runoff but unfortunately his renal function at this time is suboptimal. We appreciate nephrology ongoing evaluation. His potassium is still elevated. - Objective Vital Signs & Weight: Vital Signs (12 hours) Temp Pulse Resp BP Pulse Ox 03/05/20 12:05 90 20 87 L 03/05/20 11:22 98.0 F 106 H 18 121/65 03/05/20 08:00 97.2 F L 94 17 136/62 92 L 03/05/20 07:18 93 L 03/05/20 07:17 91 20 93 L 03/05/20 07:16 91 20 86 L 03/05/20 03:54 97.9 F 88 22 H 137/60 92 L 03/05/20 03:17 98.1 F 86 22 H 154/80 H 93 L Weight Admit Weight 255 lb 11.779 oz Weight 255 lb 11.779 oz Result Diagrams: 03/05/20 03:37 03/05/20 06:21 Additional Labs: Accuchecks 03/04/20 21:38 POC Glucose 87 Radiology Reviewed by me: Yes EKG Reviewed by me: Yes Hospitalist ROS - Review of Systems Constitutional: reports: weakness Respiratory: reports: shortness of breath, SOB with excertion Gastrointestinal: reports: nausea Neurological: reports: weakness, numbness - Medication Medications: Active Medications Generic Name Dose Route Start Last Admin Trade Name Freq PRN Reason Stop Dose Admin Acetaminophen 650 mg 03/04/20 15:20 03/04/20 22:21 Acetaminophen 325 Mg Tab PO 650 mg Q4H PRN Administration Headache/Fever/Mild Pain (1-3) Albuterol/Ipratropium 3 ml 03/04/20 19:00 03/05/20 12:05 Ipratropium/Albuterol Sulfate 3 Ml Neb NEB 3 ml [id number] JAIME Administration Budesonide 0.5 mg 12/21/20 18:30 03/05/20 07:17 Budesonide 0.5 Mg/2 Ml Neb NEB 0.5 mg BID-RT JAIME Administration Famotidine 20 mg 03/05/20 09:00 03/05/20 08:41 Famotidine 20 Mg Tab PO 20 mg DAILY JAIME Administration Heparin Sodium (Porcine) 5,000 units 03/04/20 21:00 03/05/20 08:42 Heparin 5,000 Units/Ml Vial SC 5,000 units Q12HR JAIME Administration Cefepime HCl 1 gm/ Sodium 100 mls @ 200 mls/hr 03/04/20 22:00 03/05/20 09:54 Chloride IVPB 100 mls 1000,2200 JAIME Administration Vancomycin HCl 1.5 gm/ Device 300 mls @ 200 mls/hr 03/05/20 12:00 03/05/20 12:07 IVPB 300 mls 1200 JAIME Administration Saccharomyces Boulardii 250 mg 03/05/20 09:00 03/05/20 08:41 Saccharomyces Boulardii 250 Mg Cap PO 250 mg DAILY JAIME Administration Sodium Chloride 0 ml 03/05/20 01:36 03/05/20 01:47 Sodium Chloride 0.65% Nasal 44 Ml Bot EA NARE 2 spr TIDPRN PRN Administration Nasal Congestion - Exam Eye: PERRL ENT: normocephalic atraumatic Neck: supple, JVD Heart: RRR Respiratory: CTAB, rales Gastrointestinal: soft, non-tender Extremities: 2+ LE edema Neurological: cranial nerve grossly intact, normal sensation to touch, no focal deficits Musculoskeletal: generalized weakness Psychiatric: normal affect, normal behavior, A&O x 3, oriented to person Hosp A/P - Plan PT/OT, social services aide, incentive spirometry, out of bed/ambulate, DVT proph w/lovenox #1. Acute kidney injury. Patient with acute kidney injury likely secondary to volume depletion. Nephrology has been asked to evaluate him. I will defer to them about ongoing evaluation. 2. Hyperkalemia. Likely secondary to above. Corrective measures has been instituted. 3. Congestive heart failure likely diastolic dysfunction. He has significant bilateral pitting edema up to his thighs. Lasix has been started. We will follow up on echocardiogram report. 4. Peripheral arterial disease. This was seen on arterial duplex of his lower extremity. He will likely need CT angiogram to further evaluate this. We will consider vascular surgery consultation. 5. Cellulitis. He is on appropriate IV antibiotics and will follow up on the culture data information.
--- NOTE | 2020-03-05 18:46 | EKG ---
Test Reason : CP Blood Pressure : / mmHG Vent. Rate : 095 BPM Atrial Rate : 095 BPM P-R Int : 174 ms QRS Dur : 078 ms QT Int : 328 ms P-R-T Axes : 029 037 009 degrees QTc Int : 412 ms Normal sinus rhythm Normal ECG Confirmed by DR. Duncan BAXTER MD ([id number]) on 03/05/2020 6:46:14 PM Referred By: [facility] Confirmed By:DR. Duncan BAXTER MD
[2020-03-05] MEDS ORDERED: HYDROcodone/Acetaminophen 5/325 mg Tablet PO PRN (19:52)
[2020-03-05 20:34] LABS: Anion Gap 16 mmol/L (10-20); BUN (Urea Nitrogen) 39 mg/dL (8.4-25.7); Calc. Creatinine Clearance 56 mL/min (70-130); Calcium 8.9 mg/dL (7.8-10.44); Carbon Dioxide 27 mmol/L (23-31); Chloride 89 mmol/L (98-107); Glucose 103 mg/dL (83-110); Potassium 4.1 mmol/L (3.5-5.1); Sodium 128 mmol/L (136-145)
[2020-03-05] MEDS: Carvedilol 3.125 MG TAB PO SCH (20:37)
[2020-03-05] MEDS: Guaifenesin DM 100-10/5 ML UDCUP PO PRN (20:37)
[2020-03-05] MEDS: Pramipexole Di-HCl 0.25 MG TAB PO SCH (20:37)
[2020-03-05] MEDS: HYDROcodone/Acetaminophen 5/325 mg Tablet PO PRN (20:37)
[2020-03-06] MEDS: Furosemide 100 MG/10 ML VIAL SLOW IVP SCH ×4 (05:59→20:53)
[2020-03-06] MEDS: Budesonide 0.5 MG/2 ML NEB NEB SCH ×2 (07:22→19:23)
[2020-03-06 07:38] LABS: Hemoglobin 12.3 g/dL (14.0-18.0); Mean Corpuscular HGB CONC 33.5 g/dL (32.0-36.0); Mean Corpuscular Hemoglobin 31.3 pg (27.0-31.0); Mean Corpuscular Volume 93.2 fL (78.0-98.0); Mean Platelet Volume 7.4 fL (7.4-10.4); Platelet Count 204 thou/uL (130-400); RBC Distribution Width 13.9 % (11.5-14.5); Red Blood Cell (RBC) Count 3.93 mill/uL (4.70-6.10); White Blood Cell (WBC) Count 7.9 thou/uL (4.8-10.8)
[2020-03-06 07:47] LABS: Anion Gap 16 mmol/L (10-20); BUN (Urea Nitrogen) 34 mg/dL (8.4-25.7); Calc. Creatinine Clearance 74 mL/min (70-130); Carbon Dioxide 27 mmol/L (23-31); Chloride 88 mmol/L (98-107); Glucose 82 mg/dL (83-110); Potassium 4.1 mmol/L (3.5-5.1); Sodium 127 mmol/L (136-145)
[2020-03-06] MEDS: Metolazone 5 MG TAB PO SCH (08:10)
[2020-03-06] MEDS: Saccharomyces boulardii 250 MG CAP PO SCH (08:10)
[2020-03-06] MEDS: predniSONE 20 MG TAB PO SCH (08:10)
[2020-03-06] MEDS: Aspirin 81 mg Enteric Coated Tablet PO SCH (08:10)
[2020-03-06] MEDS: Famotidine 20 MG TAB PO SCH (08:10)
[2020-03-06] MEDS: Carvedilol 3.125 MG TAB PO SCH ×2 (08:10→20:53)
[2020-03-06] MEDS: Heparin 5,000 UNITS/ML VIAL SC SCH ×2 (08:11→20:54)
[2020-03-06] MEDS ORDERED: Non-Formulary Item 1 EACH (Tiotropium Bromide [Spiriva] 18 MCG Cap.W.Dev) INH SCH (09:00)
[2020-03-06] MEDS: Cefepime 1 GM in Sodium Chloride 0.9% 100 ML IVPB SCH ×2 (10:20→20:54)
[2020-03-06 10:33] LABS: Band 3 % (5-11); Eosinophils 4 % (0-10); Lymphocytes 11 % (21-51); MDiff Complete? YES; Monocytes 12 % (0-10); Myelocyte 1 % (0-0); Neutrophil 69 % (42-75); Polychromasia SLIGHT = 2-3 cells (100X) (0-2/hpf)
--- NOTE | 2020-03-06 11:03 | PDOC.NEPPN ---
- Subjective Encounter Date: 03/06/20 Subjective: Seen in follow up for YAZMIN, Hyperkalemia and marked bilateral leg edema. Patient is confused since yesterday and now requires a sitter. No fever or worsening SOB. - Objective Vital Signs & Weight: Vital Signs (12 hours) Temp Pulse Resp BP Pulse Ox 03/06/20 08:05 98.1 F 100 20 136/65 95 03/06/20 07:22 90 18 03/06/20 03:40 97.8 F 92 18 135/82 92 L 03/06/20 00:00 79 03/05/20 23:08 89 16 90 L Weight Admit Weight 255 lb 11.779 oz Weight 255 lb 11.779 oz I&O: 03/05/20 03/06/20 03/07/20 06:59 06:59 06:59 Intake Total 1310 Output Total 3200 Balance -1890 Result Diagrams: 03/06/20 07:06 03/06/20 07:06 Nephrology ROS - Medication Medications: Active Medications Generic Name Dose Route Start Last Admin Trade Name Freq PRN Reason Stop Dose Admin Acetaminophen 650 mg 03/04/20 15:20 03/04/20 22:21 Acetaminophen 325 Mg Tab PO 650 mg Q4H PRN Administration Headache/Fever/Mild Pain (1-3) Hydrocodone Bitart/Acetaminophen 2 tab 03/05/20 19:52 03/05/20 20:37 Hydrocodone/Acetaminophen 5/325 Mg Tablet PO 2 tab Q4H PRN Administration Severe Pain (7-10) Albuterol/Ipratropium 3 ml 03/04/20 19:00 03/06/20 07:22 Ipratropium/Albuterol Sulfate 3 Ml Neb NEB 3 ml [id number] JAIME Administration Aspirin 81 mg 03/06/20 09:00 03/06/20 08:10 Aspirin 81 Mg Enteric Coated Tablet PO 81 mg DAILY JAIME Administration Budesonide 0.5 mg 03/04/20 18:30 03/06/20 07:22 Budesonide 0.5 Mg/2 Ml Neb NEB 0.5 mg BID-RT JAIME Administration Carvedilol 3.125 mg 03/05/20 21:00 03/06/20 08:10 Carvedilol 3.125 Mg Tab PO 3.125 mg BID JAIME Administration Famotidine 20 mg 03/05/20 09:00 03/06/20 08:10 Famotidine 20 Mg Tab PO 20 mg DAILY JAIME Administration Furosemide 80 mg 03/06/20 06:00 03/06/20 07:13 Furosemide 100 Mg/10 Ml Vial SLOW IVP Not Given Q8HR JAIME Guaifenesin/Dextromethorphan 15 ml 03/04/20 15:20 03/05/20 20:37 Guaifenesin Dm 100-10/5 Ml Udcup PO 15 ml Q4H PRN Administration Cough Heparin Sodium (Porcine) 5,000 units 03/04/20 21:00 03/06/20 08:11 Heparin 5,000 Units/Ml Vial SC 5,000 units Q12HR JAIME Administration Cefepime HCl 1 gm/ Sodium 100 mls @ 200 mls/hr 03/04/20 22:00 03/06/20 10:20 Chloride IVPB 100 mls 1000,2200 JAIME Administration Vancomycin HCl 1.5 gm/ Device 300 mls @ 200 mls/hr 03/05/20 12:00 03/05/20 12:07 IVPB 300 mls 1200 JAIME Administration Metolazone 5 mg 03/06/20 08:30 03/06/20 08:10 Metolazone 5 Mg Tab PO 5 mg 0830 JAIME Administration Pramipexole Dihydrochloride 0.5 mg 03/05/20 21:00 03/05/20 20:37 Pramipexole Di-Hcl 0.25 Mg Tab PO 0.5 mg HS JAIME Administration Prednisone 40 mg 03/06/20 09:00 03/06/20 08:10 Prednisone 20 Mg Tab PO 40 mg DAILY JAIME Administration Saccharomyces Boulardii 250 mg 03/05/20 09:00 03/06/20 08:10 Saccharomyces Boulardii 250 Mg Cap PO 250 mg DAILY JAIME Administration Sodium Chloride 0 ml 03/05/20 01:36 03/05/20 01:47 Sodium Chloride 0.65% Nasal 44 Ml Bot EA NARE 2 spr TIDPRN PRN Administration Nasal Congestion - Exam General Appearance: awake alert Eye: anicteric sclera ENT: normocephalic atraumatic, moist mucosa Neck: supple, symmetric Respiratory: no tachypnea Respiratory - other findings: fair air entry bilaterally with few bibasal crackles. Cardiovascular: RRR Gastrointestinal: normal bowel sounds Gastrointestinal - other findings: obese, soft and non tender Extremities - other findings: moderate bilateral leg edema Neurological: CN's grossly intact, no focal deficits PSYCH: oriented to person, oriented to place Nephrology Results - Labs Result Diagrams: 03/06/20 07:06 03/06/20 07:06 Lab results: WBC 7.9 thou/uL (4.8-10.8) 03/06/20 07:06 Hgb 12.3 g/dL (14.0-18.0) L 03/06/20 07:06 Hct 36.7 % (42.0-52.0) L 03/06/20 07:06 MCV 93.2 fL (78.0-98.0) 03/06/20 07:06 Plt Count 204 thou/uL (130-400) 03/06/20 07:06 Neutrophils % 69.7 % (42.0-75.0) 03/05/20 03:37 Band Neuts % (Manual) 3 % (5-11) L 03/06/20 07:06 Sodium 127 mmol/L (136-145) L 03/06/20 07:06 Potassium 4.1 mmol/L (3.5-5.1) 03/06/20 07:06 Chloride 88 mmol/L (98-107) L 03/06/20 07:06 Carbon Dioxide 27 mmol/L (23-31) 03/06/20 07:06 BUN 34 mg/dL (8.4-25.7) H 03/06/20 07:06 Creatinine 1.37 mg/dL (0.7-1.3) H 03/06/20 07:06 Glucose 82 mg/dL (83-110) L 03/06/20 07:06 Lactic Acid 1.0 mmol/L (0.5-2.2) 03/04/20 23:11 Calcium 9.0 mg/dL (7.8-10.44) 03/06/20 07:06 Total Bilirubin 1.1 mg/dL (0.2-1.2) 03/05/20 06:21 AST 63 U/L (5-34) H 03/05/20 06:21 ALT 31 U/L (8-55) 03/05/20 06:21 Alkaline Phosphatase 75 U/L (40-110) 03/05/20 06:21 Troponin I 0.012 ng/mL (< 0.028) 03/04/20 10:56 B-Natriuretic Peptide 43.6 pg/mL (0-100) 03/06/20 07:06 Serum Total Protein 7.5 g/dL (5.8-8.1) 03/05/20 06:21 Albumin 4.1 g/dL (3.4-4.8) 03/05/20 06:21 Urine Ketones Negative mg/dL (Negative) 03/04/20 17:14 Urine Blood Negative (Negative) 03/04/20 17:14 Urine Nitrite Negative (Negative) 03/04/20 17:14 Ur Leukocyte Esterase Negative Buddy/uL (Negative) 03/04/20 17:14 Urine RBC None Seen HPF (0-3) 03/04/20 17:14 Urine WBC 0-3 HPF (0-3) 03/04/20 17:14 Ur Squamous Epith Cells None Seen HPF (0-3) 03/04/20 17:14 Urine Bacteria None Seen HPF (None Seen) 03/04/20 17:14 Sodium 127 mmol/L (136-145) L 03/06/20 07:06 Potassium 4.1 mmol/L (3.5-5.1) 03/06/20 07:06 Chloride 88 mmol/L (98-107) L 03/06/20 07:06 Carbon Dioxide 27 mmol/L (23-31) 03/06/20 07:06 Anion Gap 16 mmol/L (10-20) 03/06/20 07:06 BUN 34 mg/dL (8.4-25.7) H 03/06/20 07:06 Creatinine 1.37 mg/dL (0.7-1.3) H 03/06/20 07:06 Glucose 82 mg/dL (83-110) L 03/06/20 07:06 Calcium 9.0 mg/dL (7.8-10.44) 03/06/20 07:06 Phosphorus 4.0 mg/dL (2.3-4.7) 03/04/20 23:11 Phosphorus 4.1 mg/dL (2.3-4.7) 03/04/20 23:11 Magnesium 2.7 mg/dL (1.6-2.6) H 03/04/20 23:11 Albumin 4.1 g/dL (3.4-4.8) 03/05/20 06:21 Nephrology AP PN - Plan ASSESSMENT Acute kidney injury: Due to hemodynamic factors related acute CHF/Cardiorenal syndrome. Creat is trending down with diuretic therapy Hyperkalemia: Due to potassium supplementation and acute kidney injury. Resolved Acute on chronic heart failure: Diastolic and or systolic type. Hyponatremia Bilateral leg edema. improving with diuretics Bilateral cellulitis of both lower extremities. Hypertension: Control is fair. PAD and atherosclerosis of the lower extremities PLAN Continue aggressive diuretic therapy with lasix and metolazone Monitor intke and output. Get CXR Await echo report Avoid nephrotoxic agents Renally dose antibiotics. continue other treatments.
--- NOTE | 2020-03-06 11:12 | RAD ---
CHEST 1 VIEW: Date: 03/06/2020 HISTORY: Shortness of breath and edema. COMPARISON: 12/13/2019. FINDINGS: Postop midline sternotomy. Increased linear and interstitial markings noted bilaterally with little o verall change when compared to 12/13/2019 study. No confluent pneumonia or acute edema or pleural eff usion. IMPRESSION: 1. Overall stable appearing increased linear and interstitial markings bilaterally. No significant n ew process. 2. Marked bilateral glenohumeral joint arthrosis changes. POS: OFF
[2020-03-06] MEDS: Vancomycin 1.5 GRAM/300 ML BAG 1.5 GM in Premix Bag 1 BAG IVPB SCH (11:13)
[2020-03-06] MEDS: HYDROcodone/Acetaminophen 5/325 mg Tablet PO PRN ×2 (12:53→21:43)
[2020-03-06] MEDS: Guaifenesin DM 100-10/5 ML UDCUP PO PRN (12:53)
--- NOTE | 2020-03-06 15:53 | PDOC.HOSPP ---
- Subjective Encounter Date: 03/06/20 Encounter Time: 15:44 Subjective: Mr. Palacios is seen and evaluated today. This 79-year-old was admitted to the hospital with acute kidney injury and hyperkalemia which have both improved. He has significant bilateral lower extremity swelling and cellulitis. This also getting better. Since being admitted the patient has been very confused and disoriented. I had a chance to speak with the patient's sister who is listed as next of kin at phone number [phone] she reported to me that this is how the patient has been over the last couple years. There has not been any formal diagnosis of Alzheimer's or any kind of mood disorder. This patient is probably going to need custodial facility on discharge. We will get PT to help get him out of bed. - Objective Vital Signs & Weight: Vital Signs (12 hours) Temp Pulse Resp BP BP Pulse Ox 03/06/20 11:20 98.1 F 91 20 145/75 H 97 03/06/20 08:05 98.1 F 100 20 136/65 95 03/06/20 07:22 90 18 Weight Admit Weight 255 lb 11.779 oz Weight 255 lb 11.779 oz I&O: 03/05/20 03/06/20 03/07/20 06:59 06:59 06:59 Intake Total 1310 Output Total 3200 Balance -1890 Result Diagrams: 03/06/20 07:06 03/06/20 07:06 Radiology Reviewed by me: Yes EKG Reviewed by me: Yes Hospitalist ROS - Review of Systems ROS unobtainable: due to mental status Constitutional: reports: weakness Respiratory: reports: shortness of breath, SOB with excertion Gastrointestinal: reports: nausea Neurological: reports: weakness - Medication Medications: Active Medications Generic Name Dose Route Start Last Admin Trade Name Freq PRN Reason Stop Dose Admin Acetaminophen 650 mg 03/04/20 15:20 03/04/20 22:21 Acetaminophen 325 Mg Tab PO 650 mg Q4H PRN Administration Headache/Fever/Mild Pain (1-3) Hydrocodone Bitart/Acetaminophen 2 tab 03/05/20 19:52 03/06/20 12:53 Hydrocodone/Acetaminophen 5/325 Mg Tablet PO 2 tab Q4H PRN Administration Severe Pain (7-10) Albuterol/Ipratropium 3 ml 03/04/20 19:00 03/06/20 13:55 Ipratropium/Albuterol Sulfate 3 Ml Neb NEB 3 ml [id number] JAIME Administration Aspirin 81 mg 03/06/20 09:00 03/06/20 08:10 Aspirin 81 Mg Enteric Coated Tablet PO 81 mg DAILY JAIME Administration Budesonide 0.5 mg 03/04/20 18:30 03/06/20 07:22 Budesonide 0.5 Mg/2 Ml Neb NEB 0.5 mg BID-RT JAIME Administration Carvedilol 3.125 mg 03/05/20 21:00 03/06/20 08:10 Carvedilol 3.125 Mg Tab PO 3.125 mg BID JAIME Administration Famotidine 20 mg 03/05/20 09:00 03/06/20 08:10 Famotidine 20 Mg Tab PO 20 mg DAILY JAIME Administration Furosemide 80 mg 03/06/20 06:00 03/06/20 13:23 Furosemide 100 Mg/10 Ml Vial SLOW IVP 80 mg Q8HR JAIME Administration Guaifenesin/Dextromethorphan 15 ml 03/04/20 15:20 03/06/20 12:53 Guaifenesin Dm 100-10/5 Ml Udcup PO 15 ml Q4H PRN Administration Cough Heparin Sodium (Porcine) 5,000 units 03/04/20 21:00 03/06/20 08:11 Heparin 5,000 Units/Ml Vial SC 5,000 units Q12HR JAIME Administration Cefepime HCl 1 gm/ Sodium 100 mls @ 200 mls/hr 03/04/20 22:00 03/06/20 10:20 Chloride IVPB 100 mls 1000,2200 JAIME Administration Vancomycin HCl 1.5 gm/ Device 300 mls @ 200 mls/hr 03/05/20 12:00 03/06/20 11:13 IVPB 300 mls 1200 JAIME Administration Metolazone 5 mg 03/06/20 08:30 03/06/20 08:10 Metolazone 5 Mg Tab PO 5 mg 0830 JAIME Administration Pramipexole Dihydrochloride 0.5 mg 03/05/20 21:00 03/05/20 20:37 Pramipexole Di-Hcl 0.25 Mg Tab PO 0.5 mg HS JAIME Administration Prednisone 40 mg 03/06/20 09:00 03/06/20 08:10 Prednisone 20 Mg Tab PO 40 mg DAILY JAIME Administration Saccharomyces Boulardii 250 mg 03/05/20 09:00 03/06/20 08:10 Saccharomyces Boulardii 250 Mg Cap PO 250 mg DAILY JAIME Administration Sodium Chloride 0 ml 03/05/20 01:36 03/05/20 01:47 Sodium Chloride 0.65% Nasal 44 Ml Bot EA NARE 2 spr TIDPRN PRN Administration Nasal Congestion - Exam General Appearance: NAD, awake alert, ill appearing Eye: PERRL, anicteric sclera ENT: normocephalic atraumatic, no oropharyngeal lesions Neck: supple, symmetric, no JVD Heart: RRR, no murmur, no gallops Respiratory: CTAB, no wheezes, no rales Gastrointestinal: soft, non-tender, non-distended Neurological: cranial nerve grossly intact Musculoskeletal: normal tone Psychiatric: normal affect, normal behavior, oriented to person Hosp A/P (1) Acute kidney failure Status: Acute (2) Hyponatremia Code(s): E87.1 - HYPO-OSMOLALITY AND HYPONATREMIA Status: Acute (3) Cellulitis Code(s): L03.90 - CELLULITIS, UNSPECIFIED Status: Chronic Qualifiers: Site of cellulitis: extremity Site of cellulitis of extremity: lower extremity Laterality: unspecified laterality Qualified Code(s): L03.119 - Cellulitis of unspecified part of limb (4) Obesity (BMI 30.0-34.9) Code(s): E66.9 - OBESITY, UNSPECIFIED Status: Chronic (5) Diastolic CHF, acute Code(s): I50.31 - ACUTE DIASTOLIC (CONGESTIVE) HEART FAILURE Status: Acute - Plan old records reviewed/req, PT/OT, out of bed/ambulate, DVT proph w/lovenox #1. Acute kidney injury. Patient with acute kidney injury likely secondary to volume depletion. Nephrology has been asked to evaluate him. I will defer to them about ongoing evaluation. 03/06/2020. Renal function appears to be in recovery as he is diuresing. 2. Hyperkalemia. Likely secondary to above. Corrective measures has been instituted. 03/06/2020. Hyperkalemia has resolved. 3. Congestive heart failure likely diastolic dysfunction. He has significant bilateral pitting edema up to his thighs. Lasix has been started. We will follow up on echocardiogram report. 03/06/2020. Echocardiogram report reviewed. 03/06/2020. He continues to diurese very well. 4. Peripheral arterial disease. This was seen on arterial duplex of his lower extremity. He will likely need CT angiogram to further evaluate this. We will consider vascular surgery consultation. 5. Cellulitis. He is on appropriate IV antibiotics and will follow up on the culture data information.
[2020-03-06] MEDS: Pramipexole Di-HCl 0.25 MG TAB PO SCH (20:52)
[2020-03-07 05:21] LABS: Hemoglobin 12.6 g/dL (14.0-18.0); Mean Corpuscular Hemoglobin 31.5 pg (27.0-31.0); Mean Corpuscular Volume 92.6 fL (78.0-98.0); Mean Platelet Volume 7.6 fL (7.4-10.4); Platelet Count 248 thou/uL (130-400); Red Blood Cell (RBC) Count 3.99 mill/uL (4.70-6.10); White Blood Cell (WBC) Count 10.8 thou/uL (4.8-10.8)
[2020-03-07] MEDS: HYDROcodone/Acetaminophen 5/325 mg Tablet PO PRN (05:26)
[2020-03-07] MEDS: Furosemide 100 MG/10 ML VIAL SLOW IVP SCH ×4 (05:27→20:51)
[2020-03-07 05:45] LABS: Albumin 4.3 g/dL (3.4-4.8); Anion Gap 17 mmol/L (10-20); BUN (Urea Nitrogen) 34 mg/dL (8.4-25.7); BUN/Creatinine Ratio 22.82; Calc. Creatinine Clearance 68 mL/min (70-130); Calcium 9.3 mg/dL (7.8-10.44); Carbon Dioxide 30 mmol/L (23-31); Chloride 86 mmol/L (98-107); Glucose 93 mg/dL (83-110); Magnesium 2.2 mg/dL (1.6-2.6); Phosphorus 2.2 mg/dL (2.3-4.7); Potassium 3.7 mmol/L (3.5-5.1); Sodium 129 mmol/L (136-145)
[2020-03-07] MEDS: Budesonide 0.5 MG/2 ML NEB NEB SCH ×2 (07:17→19:04)
[2020-03-07] MEDS: Heparin 5,000 UNITS/ML VIAL SC SCH ×2 (08:05→20:52)
[2020-03-07] MEDS: Carvedilol 3.125 MG TAB PO SCH ×2 (08:08→20:51)
[2020-03-07] MEDS: Metolazone 5 MG TAB PO SCH (08:08)
[2020-03-07] MEDS: predniSONE 20 MG TAB PO SCH (08:08)
[2020-03-07] MEDS: Saccharomyces boulardii 250 MG CAP PO SCH (08:08)
[2020-03-07] MEDS: Aspirin 81 mg Enteric Coated Tablet PO SCH (08:08)
[2020-03-07] MEDS: Famotidine 20 MG TAB PO SCH (08:08)
--- NOTE | 2020-03-07 09:49 | PDOC.NEPPN ---
- Subjective Encounter Date: 03/07/20 Subjective: Seen in follow up for YAZMIN and marked bilateral leg edema. Patient is still disoriented with some visual hallucination. - Objective Vital Signs & Weight: Vital Signs (12 hours) Temp Pulse Resp BP Pulse Ox 03/07/20 08:00 97.5 F L 95 18 133/65 96 03/07/20 04:00 97.9 F 96 20 122/68 92 L 03/07/20 00:37 92 22 H 94 L 03/06/20 23:35 98.1 F 91 20 129/72 92 L Weight Admit Weight 255 lb 11.779 oz Weight 255 lb 11.779 oz I&O: 03/06/20 03/07/20 03/08/20 06:59 06:59 06:59 Intake Total 1310 2910 Output Total 3200 4950 Balance -1889 -2039 Result Diagrams: 03/07/20 04:32 03/07/20 04:32 Nephrology ROS - Medication Medications: Active Medications Generic Name Dose Route Start Last Admin Trade Name Freq PRN Reason Stop Dose Admin Acetaminophen 650 mg 03/04/20 15:20 03/04/20 22:21 Acetaminophen 325 Mg Tab PO 650 mg Q4H PRN Administration Headache/Fever/Mild Pain (1-3) Hydrocodone Bitart/Acetaminophen 2 tab 03/05/20 19:52 03/07/20 05:26 Hydrocodone/Acetaminophen 5/325 Mg Tablet PO 2 tab Q4H PRN Administration Severe Pain (7-10) Albuterol/Ipratropium 3 ml 03/04/20 19:00 03/07/20 07:18 Ipratropium/Albuterol Sulfate 3 Ml Neb NEB 3 ml [id number] JAIME Administration Aspirin 81 mg 03/06/20 09:00 03/07/20 08:08 Aspirin 81 Mg Enteric Coated Tablet PO 81 mg DAILY JAIME Administration Budesonide 0.5 mg 03/04/20 18:30 03/07/20 07:17 Budesonide 0.5 Mg/2 Ml Neb NEB 0.5 mg BID-RT JAIME Administration Carvedilol 3.125 mg 03/05/20 21:00 03/07/20 08:08 Carvedilol 3.125 Mg Tab PO 3.125 mg BID JAIME Administration Famotidine 20 mg 03/05/20 09:00 03/07/20 08:08 Famotidine 20 Mg Tab PO 20 mg DAILY JAIME Administration Furosemide 80 mg 03/06/20 06:00 03/07/20 05:27 Furosemide 100 Mg/10 Ml Vial SLOW IVP 80 mg Q8HR JAIME Administration Guaifenesin/Dextromethorphan 15 ml 03/04/20 15:20 03/06/20 12:53 Guaifenesin Dm 100-10/5 Ml Udcup PO 15 ml Q4H PRN Administration Cough Heparin Sodium (Porcine) 5,000 units 03/04/20 21:00 03/07/20 08:05 Heparin 5,000 Units/Ml Vial SC 5,000 units Q12HR JAIME Administration Cefepime HCl 1 gm/ Sodium 100 mls @ 200 mls/hr 03/04/20 22:00 03/06/20 20:54 Chloride IVPB 100 mls 1000,2200 JAIME Administration Vancomycin HCl 1.5 gm/ Device 300 mls @ 200 mls/hr 03/05/20 12:00 03/06/20 11:13 IVPB 300 mls 1200 JAIME Administration Metolazone 5 mg 03/06/20 08:30 03/07/20 08:08 Metolazone 5 Mg Tab PO 5 mg 0830 JAIME Administration Pramipexole Dihydrochloride 0.5 mg 03/05/20 21:00 03/06/20 20:52 Pramipexole Di-Hcl 0.25 Mg Tab PO 0.5 mg HS JAIME Administration Prednisone 40 mg 03/06/20 09:00 03/07/20 08:08 Prednisone 20 Mg Tab PO 40 mg DAILY JAIME Administration Saccharomyces Boulardii 250 mg 03/05/20 09:00 03/07/20 08:08 Saccharomyces Boulardii 250 Mg Cap PO 250 mg DAILY JAIME Administration Sodium Chloride 0 ml 03/05/20 01:36 03/05/20 01:47 Sodium Chloride 0.65% Nasal 44 Ml Bot EA NARE 2 spr TIDPRN PRN Administration Nasal Congestion - Exam General Appearance: awake alert Eye: anicteric sclera ENT: normocephalic atraumatic, moist mucosa Neck: supple, no JVD Respiratory: no wheezes, no ronchi, normal chest expansion Respiratory - other findings: fair air entry bilaterally Cardiovascular: RRR Gastrointestinal: soft, non-tender, non-distended, normal bowel sounds Gastrointestinal - other findings: obese Extremities - other findings: Moderate bilateral leg edema with chronic venous stasis changes Neurological: CN's grossly intact, no focal deficits PSYCH: oriented to person, oriented to place Psychiatric - other findings: some confusion and visual hallucinations noted Nephrology Results - Labs Result Diagrams: 03/07/20 04:32 03/07/20 04:32 Lab results: WBC 10.8 thou/uL (4.8-10.8) 03/07/20 04:32 Hgb 12.6 g/dL (14.0-18.0) L 03/07/20 04:32 Hct 37.0 % (42.0-52.0) L 03/07/20 04:32 MCV 92.6 fL (78.0-98.0) 03/07/20 04:32 Plt Count 248 thou/uL (130-400) 03/07/20 04:32 Neutrophils % 69.7 % (42.0-75.0) 03/05/20 03:37 Band Neuts % (Manual) 3 % (5-11) L 03/06/20 07:06 Sodium 129 mmol/L (136-145) L 03/07/20 04:32 Potassium 3.7 mmol/L (3.5-5.1) 03/07/20 04:32 Chloride 86 mmol/L (98-107) L 03/07/20 04:32 Carbon Dioxide 30 mmol/L (23-31) 03/07/20 04:32 BUN 34 mg/dL (8.4-25.7) H 03/07/20 04:32 Creatinine 1.49 mg/dL (0.7-1.3) H 03/07/20 04:32 Glucose 93 mg/dL (83-110) 03/07/20 04:32 Lactic Acid 1.0 mmol/L (0.5-2.2) 03/04/20 23:11 Calcium 9.3 mg/dL (7.8-10.44) 03/07/20 04:32 Total Bilirubin 1.1 mg/dL (0.2-1.2) 03/05/20 06:21 AST 63 U/L (5-34) H 03/05/20 06:21 ALT 31 U/L (8-55) 03/05/20 06:21 Alkaline Phosphatase 75 U/L (40-110) 03/05/20 06:21 Troponin I 0.012 ng/mL (< 0.028) 03/04/20 10:56 B-Natriuretic Peptide 43.6 pg/mL (0-100) 03/06/20 07:06 Serum Total Protein 7.5 g/dL (5.8-8.1) 03/05/20 06:21 Albumin 4.3 g/dL (3.4-4.8) 03/07/20 04:32 Urine Ketones Negative mg/dL (Negative) 03/04/20 17:14 Urine Blood Negative (Negative) 03/04/20 17:14 Urine Nitrite Negative (Negative) 03/04/20 17:14 Ur Leukocyte Esterase Negative Buddy/uL (Negative) 03/04/20 17:14 Urine RBC None Seen HPF (0-3) 03/04/20 17:14 Urine WBC 0-3 HPF (0-3) 03/04/20 17:14 Ur Squamous Epith Cells None Seen HPF (0-3) 03/04/20 17:14 Urine Bacteria None Seen HPF (None Seen) 03/04/20 17:14 Sodium 129 mmol/L (136-145) L 03/07/20 04:32 Potassium 3.7 mmol/L (3.5-5.1) 03/07/20 04:32 Chloride 86 mmol/L (98-107) L 03/07/20 04:32 Carbon Dioxide 30 mmol/L (23-31) 03/07/20 04:32 Anion Gap 17 mmol/L (10-20) 03/07/20 04:32 BUN 34 mg/dL (8.4-25.7) H 03/07/20 04:32 Creatinine 1.49 mg/dL (0.7-1.3) H 03/07/20 04:32 Glucose 93 mg/dL (83-110) 03/07/20 04:32 Calcium 9.3 mg/dL (7.8-10.44) 03/07/20 04:32 Phosphorus 2.2 mg/dL (2.3-4.7) L 03/07/20 04:32 Magnesium 2.2 mg/dL (1.6-2.6) 12/24/20 04:32 Albumin 4.3 g/dL (3.4-4.8) 03/07/20 04:32 Nephrology AP PN - Plan ASSESSMENT Acute kidney injury: Due to hemodynamic factors related acute CHF/Cardiorenal syndrome. Creat is trending down with diuretic therapy Hyperkalemia: Due to potassium supplementation and acute kidney injury. Resolved Acute on chronic heart failure: Diastolic and or systolic type. Hyponatremia Bilateral leg edema. improving with diuretics Bilateral cellulitis of both lower extremities. Hypertension: Control is aceeptable PAD and atherosclerosis of the lower extremities PLAN Continue aggressive diuretic therapy with lasix and metolazone Monitor intake and output. Anticipate de escalation of diuretics tomorrow Decrease fluid intake Avoid nephrotoxic agents continue other treatments.
[2020-03-07] MEDS ORDERED: AcetaZOLAMIDE 250 MG TAB PO SCH (10:00)
[2020-03-07] MEDS: Cefepime 1 GM in Sodium Chloride 0.9% 100 ML IVPB SCH ×2 (10:54→20:52)
[2020-03-07 12:07] LABS: Vancomycin, Trough 21.5 ug/mL
[2020-03-07] MEDS: Vancomycin 1.5 GRAM/300 ML BAG 1.5 GM in Premix Bag 1 BAG IVPB SCH (13:00)
[2020-03-07] MEDS ORDERED: Vancomycin HCl 1.25 GM in Sodium Chloride 0.9% 250 ML 250 ML IVPB SCH (13:00)
--- NOTE | 2020-03-07 16:48 | PDOC.HOSPP ---
- Subjective Encounter Date: 03/07/20 Encounter Time: 16:46 Subjective: Patient remains somewhat confused and disoriented. I was able to talk to his sister at the phone number listed which is [phone]. Patient has been known to be hallucinating on occasions. His systems are not necessarily there. Sister reported that he has never really been diagnosed with any kind of mood disorder and as far as she knows he has not been diagnosed with dementia. The patient's thoughts are very tangential. His speech appears to be pressured. He is very easily distracted. He could potentially be evaluated by psychiatry as outpatient. His renal function continues to improve. Hyperkalemia has re solved. He will likely benefit from rehab placement. - Objective Vital Signs & Weight: Vital Signs (12 hours) Temp Pulse Resp BP BP Pulse Ox 03/07/20 15:18 97.5 F L 89 18 119/59 L 97 03/07/20 11:01 97.5 F L 91 18 153/80 H 97 03/07/20 08:00 97.5 F L 95 18 133/65 96 Weight Admit Weight 255 lb 11.779 oz Weight 255 lb 11.779 oz I&O: 03/06/20 03/07/20 03/08/20 06:59 06:59 06:59 Intake Total 1310 2910 Output Total 3200 4950 Balance -189 -2039 Result Diagrams: 03/07/20 04:32 03/07/20 04:32 Radiology Reviewed by me: Yes EKG Reviewed by me: Yes Hospitalist ROS - Review of Systems Constitutional: reports: fever Cardiovascular: reports: chest pain, palpitations, orthopnea Gastrointestinal: reports: nausea, vomiting Neurological: reports: weakness, numbness - Medication Medications: Active Medications Generic Name Dose Route Start Last Admin Trade Name Freq PRN Reason Stop Dose Admin Acetaminophen 650 mg 03/04/20 15:20 03/04/20 22:21 Acetaminophen 325 Mg Tab PO 650 mg Q4H PRN Administration Headache/Fever/Mild Pain (1-3) Hydrocodone Bitart/Acetaminophen 2 tab 03/05/20 19:52 03/07/20 05:26 Hydrocodone/Acetaminophen 5/325 Mg Tablet PO 2 tab Q4H PRN Administration Severe Pain (7-10) Albuterol/Ipratropium 3 ml 03/04/20 19:00 03/07/20 14:24 Ipratropium/Albuterol Sulfate 3 Ml Neb NEB Not Given [id number] JAIME Aspirin 81 mg 03/06/20 09:00 03/07/20 08:08 Aspirin 81 Mg Enteric Coated Tablet PO 81 mg DAILY JAIME Administration Budesonide 0.5 mg 03/04/20 18:30 03/07/20 07:17 Budesonide 0.5 Mg/2 Ml Neb NEB 0.5 mg BID-RT JAIME Administration Carvedilol 3.125 mg 03/05/20 21:00 03/07/20 08:08 Carvedilol 3.125 Mg Tab PO 3.125 mg BID JAIME Administration Famotidine 20 mg 03/05/20 09:00 03/07/20 08:08 Famotidine 20 Mg Tab PO 20 mg DAILY JAIME Administration Furosemide 80 mg 03/06/20 06:00 03/07/20 13:14 Furosemide 100 Mg/10 Ml Vial SLOW IVP Not Given Q8HR JAIME Guaifenesin/Dextromethorphan 15 ml 03/04/20 15:20 03/06/20 12:53 Guaifenesin Dm 100-10/5 Ml Udcup PO 15 ml Q4H PRN Administration Cough Heparin Sodium (Porcine) 5,000 units 03/04/20 21:00 03/07/20 08:05 Heparin 5,000 Units/Ml Vial SC 5,000 units Q12HR JAIME Administration Cefepime HCl 1 gm/ Sodium 100 mls @ 200 mls/hr 03/04/20 22:00 03/07/20 10:54 Chloride IVPB 100 mls 1000,2200 JAIME Administration Vancomycin HCl 1.25 gm/ Sodium 250 mls @ 166.667 mls/hr 03/07/20 13:00 03/07/20 13:21 Chloride IVPB 250 mls 1300 JAIME Administration Metolazone 5 mg 03/06/20 08:30 03/07/20 08:08 Metolazone 5 Mg Tab PO 5 mg 0830 JAIME Administration Pramipexole Dihydrochloride 0.5 mg 03/05/20 21:00 03/06/20 20:52 Pramipexole Di-Hcl 0.25 Mg Tab PO 0.5 mg HS JAIME Administration Prednisone 40 mg 03/06/20 09:00 03/07/20 08:08 Prednisone 20 Mg Tab PO 40 mg DAILY JAIME Administration Saccharomyces Lowelldii 250 mg 03/05/20 09:00 03/07/20 08:08 Saccharomyces Boulardii 250 Mg Cap PO 250 mg DAILY JAIME Administration Sodium Chloride 0 ml 03/05/20 01:36 03/05/20 01:47 Sodium Chloride 0.65% Nasal 44 Ml Bot EA NARE 2 spr TIDPRN PRN Administration Nasal Congestion - Exam General Appearance: awake alert, ill appearing Eye: PERRL, anicteric sclera ENT: normocephalic atraumatic, no oropharyngeal lesions Neck: supple, symmetric, no JVD, no thyromegaly Heart: RRR, no murmur, no gallops Respiratory: CTAB, no wheezes Gastrointestinal: soft, non-tender, non-distended, normal bowel sounds Neurological: cranial nerve grossly intact Musculoskeletal: normal tone Psychiatric: normal affect, normal behavior, A&O x 3 Hosp A/P (1) Acute kidney failure Status: Acute (2) Hyponatremia Code(s): E87.1 - HYPO-OSMOLALITY AND HYPONATREMIA Status: Acute (3) Cellulitis Code(s): L03.90 - CELLULITIS, UNSPECIFIED Status: Chronic Qualifiers: Site of cellulitis: extremity Site of cellulitis of extremity: lower extremity Laterality: unspecified laterality Qualified Code(s): L03.119 - Cellulitis of unspecified part of limb (4) Obesity (BMI 30.0-34.9) Code(s): E66.9 - OBESITY, UNSPECIFIED Status: Chronic (5) Diastolic CHF, acute Code(s): I50.31 - ACUTE DIASTOLIC (CONGESTIVE) HEART FAILURE Status: Acute - Plan old records reviewed/req, PT/OT #1. Acute kidney injury. Patient with acute kidney injury likely secondary to volume depletion. Nephrology has been asked to evaluate him. I will defer to them about ongoing evaluation. 03/06/2020. Renal function appears to be in recovery as he is diuresing. 2. Hyperkalemia. Likely secondary to above. Corrective measures has been instituted. 03/06/2020. Hyperkalemia has resolved. 3. Congestive heart failure likely diastolic dysfunction. He has significant bilateral pitting edema up to his thighs. Lasix has been started. We will follow up on echocardiogram report. 03/06/2020. Echocardiogram report reviewed. 03/06/2020. He continues to diurese very well. 4. Peripheral arterial disease. This was seen on arterial duplex of his lower extremity. He will likely need CT angiogram to further evaluate this. We will consider vascular surgery consultation. 5. Cellulitis. He is on appropriate IV antibiotics and will follow up on the culture data information. 03/07/2020. This continues to improve.
[2020-03-07] MEDS: Pramipexole Di-HCl 0.25 MG TAB PO SCH (20:51)
[2020-03-08 04:33] LABS: Albumin 3.6 g/dL (3.4-4.8); Anion Gap 18 mmol/L (10-20); BUN (Urea Nitrogen) 45 mg/dL (8.4-25.7); BUN/Creatinine Ratio 23.08; Calc. Creatinine Clearance 52 mL/min (70-130); Calcium 8.4 mg/dL (7.8-10.44); Carbon Dioxide 23 mmol/L (23-31); Chloride 89 mmol/L (98-107); Glucose 113 mg/dL (83-110); Phosphorus 2.5 mg/dL (2.3-4.7); Potassium 3.2 mmol/L (3.5-5.1); Sodium 127 mmol/L (136-145)
[2020-03-08] MEDS: Budesonide 0.5 MG/2 ML NEB NEB SCH ×2 (07:47→18:45)
[2020-03-08] MEDS: Cefepime 1 GM in Sodium Chloride 0.9% 100 ML IVPB SCH ×2 (09:08→21:10)
[2020-03-08] MEDS: Famotidine 20 MG TAB PO SCH (09:09)
[2020-03-08] MEDS: Aspirin 81 mg Enteric Coated Tablet PO SCH (09:09)
[2020-03-08] MEDS: Heparin 5,000 UNITS/ML VIAL SC SCH ×2 (09:09→20:20)
[2020-03-08] MEDS: predniSONE 20 MG TAB PO SCH (09:09)
[2020-03-08] MEDS: Saccharomyces boulardii 250 MG CAP PO SCH (09:09)
--- NOTE | 2020-03-08 09:16 | PDOC.NEPPN ---
- Subjective Encounter Date: 03/08/20 Subjective: Pulled out IV access and bleed through. Amount blood loss could not be q uantified. No new problem. - Objective Vital Signs & Weight: Vital Signs (12 hours) Temp Pulse Resp BP Pulse Ox 03/08/20 07:47 98.4 F 79 16 99/54 L 94 L 03/08/20 03:31 98.0 F 78 16 96/62 93 L 03/08/20 00:29 83 16 93 L 03/08/20 00:10 96/58 L 03/07/20 23:54 80 84/50 L Weight Admit Weight 255 lb 11.779 oz Weight 255 lb 11.779 oz I&O: 03/07/20 03/08/20 03/09/20 06:59 06:59 06:59 Intake Total 2910 1800 Output Total 4950 2200 Balance -2040 -400 Result Diagrams: 03/07/20 04:32 03/08/20 03:58 Nephrology ROS - Medication Medications: Active Medications Generic Name Dose Route Start Last Admin Trade Name Freq PRN Reason Stop Dose Admin Acetaminophen 650 mg 03/04/20 15:20 03/04/20 22:21 Acetaminophen 325 Mg Tab PO 650 mg Q4H PRN Administration Headache/Fever/Mild Pain (1-3) Hydrocodone Bitart/Acetaminophen 2 tab 03/05/20 19:52 03/07/20 05:26 Hydrocodone/Acetaminophen 5/325 Mg Tablet PO 2 tab Q4H PRN Administration Severe Pain (7-10) Albuterol/Ipratropium 3 ml 03/04/20 19:00 03/08/20 07:47 Ipratropium/Albuterol Sulfate 3 Ml Neb NEB 3 ml [id number] JAIME Administration Aspirin 81 mg 03/06/20 09:00 03/07/20 08:08 Aspirin 81 Mg Enteric Coated Tablet PO 81 mg DAILY JAIME Administration Budesonide 0.5 mg 03/04/20 18:30 03/08/20 07:47 Budesonide 0.5 Mg/2 Ml Neb NEB 0.5 mg BID-RT JAIME Administration Carvedilol 3.125 mg 03/05/20 21:00 03/07/20 20:51 Carvedilol 3.125 Mg Tab PO 3.125 mg BID JAIME Administration Famotidine 20 mg 03/05/20 09:00 03/07/20 08:08 Famotidine 20 Mg Tab PO 20 mg DAILY JAIME Administration Guaifenesin/Dextromethorphan 15 ml 03/04/20 15:20 03/06/20 12:53 Guaifenesin Dm 100-10/5 Ml Udcup PO 15 ml Q4H PRN Administration Cough Heparin Sodium (Porcine) 5,000 units 03/04/20 21:00 03/07/20 20:52 Heparin 5,000 Units/Ml Vial SC 5,000 units Q12HR JAIME Administration Cefepime HCl 1 gm/ Sodium 100 mls @ 200 mls/hr 03/04/20 22:00 03/07/20 20:52 Chloride IVPB 100 mls 1000,2200 JAIME Administration Vancomycin HCl 1.25 gm/ Sodium 250 mls @ 166.667 mls/hr 03/07/20 13:00 03/07/20 13:21 Chloride IVPB 250 mls 1300 JAIME Administration Pramipexole Dihydrochloride 0.5 mg 03/05/20 21:00 03/07/20 20:51 Pramipexole Di-Hcl 0.25 Mg Tab PO 0.5 mg HS JAIME Administration Prednisone 40 mg 03/06/20 09:00 03/07/20 08:08 Prednisone 20 Mg Tab PO 40 mg DAILY JAIME Administration Saccharomyces Boulardii 250 mg 03/05/20 09:00 03/07/20 08:08 Saccharomyces Boulardii 250 Mg Cap PO 250 mg DAILY JAIME Administration Sodium Chloride 0 ml 03/05/20 01:36 03/05/20 01:47 Sodium Chloride 0.65% Nasal 44 Ml Bot EA NARE 2 spr TIDPRN PRN Administration Nasal Congestion - Exam General Appearance: awake alert Eye: anicteric sclera ENT: normocephalic atraumatic, moist mucosa Neck: supple, symmetric, no JVD Respiratory: no wheezes, no rales, no ronchi, normal chest expansion, no tachypnea Cardiovascular: RRR Gastrointestinal: soft, non-tender, normal bowel sounds Extremities: 2+ LE edema Skin - other findings: chronic venous stasis changes of both legs associated wi th ulcers and eryth Neurological: CN's grossly intact, no focal deficits PSYCH: A&O x 3 Psychiatric - other findings: still with some delusion and hallucinations Nephrology Results - Labs Result Diagrams: 03/07/20 04:32 03/08/20 03:58 Lab results: WBC 10.8 thou/uL (4.8-10.8) 03/07/20 04:32 Hgb 12.6 g/dL (14.0-18.0) L 03/07/20 04:32 Hct 37.0 % (42.0-52.0) L 03/07/20 04:32 MCV 92.6 fL (78.0-98.0) 03/07/20 04:32 Plt Count 248 thou/uL (130-400) 03/07/20 04:32 Neutrophils % 69.7 % (42.0-75.0) 03/05/20 03:37 Band Neuts % (Manual) 3 % (5-11) L 03/06/20 07:06 Sodium 127 mmol/L (136-145) L 03/08/20 03:58 Potassium 3.2 mmol/L (3.5-5.1) L 03/08/20 03:58 Chloride 89 mmol/L (98-107) L 03/08/20 03:58 Carbon Dioxide 23 mmol/L (23-31) 03/08/20 03:58 BUN 45 mg/dL (8.4-25.7) H 03/08/20 03:58 Creatinine 1.95 mg/dL (0.7-1.3) H 03/08/20 03:58 Glucose 113 mg/dL (83-110) H 03/08/20 03:58 Lactic Acid 1.0 mmol/L (0.5-2.2) 03/04/20 23:11 Calcium 8.4 mg/dL (7.8-10.44) 03/08/20 03:58 Total Bilirubin 1.1 mg/dL (0.2-1.2) 03/05/20 06:21 AST 63 U/L (5-34) H 03/05/20 06:21 ALT 31 U/L (8-55) 03/05/20 06:21 Alkaline Phosphatase 75 U/L (40-110) 03/05/20 06:21 Ammonia Less than 12 umol/L (18-72) L 03/08/20 06:39 Troponin I 0.012 ng/mL (< 0.028) 03/04/20 10:56 B-Natriuretic Peptide 43.6 pg/mL (0-100) 03/06/20 07:06 Serum Total Protein 7.5 g/dL (5.8-8.1) 03/05/20 06:21 Albumin 3.6 g/dL (3.4-4.8) 03/08/20 03:58 Urine Ketones Negative mg/dL (Negative) 03/04/20 17:14 Urine Blood Negative (Negative) 03/04/20 17:14 Urine Nitrite Negative (Negative) 03/04/20 17:14 Ur Leukocyte Esterase Negative Buddy/uL (Negative) 03/04/20 17:14 Urine RBC None Seen HPF (0-3) 03/04/20 17:14 Urine WBC 0-3 HPF (0-3) 03/04/20 17:14 Ur Squamous Epith Cells None Seen HPF (0-3) 03/04/20 17:14 Urine Bacteria None Seen HPF (None Seen) 03/04/20 17:14 Sodium 127 mmol/L (136-145) L 03/08/20 03:58 Potassium 3.2 mmol/L (3.5-5.1) L 03/08/20 03:58 Chloride 89 mmol/L (98-107) L 03/08/20 03:58 Carbon Dioxide 23 mmol/L (23-31) 03/08/20 03:58 Anion Gap 18 mmol/L (10-20) 03/08/20 03:58 BUN 45 mg/dL (8.4-25.7) H 03/08/20 03:58 Creatinine 1.95 mg/dL (0.7-1.3) H 03/08/20 03:58 Glucose 113 mg/dL (83-110) H 03/08/20 03:58 Calcium 8.4 mg/dL (7.8-10.44) 03/08/20 03:58 Phosphorus 2.5 mg/dL (2.3-4.7) 03/08/20 03:58 Magnesium 2.2 mg/dL (1.6-2.6) 03/07/20 04:32 Albumin 3.6 g/dL (3.4-4.8) 03/08/20 03:58 Nephrology AP PN - Plan ASSESSMENT Acute kidney injury: Due to hemodynamic factors related acute CHF/Cardiorenal syndrome. Creat has been trending down with diuretic therapy. Acutely went up overnight. Had some bleeding from iV access as well as hypotension. Also on Vancomycin with trough above 20 yesterday Hyperkalemia: Due to potassium supplementation and acute kidney injury. Resolved Hypokalemia: due to diuretic therapy Acute on chronic diastolic heart failure: Hyponatremia Bilateral leg edema. improved with diuretics Bilateral cellulitis of both lower extremities. Hypertension: BP is now low/soft PAD and atherosclerosis of the lower extremities PLAN Replete serum potassium. DC diuretic therapy given hypotension and acute increase in creat Also DC vancomycin for possibility of Van induced nephropathy Monitor intake and output. Follow H/H and renal function. Elevate both lower extremities Avoid nephrotoxic agents continue other treatments.
[2020-03-08] MEDS ORDERED: Potassium Chloride 20 MEQ TAB PO SCH (09:30)
[2020-03-08] MEDS: Carvedilol 3.125 MG TAB PO SCH ×2 (10:01→20:20)
--- NOTE | 2020-03-08 14:32 | PDOC.HOSPP ---
- Subjective Encounter Date: 03/08/20 Encounter Time: 14:30 Subjective: Mr. Palacios is a 79-year-old who was admitted to the hospital for acute kidney injury complicated by hyperkalemia. He has history of diastolic heart failure and he takes Lasix with potassium supplementation at home. He reportedly was not peeing enough despite being on his Lasix. He started noticing increased swelling of his bilateral lower extremity and difficulty with breathing on exertion and he decided to present to the hospital to be evaluated. He was seen in consult by nephrology due to the acute kidney injury and hyperkalemia. With adjustment of fluid and the diuretics his renal function appears to be in rec overy. He is diuresing very well. He does have bilateral appearing cellulitis but I suspect this is likely arterial disease. He had an arterial Doppler that suggested bilateral atherosclerotic disease. He will likely need an angiogram study but with his renal dysfunction this will have to wait for now. He did not describe any claudication type discomfort. He has not had any resting type pain . At any rate he is on IV antibiotics with cefepime and vancomycin. This will be continued and hopefully deescalated as deemed necessary. - Objective Vital Signs & Weight: Vital Signs (12 hours) Temp Pulse Resp BP Pulse Ox 03/08/20 14:00 81 20 03/08/20 12:15 97.8 F 78 17 93/56 L 94 L 03/08/20 07:47 98.4 F 79 16 99/54 L 94 L 03/08/20 03:31 98.0 F 78 16 96/62 93 L Weight Admit Weight 255 lb 11.779 oz Weight 255 lb 11.779 oz I&O: 03/07/20 03/08/20 03/09/20 06:59 06:59 06:59 Intake Total 2910 1800 Output Total 4950 2200 Balance -0 -400 Result Diagrams: 03/07/20 04:32 03/08/20 03:58 Hospitalist ROS - Review of Systems Gastrointestinal: reports: nausea Skin: reports: rash Neurological: reports: weakness - Medication Medications: Active Medications Generic Name Dose Route Start Last Admin Trade Name Freq PRN Reason Stop Dose Admin Acetaminophen 650 mg 03/04/20 15:20 03/04/20 22:21 Acetaminophen 325 Mg Tab PO 650 mg Q4H PRN Administration Headache/Fever/Mild Pain (1-3) Hydrocodone Bitart/Acetaminophen 2 tab 03/05/20 19:52 03/07/20 05:26 Hydrocodone/Acetaminophen 5/325 Mg Tablet PO 2 tab Q4H PRN Administration Severe Pain (7-10) Albuterol/Ipratropium 3 ml 03/04/20 19:00 03/08/20 14:00 Ipratropium/Albuterol Sulfate 3 Ml Neb NEB 3 ml [id number] JAIME Administration Aspirin 81 mg 03/06/20 09:00 03/08/20 09:09 Aspirin 81 Mg Enteric Coated Tablet PO 81 mg DAILY JAIME Administration Budesonide 0.5 mg 03/04/20 18:30 03/08/20 07:47 Budesonide 0.5 Mg/2 Ml Neb NEB 0.5 mg BID-RT JAIME Administration Carvedilol 3.125 mg 03/05/20 21:00 03/08/20 10:01 Carvedilol 3.125 Mg Tab PO Not Given BID JAIME Famotidine 20 mg 03/05/20 09:00 03/08/20 09:09 Famotidine 20 Mg Tab PO 20 mg DAILY JAIME Administration Guaifenesin/Dextromethorphan 15 ml 03/04/20 15:20 03/06/20 12:53 Guaifenesin Dm 100-10/5 Ml Udcup PO 15 ml Q4H PRN Administration Cough Heparin Sodium (Porcine) 5,000 units 03/04/20 21:00 03/08/20 09:09 Heparin 5,000 Units/Ml Vial SC 5,000 units Q12HR JAIME Administration Cefepime HCl 1 gm/ Sodium 100 mls @ 200 mls/hr 03/04/20 22:00 03/08/20 09:08 Chloride IVPB 100 mls 1000,2200 JAIME Administration Pramipexole Dihydrochloride 0.5 mg 03/05/20 21:00 03/07/20 20:51 Pramipexole Di-Hcl 0.25 Mg Tab PO 0.5 mg HS JAIME Administration Prednisone 40 mg 03/06/20 09:00 03/08/20 09:09 Prednisone 20 Mg Tab PO 40 mg DAILY JAIME Administration Saccharomyces Boulardii 250 mg 03/05/20 09:00 03/08/20 09:09 Saccharomyces Boulardii 250 Mg Cap PO 250 mg DAILY JAIME Administration Sodium Chloride 0 ml 03/05/20 01:36 03/05/20 01:47 Sodium Chloride 0.65% Nasal 44 Ml Bot EA NARE 2 spr TIDPRN PRN Administration Nasal Congestion - Exam General Appearance: awake alert Eye: PERRL, anicteric sclera ENT: normocephalic atraumatic, no oropharyngeal lesions Neck: supple, JVD Heart: RRR, no murmur, no gallops, no rubs Respiratory: CTAB, no wheezes, rales Gastrointestinal: soft, non-tender, non-distended, normal bowel sounds Extremities: 2+ LE edema Neurological: cranial nerve grossly intact, normal sensation to touch Psychiatric: normal affect, normal behavior, A&O x 3 Hosp A/P (1) Acute kidney failure Status: Acute (2) Hyponatremia Code(s): E87.1 - HYPO-OSMOLALITY AND HYPONATREMIA Status: Acute (3) Cellulitis Code(s): L03.90 - CELLULITIS, UNSPECIFIED Status: Chronic Qualifiers: Site of cellulitis: extremity Site of cellulitis of extremity: lower extremity Laterality: unspecified laterality Qualified Code(s): L03.119 - Cellulitis of unspecified part of limb (4) Obesity (BMI 30.0-34.9) Code(s): E66.9 - OBESITY, UNSPECIFIED Status: Chronic (5) Diastolic CHF, acute Code(s): I50.31 - ACUTE DIASTOLIC (CONGESTIVE) HEART FAILURE Status: Acute - Plan plan discussed w/ family, PT/OT, social welfare administrator #1. Acute kidney injury. Patient with acute kidney injury likely secondary to volume depletion. Nephrology has been asked to evaluate him. I will defer to them about ongoing evaluation. 03/06/2020. Renal function appears to be in recovery as he is diuresing. 2. Hyperkalemia. Likely secondary to above. Corrective measures has been instituted. 03/06/2020. Hyperkalemia has resolved. 3. Congestive heart failure likely diastolic dysfunction. He has significant bilateral pitting edema up to his thighs. Lasix has been started. We will follow up on echocardiogram report. 03/06/2020. Echocardiogram report reviewed. 03/06/2020. He continues to diurese very well. 4. Peripheral arterial disease. This was seen on arterial duplex of his lower extremity. He will likely need CT angiogram to further evaluate this. We will consider vascular surgery consultation. 5. Cellulitis. He is on appropriate IV antibiotics and will follow up on the culture data information. 03/07/2020. This continues to improve.
[2020-03-08] MEDS: Pramipexole Di-HCl 0.25 MG TAB PO SCH (20:20)
[2020-03-09] MEDS ORDERED: Budesonide 0.5 MG/2 ML NEB ONE (04:03)
[2020-03-09 04:29] LABS: #Lymphocytes 0.9 thou/uL (1.20-3.40); #Monocytes 0.9 thou/uL (0.11-0.59); #Neutrophils 6.3 thou/uL (1.40-6.50); %Basophils 0.1 % (0.0-1.0); %Eosinophils 0.2 % (0.0-10.0); %Lymphocytes 10.7 % (21.0-51.0); %Monocytes 11.4 % (0.0-10.0); %Neutrophils 77.6 % (42.0-75.0); Mean Corpuscular HGB CONC 34.3 g/dL (32.0-36.0); Mean Corpuscular Hemoglobin 31.6 pg (27.0-31.0); Mean Corpuscular Volume 92.3 fL (78.0-98.0); Mean Platelet Volume 7.3 fL (7.4-10.4); Platelet Count 256 thou/uL (130-400); RBC Distribution Width 13.7 % (11.5-14.5); Red Blood Cell (RBC) Count 3.79 mill/uL (4.70-6.10); White Blood Cell (WBC) Count 8.1 thou/uL (4.8-10.8)
[2020-03-09] MEDS: Budesonide 0.5 MG/2 ML NEB NEB SCH ×2 (04:38→18:32)
[2020-03-09 04:45] LABS: Albumin 4.1 g/dL (3.4-4.8); Anion Gap 15 mmol/L (10-20); BUN (Urea Nitrogen) 41 mg/dL (8.4-25.7); Calc. Creatinine Clearance 73 mL/min (70-130); Calcium 9.1 mg/dL (7.8-10.44); Carbon Dioxide 30 mmol/L (23-31); Chloride 90 mmol/L (98-107); Glucose 108 mg/dL (83-110); Phosphorus 2.2 mg/dL (2.3-4.7); Potassium 3.2 mmol/L (3.5-5.1); Sodium 132 mmol/L (136-145)
[2020-03-09] MEDS ORDERED: Potassium Chloride 20 MEQ TAB PO SCH (06:45)
[2020-03-09] MEDS: Spironolactone 25 MG TAB PO SCH (07:50)
[2020-03-09] MEDS: Heparin 5,000 UNITS/ML VIAL SC SCH ×2 (07:51→21:00)
[2020-03-09] MEDS: Famotidine 20 MG TAB PO SCH (07:51)
[2020-03-09] MEDS: predniSONE 20 MG TAB PO SCH (07:51)
[2020-03-09] MEDS: Carvedilol 3.125 MG TAB PO SCH ×2 (07:51→21:00)
[2020-03-09] MEDS: Aspirin 81 mg Enteric Coated Tablet PO SCH (07:51)
[2020-03-09] MEDS: Saccharomyces boulardii 250 MG CAP PO SCH (07:52)
[2020-03-09] MEDS: Torsemide 20 MG TAB PO SCH (07:52)
[2020-03-09] MEDS: Cefepime 1 GM in Sodium Chloride 0.9% 100 ML IVPB SCH ×2 (10:36→22:00)
--- NOTE | 2020-03-09 13:47 | PDOC.NEPPN ---
- Subjective Encounter Date: 03/09/20 Subjective: No new problem. Still complaining of restless leg symptoms. No SOB. - Objective Vital Signs & Weight: Vital Signs (12 hours) Temp Pulse Resp BP Pulse Ox 03/09/20 12:09 96 18 128/81 95 03/09/20 07:10 97.7 F 87 20 97/54 L 97 03/09/20 04:16 85 18 95 03/09/20 04:00 97.9 F 79 17 129/65 92 L Weight Admit Weight 255 lb 11.779 oz Weight 255 lb 11.779 oz I&O: 03/08/20 03/09/20 03/10/20 06:59 06:59 06:59 Intake Total 1800 1060 Output Total 2200 2150 Balance -400 -1090 Result Diagrams: 03/09/20 04:04 03/09/20 04:04 Nephrology ROS - Medication Medications: Active Medications Generic Name Dose Route Start Last Admin Trade Name Freq PRN Reason Stop Dose Admin Acetaminophen 650 mg 03/04/20 15:20 03/04/20 22:21 Acetaminophen 325 Mg Tab PO 650 mg Q4H PRN Administration Headache/Fever/Mild Pain (1-3) Hydrocodone Bitart/Acetaminophen 1 tab 03/05/20 19:52 03/08/20 17:09 Hydrocodone/Acetaminophen 5/325 Mg Tablet PO 1 tab Q4H PRN Administration Moderate Pain (4-6) Hydrocodone Bitart/Acetaminophen 2 tab 03/05/20 19:52 03/07/20 05:26 Hydrocodone/Acetaminophen 5/325 Mg Tablet PO 2 tab Q4H PRN Administration Severe Pain (7-10) Albuterol/Ipratropium 3 ml 03/04/20 19:00 03/09/20 04:39 Ipratropium/Albuterol Sulfate 3 Ml Neb NEB 3 ml [id number] JAIME Administration Aspirin 81 mg 03/06/20 09:00 03/09/20 07:51 Aspirin 81 Mg Enteric Coated Tablet PO 81 mg DAILY JAIME Administration Budesonide 0.5 mg 03/04/20 18:30 03/09/20 04:38 Budesonide 0.5 Mg/2 Ml Neb NEB 0.5 mg BID-RT JAIME Administration Carvedilol 3.125 mg 03/05/20 21:00 03/09/20 07:51 Carvedilol 3.125 Mg Tab PO Not Given BID JAIME Famotidine 20 mg 03/05/20 09:00 03/09/20 07:51 Famotidine 20 Mg Tab PO 20 mg DAILY JAIME Administration Guaifenesin/Dextromethorphan 15 ml 03/04/20 15:20 03/06/20 12:53 Guaifenesin Dm 100-10/5 Ml Udcup PO 15 ml Q4H PRN Administration Cough Heparin Sodium (Porcine) 5,000 units 03/04/20 21:00 03/09/20 07:51 Heparin 5,000 Units/Ml Vial SC 5,000 units Q12HR JAIME Administration Cefepime HCl 1 gm/ Sodium 100 mls @ 200 mls/hr 03/04/20 22:00 03/09/20 10:36 Chloride IVPB 100 mls 1000,2200 JAIME Administration Pramipexole Dihydrochloride 0.5 mg 03/05/20 21:00 03/08/20 20:20 Pramipexole Di-Hcl 0.25 Mg Tab PO 0.5 mg HS JAIME Administration Prednisone 40 mg 03/06/20 09:00 03/09/20 07:51 Prednisone 20 Mg Tab PO 40 mg DAILY JAIME Administration Saccharomyces Boulardii 250 mg 03/05/20 09:00 03/09/20 07:52 Saccharomyces Boulardii 250 Mg Cap PO 250 mg DAILY JAIME Administration Sodium Chloride 0 ml 03/05/20 01:36 03/05/20 01:47 Sodium Chloride 0.65% Nasal 44 Ml Bot EA NARE 2 spr TIDPRN PRN Administration Nasal Congestion Sodium Chloride 10 ml 03/08/20 21:00 03/09/20 07:52 Flush - Normal Saline 10 Ml Syringe IVF 10 ml Q12HR JAIME Administration Spironolactone 25 mg 03/09/20 08:00 03/09/20 07:50 Spironolactone 25 Mg Tab PO Not Given QAM-WM JAIME Torsemide 20 mg 03/09/20 09:00 03/09/20 07:52 Torsemide 20 Mg Tab PO Not Given DAILY JAIME - Exam General Appearance: awake alert Eye: anicteric sclera ENT: normocephalic atraumatic Neck: symmetric, no JVD Respiratory: no wheezes, no rales, no ronchi, normal chest expansion Cardiovascular: RRR Gastrointestinal: soft, non-distended, normal bowel sounds Extremities - other findings: moderate bilateral leg edema and leg dressings noted Neurological: CN's grossly intact, no focal deficits Musculoskeletal: generalized weakness PSYCH: A&O x 3 Nephrology Results - Labs Result Diagrams: 03/09/20 04:04 03/09/20 04:04 Lab results: WBC 8.1 thou/uL (4.8-10.8) 03/09/20 04:04 Hgb 12.0 g/dL (14.0-18.0) L 03/09/20 04:04 Hct 35.0 % (42.0-52.0) L 03/09/20 04:04 MCV 92.3 fL (78.0-98.0) 03/09/20 04:04 Plt Count 256 thou/uL (130-400) 03/09/20 04:04 Neutrophils % 77.6 % (42.0-75.0) H 03/09/20 04:04 Band Neuts % (Manual) 3 % (5-11) L 03/06/20 07:06 Sodium 132 mmol/L (136-145) L 03/09/20 04:04 Potassium 3.2 mmol/L (3.5-5.1) L 03/09/20 04:04 Chloride 90 mmol/L (98-107) L 03/09/20 04:04 Carbon Dioxide 30 mmol/L (23-31) 03/09/20 04:04 BUN 41 mg/dL (8.4-25.7) H 03/09/20 04:04 Creatinine 1.39 mg/dL (0.7-1.3) H 03/09/20 04:04 Glucose 108 mg/dL (83-110) 03/09/20 04:04 Lactic Acid 1.0 mmol/L (0.5-2.2) 03/04/20 23:11 Calcium 9.1 mg/dL (7.8-10.44) 03/09/20 04:04 Total Bilirubin 1.1 mg/dL (0.2-1.2) 03/05/20 06:21 AST 63 U/L (5-34) H 03/05/20 06:21 ALT 31 U/L (8-55) 03/05/20 06:21 Alkaline Phosphatase 75 U/L (40-110) 03/05/20 06:21 Ammonia Less than 12 umol/L (18-72) L 03/08/20 06:39 Troponin I 0.012 ng/mL (< 0.028) 03/04/20 10:56 B-Natriuretic Peptide 43.6 pg/mL (0-100) 03/06/20 07:06 Serum Total Protein 7.5 g/dL (5.8-8.1) 03/05/20 06:21 Albumin 4.1 g/dL (3.4-4.8) 03/09/20 04:04 Urine Ketones Negative mg/dL (Negative) 03/04/20 17:14 Urine Blood Negative (Negative) 03/04/20 17:14 Urine Nitrite Negative (Negative) 03/04/20 17:14 Ur Leukocyte Esterase Negative Buddy/uL (Negative) 03/04/20 17:14 Urine RBC None Seen HPF (0-3) 03/04/20 17:14 Urine WBC 0-3 HPF (0-3) 03/04/20 17:14 Ur Squamous Epith Cells None Seen HPF (0-3) 03/04/20 17:14 Urine Bacteria None Seen HPF (None Seen) 03/04/20 17:14 Sodium 132 mmol/L (136-145) L 03/09/20 04:04 Potassium 3.2 mmol/L (3.5-5.1) L 03/09/20 04:04 Chloride 90 mmol/L (98-107) L 03/09/20 04:04 Carbon Dioxide 30 mmol/L (23-31) 03/09/20 04:04 Anion Gap 15 mmol/L (10-20) 03/09/20 04:04 BUN 41 mg/dL (8.4-25.7) H 03/09/20 04:04 Creatinine 1.39 mg/dL (0.7-1.3) H 03/09/20 04:04 Glucose 108 mg/dL (83-110) 03/09/20 04:04 Calcium 9.1 mg/dL (7.8-10.44) 03/09/20 04:04 Phosphorus 2.2 mg/dL (2.3-4.7) L 03/09/20 04:04 Magnesium 2.2 mg/dL (1.6-2.6) 03/07/20 04:32 Albumin 4.1 g/dL (3.4-4.8) 03/09/20 04:04 Nephrology AP PN - Plan ASSESSMENT Acute kidney injury: Due to hemodynamic factors related acute CHF/Cardiorenal syndrome. Improved. Hyperkalemia: Due to potassium supplementation and acute kidney injury. Resolved Hypokalemia: due to diuretic therapy Acute on chronic diastolic heart failure: Hyponatremia Bilateral leg edema. Due to chronic venous insufficiency and diastolic heart failure. improved with diuretics Bilateral cellulitis of both lower extremities. Hypertension: Control is acceptable PAD and atherosclerosis of the lower extremities PLAN Restart diuretic therapy with oral torsemide and spironolactone. Replete serum potassium. Monitor intake and output. Follow renal function and electrolytes Elevate both lower extremities Avoid nephrotoxic agents continue other treatments.
--- NOTE | 2020-03-09 16:44 | PDOC.HOSPP ---
- Subjective Encounter Date: 03/09/20 Encounter Time: 09:00 Subjective: is sitting in his wheel chair, no sob lower extremity edema has come down but it still weeping at some places - Objective Vital Signs & Weight: Vital Signs (12 hours) Temp Pulse Resp BP Pulse Ox 03/09/20 15:11 98 F 89 20 129/84 92 L 03/09/20 14:49 87 20 03/09/20 12:09 96 18 128/81 95 03/09/20 07:10 97.7 F 87 20 97/54 L 97 Weight Admit Weight 255 lb 11.779 oz Weight 255 lb 11.779 oz I&O: 03/08/20 03/09/20 03/10/20 06:59 06:59 06:59 Intake Total 1800 1060 Output Total 2200 2150 Balance -400 -1090 Result Diagrams: 03/09/20 04:04 03/09/20 04:04 Hospitalist ROS - Medication Medications: Active Medications Generic Name Dose Route Start Last Admin Trade Name Freq PRN Reason Stop Dose Admin Acetaminophen 650 mg 03/04/20 15:20 03/04/20 22:21 Acetaminophen 325 Mg Tab PO 650 mg Q4H PRN Administration Headache/Fever/Mild Pain (1-3) Hydrocodone Bitart/Acetaminophen 1 tab 03/05/20 19:52 03/08/20 17:09 Hydrocodone/Acetaminophen 5/325 Mg Tablet PO 1 tab Q4H PRN Administration Moderate Pain (4-6) Hydrocodone Bitart/Acetaminophen 2 tab 03/05/20 19:52 03/07/20 05:26 Hydrocodone/Acetaminophen 5/325 Mg Tablet PO 2 tab Q4H PRN Administration Severe Pain (7-10) Albuterol/Ipratropium 3 ml 03/04/20 19:00 03/09/20 14:49 Ipratropium/Albuterol Sulfate 3 Ml Neb NEB 3 ml [id number] JAIME Administration Aspirin 81 mg 03/06/20 09:00 03/09/20 07:51 Aspirin 81 Mg Enteric Coated Tablet PO 81 mg DAILY JAIME Administration Budesonide 0.5 mg 03/04/20 18:30 03/09/20 04:38 Budesonide 0.5 Mg/2 Ml Neb NEB 0.5 mg BID-RT JAIME Administration Carvedilol 3.125 mg 03/05/20 21:00 03/09/20 07:51 Carvedilol 3.125 Mg Tab PO Not Given BID JAIME Famotidine 20 mg 03/05/20 09:00 03/09/20 07:51 Famotidine 20 Mg Tab PO 20 mg DAILY JAIME Administration Guaifenesin/Dextromethorphan 15 ml 03/04/20 15:20 03/06/20 12:53 Guaifenesin Dm 100-10/5 Ml Udcup PO 15 ml Q4H PRN Administration Cough Heparin Sodium (Porcine) 5,000 units 03/04/20 21:00 03/09/20 07:51 Heparin 5,000 Units/Ml Vial SC 5,000 units Q12HR JAIME Administration Cefepime HCl 1 gm/ Sodium 100 mls @ 200 mls/hr 03/04/20 22:00 03/09/20 10:36 Chloride IVPB 100 mls 1000,2200 JAIME Administration Pramipexole Dihydrochloride 0.5 mg 03/05/20 21:00 03/08/20 20:20 Pramipexole Di-Hcl 0.25 Mg Tab PO 0.5 mg HS JAIME Administration Prednisone 40 mg 03/06/20 09:00 03/09/20 07:51 Prednisone 20 Mg Tab PO 40 mg DAILY JAIME Administration Saccharomyces Boulardii 250 mg 03/05/20 09:00 03/09/20 07:52 Saccharomyces Boulardii 250 Mg Cap PO 250 mg DAILY JAIME Administration Sodium Chloride 0 ml 03/05/20 01:36 03/05/20 01:47 Sodium Chloride 0.65% Nasal 44 Ml Bot EA NARE 2 spr TIDPRN PRN Administration Nasal Congestion Sodium Chloride 10 ml 03/08/20 21:00 03/09/20 07:52 Flush - Normal Saline 10 Ml Syringe IVF 10 ml Q12HR JAIME Administration Spironolactone 25 mg 03/09/20 08:00 03/09/20 07:50 Spironolactone 25 Mg Tab PO Not Given QAM-WM JAIME Torsemide 20 mg 03/09/20 09:00 03/09/20 07:52 Torsemide 20 Mg Tab PO Not Given DAILY JAIME - Exam General Appearance: awake alert Eye: PERRL, anicteric sclera ENT: no oropharyngeal lesions, moist mucosa Neck: supple, no JVD Heart: RRR, no murmur Respiratory: no wheezes, no rales, rhonchi Gastrointestinal: soft, non-tender, non-distended, normal bowel sounds Extremities: no cyanosis, 2+ LE edema Extremities - other findings: has wrapping on both legs Neurological: cranial nerve grossly intact, no focal deficits Psychiatric: A&O x 3 Hosp A/P (1) Diastolic CHF, acute Code(s): I50.31 - ACUTE DIASTOLIC (CONGESTIVE) HEART FAILURE Status: Acute (2) Acute kidney failure Status: Acute Qualifiers: Acute renal failure type: unspecified Qualified Code(s): N17.9 - Acute kidney failure, unspecified (3) Hyponatremia Code(s): E87.1 - HYPO-OSMOLALITY AND HYPONATREMIA Status: Acute (4) Chronic respiratory failure with hypoxia, on home O2 therapy Code(s): J96.11 - CHRONIC RESPIRATORY FAILURE WITH HYPOXIA; Z99.81 - DEPENDENCE ON SUPPLEMENTAL OXYGEN Status: Chronic (5) COPD exacerbation Code(s): J44.1 - CHRONIC OBSTRUCTIVE PULMONARY DISEASE W (ACUTE) EXACERBATION Status: Acute (6) Cellulitis Code(s): L03.90 - CELLULITIS, UNSPECIFIED Status: Chronic Qualifiers: Site of cellulitis: extremity Site of cellulitis of extremity: lower extremity Laterality: unspecified laterality Qualified Code(s): L03.119 - Cellulitis of unspecified part of limb (7) Chronic back pain Code(s): M54.9 - DORSALGIA, UNSPECIFIED; G89.29 - OTHER CHRONIC PAIN Status: Chronic Qualifiers: Back pain location: low back pain (8) Dyslipidemia Code(s): E78.5 - HYPERLIPIDEMIA, UNSPECIFIED Status: Chronic (9) HTN (hypertension) Code(s): I10 - ESSENTIAL (PRIMARY) HYPERTENSION Status: Chronic Qualifiers: Hypertension type: essential hypertension Qualified Code(s): I10 - Essential (primary) hypertension (10) Obesity (BMI 30-39.9) Code(s): E66.9 - OBESITY, UNSPECIFIED Status: Chronic - Plan is on asp, coreg, cefepime, demadex, spironolactone, prednisone renal function is slowly improving along with gentle diuresis has amb around 40ft with rw and PT will taper steroids in am hemostable wound care for LE will need HH with PT and wound care for dc planning, lives in a trailer alone.
[2020-03-09] MEDS: Pramipexole Di-HCl 0.25 MG TAB PO SCH (21:00)
[2020-03-10] MEDS: Budesonide 0.5 MG/2 ML NEB NEB SCH ×2 (05:31→18:34)
[2020-03-10 05:54] LABS: Albumin 4.2 g/dL (3.4-4.8); Anion Gap 15 mmol/L (10-20); BUN (Urea Nitrogen) 37 mg/dL (8.4-25.7); BUN/Creatinine Ratio 34.26; Calc. Creatinine Clearance 94 mL/min (70-130); Calcium 9.3 mg/dL (7.8-10.44); Carbon Dioxide 27 mmol/L (23-31); Chloride 94 mmol/L (98-107); Glucose 89 mg/dL (83-110); Phosphorus 1.7 mg/dL (2.3-4.7); Potassium 3.2 mmol/L (3.5-5.1); Sodium 133 mmol/L (136-145)
[2020-03-10] MEDS ORDERED: Potassium Phosphate 30 MMOL in Sodium Chloride 0.9% 250 ML 250 ML IVPB SCH (07:15)
[2020-03-10] MEDS ORDERED: Electrolyte Replacement Protocol 1 EACH FS SCH (07:15)
[2020-03-10] MEDS: Spironolactone 25 MG TAB PO SCH (08:53)
[2020-03-10] MEDS: Famotidine 20 MG TAB PO SCH (08:53)
[2020-03-10] MEDS: Heparin 5,000 UNITS/ML VIAL SC SCH ×2 (08:53→21:34)
[2020-03-10] MEDS: Carvedilol 3.125 MG TAB PO SCH ×2 (08:53→21:33)
[2020-03-10] MEDS: Aspirin 81 mg Enteric Coated Tablet PO SCH (08:53)
[2020-03-10] MEDS: Saccharomyces boulardii 250 MG CAP PO SCH (08:54)
[2020-03-10] MEDS: predniSONE 20 MG TAB PO SCH (08:54)
[2020-03-10] MEDS: Torsemide 20 MG TAB PO SCH (08:54)
[2020-03-10] MEDS: Cefepime 1 GM in Sodium Chloride 0.9% 100 ML IVPB SCH (10:59)
--- NOTE | 2020-03-10 12:54 | PDOC.NEPPN ---
- Subjective Encounter Date: 03/10/20 Subjective: Still complaining of restless leg and insomnia. SOB has resolved. - Objective Vital Signs & Weight: Vital Signs (12 hours) Temp Pulse Resp BP BP Pulse Ox 03/10/20 08:40 98.2 F 86 18 119/61 96 03/10/20 03:00 98.6 F 85 18 112/61 95 03/10/20 02:39 98.0 F 77 18 123/75 95 Weight Admit Weight 255 lb 11.779 oz Weight 1.266 oz I&O: 03/09/20 03/10/20 03/11/20 06:59 06:59 06:59 Intake Total 1060 1220 Output Total 2150 1999 Balance -4273 -921 Result Diagrams: 03/09/20 04:04 03/10/20 04:29 Nephrology ROS - Medication Medications: Active Medications Generic Name Dose Route Start Last Admin Trade Name Freq PRN Reason Stop Dose Admin Acetaminophen 650 mg 03/04/20 15:20 03/04/20 22:21 Acetaminophen 325 Mg Tab PO 650 mg Q4H PRN Administration Headache/Fever/Mild Pain (1-3) Hydrocodone Bitart/Acetaminophen 1 tab 03/05/20 19:52 03/08/20 17:09 Hydrocodone/Acetaminophen 5/325 Mg Tablet PO 1 tab Q4H PRN Administration Moderate Pain (4-6) Hydrocodone Bitart/Acetaminophen 2 tab 03/05/20 19:52 03/07/20 05:26 Hydrocodone/Acetaminophen 5/325 Mg Tablet PO 2 tab Q4H PRN Administration Severe Pain (7-10) Albuterol/Ipratropium 3 ml 03/04/20 19:00 03/10/20 05:31 Ipratropium/Albuterol Sulfate 3 Ml Neb NEB Not Given [id number] JAIME Aspirin 81 mg 03/06/20 09:00 03/10/20 08:53 Aspirin 81 Mg Enteric Coated Tablet PO Not Given DAILY JAIME Budesonide 0.5 mg 03/04/20 18:30 03/10/20 05:31 Budesonide 0.5 Mg/2 Ml Neb NEB Not Given BID-RT JAIME Carvedilol 3.125 mg 03/05/20 21:00 03/10/20 08:53 Carvedilol 3.125 Mg Tab PO Not Given BID JAIME Famotidine 20 mg 03/05/20 09:00 03/10/20 08:53 Famotidine 20 Mg Tab PO Not Given DAILY JAIME Guaifenesin/Dextromethorphan 15 ml 03/04/20 15:20 03/06/20 12:53 Guaifenesin Dm 100-10/5 Ml Udcup PO 15 ml Q4H PRN Administration Cough Heparin Sodium (Porcine) 5,000 units 03/04/20 21:00 03/10/20 08:53 Heparin 5,000 Units/Ml Vial SC Not Given Q12HR JAIME Cefepime HCl 1 gm/ Sodium 100 mls @ 200 mls/hr 03/04/20 22:00 03/10/20 10:59 Chloride IVPB Not Given 1000,2200 JAIME Potassium Phosphate 30 mmol/ 260 mls @ 41.7 mls/hr 03/10/20 07:15 03/10/20 08:43 Sodium Chloride IVPB 03/10/20 13:30 260 mls NOW JAIME Administration Pramipexole Dihydrochloride 0.5 mg 03/05/20 21:00 03/09/20 21:00 Pramipexole Di-Hcl 0.25 Mg Tab PO Not Given HS JAIME Prednisone 40 mg 03/06/20 09:00 03/10/20 08:54 Prednisone 20 Mg Tab PO Not Given DAILY JAIME Saccharomyces Boulardii 250 mg 03/05/20 09:00 03/10/20 08:54 Saccharomyces Boulardii 250 Mg Cap PO Not Given DAILY [facility] Sodium Chloride 0 ml 03/05/20 01:36 03/05/20 01:47 Sodium Chloride 0.65% Nasal 44 Ml Bot EA NARE 2 spr TIDPRN PRN Administration Nasal Congestion Sodium Chloride 10 ml 03/08/20 21:00 03/10/20 08:54 Flush - Normal Saline 10 Ml Syringe IVF Not Given Q12HR JAIME Spironolactone 25 mg 03/09/20 08:00 03/10/20 08:53 Spironolactone 25 Mg Tab PO Not Given QAM-WM JAIME Torsemide 20 mg 03/09/20 09:00 03/10/20 08:54 Torsemide 20 Mg Tab PO Not Given DAILY JAIME - Exam General Appearance: awake alert Eye: anicteric sclera ENT: normocephalic atraumatic, moist mucosa Neck: symmetric, no JVD Respiratory: no wheezes, no ronchi, normal chest expansion, no tachypnea Respiratory - other findings: Fair air entry bilaterally with some transmitted sound Cardiovascular: RRR Gastrointestinal: soft, non-tender, non-distended, normal bowel sounds Gastrointestinal - other findings: obese Extremities - other findings: moderate bilateral leg edema Skin - other findings: chronic venous changes and ulcers with erythema noted Neurological: CN's grossly intact, no focal deficits PSYCH: A&O x 3 Nephrology Results - Labs Result Diagrams: 03/09/20 04:04 03/10/20 04:29 Lab results: WBC 8.1 thou/uL (4.8-10.8) 03/09/20 04:04 Hgb 12.0 g/dL (14.0-18.0) L 03/09/20 04:04 Hct 35.0 % (42.0-52.0) L 03/09/20 04:04 MCV 92.3 fL (78.0-98.0) 03/09/20 04:04 Plt Count 256 thou/uL (130-400) 03/09/20 04:04 Neutrophils % 77.6 % (42.0-75.0) H 03/09/20 04:04 Band Neuts % (Manual) 3 % (5-11) L 03/06/20 07:06 Sodium 133 mmol/L (136-145) L 03/10/20 04:29 Potassium 3.2 mmol/L (3.5-5.1) L 03/10/20 04:29 Chloride 94 mmol/L (98-107) L 03/10/20 04:29 Carbon Dioxide 27 mmol/L (23-31) 03/10/20 04:29 BUN 37 mg/dL (8.4-25.7) H 03/10/20 04:29 Creatinine 1.08 mg/dL (0.7-1.3) 03/10/20 04:29 Glucose 89 mg/dL (83-110) 03/10/20 04:29 Lactic Acid 1.0 mmol/L (0.5-2.2) 03/04/20 23:11 Calcium 9.3 mg/dL (7.8-10.44) 03/10/20 04:29 Total Bilirubin 1.1 mg/dL (0.2-1.2) 03/05/20 06:21 AST 63 U/L (5-34) H 03/05/20 06:21 ALT 31 U/L (8-55) 03/05/20 06:21 Alkaline Phosphatase 75 U/L (40-110) 03/05/20 06:21 Ammonia Less than 12 umol/L (18-72) L 03/08/20 06:39 Troponin I 0.012 ng/mL (< 0.028) 03/04/20 10:56 B-Natriuretic Peptide 43.6 pg/mL (0-100) 03/06/20 07:06 Serum Total Protein 7.5 g/dL (5.8-8.1) 03/05/20 06:21 Albumin 4.2 g/dL (3.4-4.8) 03/10/20 04:29 Urine Ketones Negative mg/dL (Negative) 03/04/20 17:14 Urine Blood Negative (Negative) 03/04/20 17:14 Urine Nitrite Negative (Negative) 03/04/20 17:14 Ur Leukocyte Esterase Negative Buddy/uL (Negative) 03/04/20 17:14 Urine RBC None Seen HPF (0-3) 03/04/20 17:14 Urine WBC 0-3 HPF (0-3) 03/04/20 17:14 Ur Squamous Epith Cells None Seen HPF (0-3) 03/04/20 17:14 Urine Bacteria None Seen HPF (None Seen) 03/04/20 17:14 Sodium 133 mmol/L (136-145) L 03/10/20 04:29 Potassium 3.2 mmol/L (3.5-5.1) L 03/10/20 04:29 Chloride 94 mmol/L (98-107) L 03/10/20 04:29 Carbon Dioxide 27 mmol/L (23-31) 03/10/20 04:29 Anion Gap 15 mmol/L (10-20) 03/10/20 04:29 BUN 37 mg/dL (8.4-25.7) H 03/10/20 04:29 Creatinine 1.08 mg/dL (0.7-1.3) 03/10/20 04:29 Glucose 89 mg/dL (83-110) 03/10/20 04:29 Calcium 9.3 mg/dL (7.8-10.44) 03/10/20 04:29 Phosphorus 1.7 mg/dL (2.3-4.7) L 03/10/20 04:29 Magnesium 2.2 mg/dL (1.6-2.6) 03/07/20 04:32 Albumin 4.2 g/dL (3.4-4.8) 03/10/20 04:29 Nephrology AP PN - Plan ASSESSMENT Acute kidney injury: Due to hemodynamic factors related acute CHF/Cardiorenal syndrome. Creat continue to trend down Hyperkalemia: Due to potassium supplementation and acute kidney injury. Resolved Hypokalemia: due to diuretic therapy Acute on chronic diastolic heart failure: Hyponatremia Bilateral leg edema. Due to chronic venous insufficiency and diastolic heart failure. improved with diuretics Bilateral cellulitis of both lower extremities. Hypertension: Control is acceptable PAD and atherosclerosis of the lower extremities RLS.? iron deficiency Hypophosphatemia PLAN Replete serum potassium and phosphorus with potassium phosphate infusion. Continue torsemide and spironolactone. Get iron chemistry in the am. Monitor intake and output. Follow renal function and electrolytes Elevate both lower extremities Avoid nephrotoxic agents continue other treatments.
--- NOTE | 2020-03-10 13:21 | PDOC.HOSPP ---
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 - Objective Vital Signs & Weight: Vital Signs (12 hours) Temp Pulse Resp BP BP Pulse Ox 03/10/20 08:40 98.2 F 86 18 119/61 96 03/10/20 03:00 98.6 F 85 18 112/61 95 03/10/20 02:39 98.0 F 77 18 123/75 95 Weight Admit Weight 255 lb 11.779 oz Weight 1.266 oz I&O: 03/09/20 03/10/20 03/11/20 06:59 06:59 06:59 Intake Total 1060 1220 Output Total 1140 5242 Balance -7461 -989 Result Diagrams: 03/09/20 04:04 03/10/20 04:29 Hospitalist ROS - Medication Medications: Active Medications Generic Name Dose Route Start Last Admin Trade Name Freq PRN Reason Stop Dose Admin Acetaminophen 650 mg 03/04/20 15:20 03/04/20 22:21 Acetaminophen 325 Mg Tab PO 650 mg Q4H PRN Administration Headache/Fever/Mild Pain (1-3) Hydrocodone Bitart/Acetaminophen 1 tab 03/05/20 19:52 03/08/20 17:09 Hydrocodone/Acetaminophen 5/325 Mg Tablet PO 1 tab Q4H PRN Administration Moderate Pain (4-6) Hydrocodone Bitart/Acetaminophen 2 tab 03/05/20 19:52 03/07/20 05:26 Hydrocodone/Acetaminophen 5/325 Mg Tablet PO 2 tab Q4H PRN Administration Severe Pain (7-10) Albuterol/Ipratropium 3 ml 03/04/20 19:00 03/10/20 05:31 Ipratropium/Albuterol Sulfate 3 Ml Neb NEB Not Given [id number] JAIME Aspirin 81 mg 03/06/20 09:00 03/10/20 08:53 Aspirin 81 Mg Enteric Coated Tablet PO Not Given DAILY JAIME Budesonide 0.5 mg 03/04/20 18:30 03/10/20 05:31 Budesonide 0.5 Mg/2 Ml Neb NEB Not Given BID-RT JAIME Carvedilol 3.125 mg 03/05/20 21:00 03/10/20 08:53 Carvedilol 3.125 Mg Tab PO Not Given BID JAIME Famotidine 20 mg 03/05/20 09:00 03/10/20 08:53 Famotidine 20 Mg Tab PO Not Given DAILY JAIME Guaifenesin/Dextromethorphan 15 ml 03/04/20 15:20 03/06/20 12:53 Guaifenesin Dm 100-10/5 Ml Udcup PO 15 ml Q4H PRN Administration Cough Heparin Sodium (Porcine) 5,000 units 03/04/20 21:00 03/10/20 08:53 Heparin 5,000 Units/Ml Vial SC Not Given Q12HR JAIME Cefepime HCl 1 gm/ Sodium 100 mls @ 200 mls/hr 03/04/20 22:00 03/10/20 10:59 Chloride IVPB Not Given 1000,2200 JAIEM Potassium Phosphate 30 mmol/ 260 mls @ 41.7 mls/hr 03/10/20 07:15 03/10/20 08:43 Sodium Chloride IVPB 03/10/20 13:30 260 mls NOW JAIME Administration Pramipexole Dihydrochloride 0.5 mg 03/05/20 21:00 03/09/20 21:00 Pramipexole Di-Hcl 0.25 Mg Tab PO Not Given HS JAIME Prednisone 40 mg 03/06/20 09:00 03/10/20 08:54 Prednisone 20 Mg Tab PO Not Given DAILY JAIME Saccharomyces Boulardii 250 mg 03/05/20 09:00 03/10/20 08:54 Saccharomyces Boulardii 250 Mg Cap PO Not Given DAILY [facility] Sodium Chloride 0 ml 03/05/20 01:36 03/05/20 01:47 Sodium Chloride 0.65% Nasal 44 Ml Bot EA NARE 2 spr TIDPRN PRN Administration Nasal Congestion Sodium Chloride 10 ml 03/08/20 21:00 03/10/20 08:54 Flush - Normal Saline 10 Ml Syringe IVF Not Given Q12HR JAIME Spironolactone 25 mg 03/09/20 08:00 03/10/20 08:53 Spironolactone 25 Mg Tab PO Not Given QAM-WM JAIME Torsemide 20 mg 03/09/20 09:00 03/10/20 08:54 Torsemide 20 Mg Tab PO Not Given DAILY JAIME - Exam General Appearance: awake alert Eye: anicteric sclera ENT: no oropharyngeal lesions, moist mucosa Neck: supple, no JVD Heart: RRR, no murmur Respiratory: no wheezes, no ronchi, rales Gastrointestinal: soft, non-tender, non-distended, normal bowel sounds Extremities: no cyanosis, 2+ LE edema Extremities - other findings: has erythema in b/l leg areas Neurological: cranial nerve grossly intact, no focal deficits Psychiatric: A&O x 3 Hosp A/P (1) Diastolic CHF, acute Code(s): I50.31 - ACUTE DIASTOLIC (CONGESTIVE) HEART FAILURE Status: Acute (2) Acute kidney failure Status: Acute Qualifiers: Acute renal failure type: unspecified Qualified Code(s): N17.9 - Acute kidney failure, unspecified (3) Hyponatremia Code(s): E87.1 - HYPO-OSMOLALITY AND HYPONATREMIA Status: Acute (4) Chronic respiratory failure with hypoxia, on home O2 therapy Code(s): J96.11 - CHRONIC RESPIRATORY FAILURE WITH HYPOXIA; Z99.81 - DEPENDENCE ON SUPPLEMENTAL OXYGEN Status: Chronic (5) COPD exacerbation Code(s): J44.1 - CHRONIC OBSTRUCTIVE PULMONARY DISEASE W (ACUTE) EXACERBATION Status: Resolved (6) Cellulitis Code(s): L03.90 - CELLULITIS, UNSPECIFIED Status: Acute Qualifiers: Site of cellulitis: extremity Site of cellulitis of extremity: lower extremity Laterality: unspecified laterality Qualified Code(s): L03.119 - Cellulitis of unspecified part of limb (7) Chronic back pain Code(s): M54.9 - DORSALGIA, UNSPECIFIED; G89.29 - OTHER CHRONIC PAIN Status: Chronic Qualifiers: Back pain location: low back pain (8) Dyslipidemia Code(s): E78.5 - HYPERLIPIDEMIA, UNSPECIFIED Status: Chronic (9) HTN (hypertension) Code(s): I10 - ESSENTIAL (PRIMARY) HYPERTENSION Status: Chronic Qualifiers: Hypertension type: essential hypertension Qualified Code(s): I10 - Essential (primary) hypertension (10) Obesity (BMI 30-39.9) Code(s): E66.9 - OBESITY, UNSPECIFIED Status: Chronic - Plan is on asp, coreg, cefepime, demadex, spironolactone, prednisone renal function is slowly improving along with gentle diuresis has amb around 40ft with rw and PT taper steroids hemostable wound care for LE will need swing bed for dc planning tx to medical floor he is on pramipexole qHS for restless legs needs to wear jarrod hose while upright to reduce edema in his legs
[2020-03-10] MEDS: Pramipexole Di-HCl 0.25 MG TAB PO SCH (21:33)
[2020-03-10] MEDS: Cephalexin 250 MG CAP PO SCH (21:34)
[2020-03-10] MEDS: Guaifenesin DM 100-10/5 ML UDCUP PO PRN (21:44)
[2020-03-10] MEDS: HYDROcodone/Acetaminophen 5/325 mg Tablet PO PRN (21:46)
[2020-03-11 07:26] LABS: Iron Binding Capacity, Total 325 mcg/dL (261-462)
[2020-03-11 07:27] LABS: Iron 53 ug/dL (65-175)
[2020-03-11] MEDS: Famotidine 20 MG TAB PO SCH (08:08)
[2020-03-11] MEDS: Carvedilol 3.125 MG TAB PO SCH ×2 (08:08→20:57)
[2020-03-11] MEDS: Torsemide 20 MG TAB PO SCH (08:08)
[2020-03-11] MEDS: Saccharomyces boulardii 250 MG CAP PO SCH (08:08)
[2020-03-11] MEDS: Aspirin 81 mg Enteric Coated Tablet PO SCH (08:08)
[2020-03-11] MEDS: Spironolactone 25 MG TAB PO SCH (08:08)
[2020-03-11] MEDS: Cephalexin 250 MG CAP PO SCH ×3 (08:09→20:57)
[2020-03-11] MEDS: Heparin 5,000 UNITS/ML VIAL SC SCH ×2 (08:10→20:57)
[2020-03-11 08:57] LABS: Albumin 4.1 g/dL (3.4-4.8); Anion Gap 16 mmol/L (10-20); BUN (Urea Nitrogen) 32 mg/dL (8.4-25.7); BUN/Creatinine Ratio 30.19; Calc. Creatinine Clearance 0 mL/min (70-130); Calcium 9.4 mg/dL (7.8-10.44); Carbon Dioxide 25 mmol/L (23-31); Chloride 94 mmol/L (98-107); Glucose 100 mg/dL (83-110); Potassium 3.2 mmol/L (3.5-5.1); Sodium 132 mmol/L (136-145)
[2020-03-11 09:08] LABS: Phosphorus 1.9 mg/dL (2.3-4.7)
[2020-03-11] MEDS: Budesonide 0.5 MG/2 ML NEB NEB SCH ×2 (11:50→18:51)
[2020-03-11] MEDS: Guaifenesin DM 100-10/5 ML UDCUP PO PRN (14:06)
[2020-03-11] MEDS ORDERED: Potassium Chloride 20 MEQ TAB PO SCH (14:15)
[2020-03-11] MEDS: PHOS-NAK 1 PKT PACK PO SCH ×2 (14:36→17:20)
--- NOTE | 2020-03-11 15:12 | PDOC.NEPPN ---
- Subjective Encounter Date: 03/11/20 Subjective: Feeling better. Ambulating more. Still complaining about the food. - Objective Vital Signs & Weight: Vital Signs (12 hours) Temp Pulse Resp BP Pulse Ox 03/11/20 09:34 93 L 03/11/20 09:31 98.4 F 86 20 127/73 93 L 03/11/20 07:16 98.4 F 86 20 127/73 93 L 03/11/20 04:00 97.7 F 83 20 127/78 94 L Weight Admit Weight 255 lb 11.779 oz Weight 1.266 oz I&O: 03/10/20 03/11/20 03/12/20 06:59 06:59 06:59 Intake Total 1220 1080 Output Total 1999 1125 Balance -780 -45 Result Diagrams: 03/09/20 04:04 03/11/20 06:39 Nephrology ROS - Medication Medications: Active Medications Generic Name Dose Route Start Last Admin Trade Name Freq PRN Reason Stop Dose Admin Acetaminophen 650 mg 03/04/20 15:20 03/04/20 22:21 Acetaminophen 325 Mg Tab PO 650 mg Q4H PRN Administration Headache/Fever/Mild Pain (1-3) Hydrocodone Bitart/Acetaminophen 1 tab 03/05/20 19:52 03/08/20 17:09 Hydrocodone/Acetaminophen 5/325 Mg Tablet PO 1 tab Q4H PRN Administration Moderate Pain (4-6) Hydrocodone Bitart/Acetaminophen 2 tab 03/05/20 19:52 03/10/20 21:46 Hydrocodone/Acetaminophen 5/325 Mg Tablet PO 2 tab Q4H PRN Administration Severe Pain (7-10) Albuterol/Ipratropium 3 ml 03/04/20 19:00 03/11/20 14:33 Ipratropium/Albuterol Sulfate 3 Ml Neb NEB Not Given [id number] JAIME Aspirin 81 mg 03/06/20 09:00 03/11/20 08:08 Aspirin 81 Mg Enteric Coated Tablet PO 81 mg DAILY JAIME Administration Budesonide 0.5 mg 03/04/20 18:30 03/11/20 11:50 Budesonide 0.5 Mg/2 Ml Neb NEB Not Given BID-RT JAIME Carvedilol 3.125 mg 03/05/20 21:00 03/11/20 08:08 Carvedilol 3.125 Mg Tab PO 3.125 mg BID JAIME Administration Cephalexin 500 mg 03/10/20 21:00 03/11/20 14:06 Cephalexin 250 Mg Cap PO 500 mg TID JAIME Administration Famotidine 20 mg 03/05/20 09:00 03/11/20 08:08 Famotidine 20 Mg Tab PO 20 mg DAILY JAIME Administration Guaifenesin/Dextromethorphan 15 ml 03/04/20 15:20 03/11/20 14:06 Guaifenesin Dm 100-10/5 Ml Udcup PO 15 ml Q4H PRN Administration Cough Heparin Sodium (Porcine) 5,000 units 03/04/20 21:00 03/11/20 08:10 Heparin 5,000 Units/Ml Vial SC 5,000 units Q12HR JAIME Administration Miscellaneous Medication 2 pkt 03/11/20 14:15 03/11/20 14:36 Phos-Nak 1 Pkt Pack PO 03/11/20 18:16 2 pkt Q4H JAIME Administration Pramipexole Dihydrochloride 0.5 mg 03/05/20 21:00 03/10/20 21:33 Pramipexole Di-Hcl 0.25 Mg Tab PO 0.5 mg HS JAIME Administration Saccharomyces Boulardii 250 mg 03/05/20 09:00 03/11/20 08:08 Saccharomyces Boulardii 250 Mg Cap PO 250 mg DAILY JAIME Administration Senna/Docusate Sodium 2 tab 03/04/20 15:20 03/11/20 11:30 Senokot S 8.6-50 Mg Tab PO 2 tab BID PRN Administration Constipation Sodium Chloride 0 ml 03/05/20 01:36 03/05/20 01:47 Sodium Chloride 0.65% Nasal 44 Ml Bot EA NARE 2 spr TIDPRN PRN Administration Nasal Congestion Sodium Chloride 10 ml 03/08/20 21:00 03/11/20 08:09 Flush - Normal Saline 10 Ml Syringe IVF Not Given Q12HR JAIME Spironolactone 25 mg 03/09/20 08:00 03/11/20 08:08 Spironolactone 25 Mg Tab PO 25 mg QAM-WM JAIME Administration Torsemide 20 mg 03/09/20 09:00 03/11/20 08:08 Torsemide 20 Mg Tab PO 20 mg DAILY JAIME Administration - Exam General Appearance: awake alert Eye: anicteric sclera ENT: normocephalic atraumatic Neck: symmetric, no JVD Respiratory: no wheezes, no rales, no ronchi, normal chest expansion, no tachypnea Cardiovascular: RRR Gastrointestinal: non-tender, non-distended, normal bowel sounds Gastrointestinal - other findings: obese Extremities - other findings: moderate bilateral edema Skin - other findings: bilateral chronic venous stasis changes with ulcers and erythema Neurological: CN's grossly intact, no focal deficits PSYCH: A&O x 3 Nephrology Results - Labs Result Diagrams: 03/09/20 04:04 03/11/20 06:39 Lab results: WBC 8.1 thou/uL (4.8-10.8) 03/09/20 04:04 Hgb 12.0 g/dL (14.0-18.0) L 03/09/20 04:04 Hct 35.0 % (42.0-52.0) L 03/09/20 04:04 MCV 92.3 fL (78.0-98.0) 03/09/20 04:04 Plt Count 256 thou/uL (130-400) 03/09/20 04:04 Neutrophils % 77.6 % (42.0-75.0) H 03/09/20 04:04 Band Neuts % (Manual) 3 % (5-11) L 03/06/20 07:06 Sodium 132 mmol/L (136-145) L 03/11/20 06:39 Potassium 3.2 mmol/L (3.5-5.1) L 03/11/20 06:39 Chloride 94 mmol/L (98-107) L 03/11/20 06:39 Carbon Dioxide 25 mmol/L (23-31) 03/11/20 06:39 BUN 32 mg/dL (8.4-25.7) H 03/11/20 06:39 Creatinine 1.06 mg/dL (0.7-1.3) 03/11/20 06:39 Glucose 100 mg/dL (83-110) 03/11/20 06:39 Lactic Acid 1.0 mmol/L (0.5-2.2) 03/04/20 23:11 Calcium 9.4 mg/dL (7.8-10.44) 03/11/20 06:39 Total Bilirubin 1.1 mg/dL (0.2-1.2) 03/05/20 06:21 AST 63 U/L (5-34) H 03/05/20 06:21 ALT 31 U/L (8-55) 03/05/20 06:21 Alkaline Phosphatase 75 U/L (40-110) 03/05/20 06:21 Ammonia Less than 12 umol/L (18-72) L 03/08/20 06:39 Troponin I 0.012 ng/mL (< 0.028) 03/04/20 10:56 B-Natriuretic Peptide 43.6 pg/mL (0-100) 03/06/20 07:06 Serum Total Protein 7.5 g/dL (5.8-8.1) 03/05/20 06:21 Albumin 4.1 g/dL (3.4-4.8) 03/11/20 06:39 Urine Ketones Negative mg/dL (Negative) 03/04/20 17:14 Urine Blood Negative (Negative) 03/04/20 17:14 Urine Nitrite Negative (Negative) 03/04/20 17:14 Ur Leukocyte Esterase Negative Buddy/uL (Negative) 03/04/20 17:14 Urine RBC None Seen HPF (0-3) 03/04/20 17:14 Urine WBC 0-3 HPF (0-3) 03/04/20 17:14 Ur Squamous Epith Cells None Seen HPF (0-3) 03/04/20 17:14 Urine Bacteria None Seen HPF (None Seen) 03/04/20 17:14 Sodium 132 mmol/L (136-145) L 03/11/20 06:39 Potassium 3.2 mmol/L (3.5-5.1) L 03/11/20 06:39 Chloride 94 mmol/L (98-107) L 03/11/20 06:39 Carbon Dioxide 25 mmol/L (23-31) 03/11/20 06:39 Anion Gap 16 mmol/L (10-20) 03/11/20 06:39 BUN 32 mg/dL (8.4-25.7) H 03/11/20 06:39 Creatinine 1.06 mg/dL (0.7-1.3) 03/11/20 06:39 Glucose 100 mg/dL (83-110) 03/11/20 06:39 Calcium 9.4 mg/dL (7.8-10.44) 03/11/20 06:39 Phosphorus 1.9 mg/dL (2.3-4.7) L 03/11/20 06:39 Magnesium 2.2 mg/dL (1.6-2.6) 03/07/20 04:32 Albumin 4.1 g/dL (3.4-4.8) 03/11/20 06:39 Nephrology AP PN - Plan ASSESSMENT Acute kidney injury: Due to hemodynamic factors related acute CHF/Cardiorenal syndrome. Creat continue to trend down Hyperkalemia: Due to potassium supplementation and acute kidney injury. Resolved Hypokalemia: due to diuretic therapy Acute on chronic diastolic heart failure: Hyponatremia Bilateral leg edema. Due to chronic venous insufficiency and diastolic heart failure. improved with diuretics Bilateral cellulitis of both lower extremities. Hypertension: Control is acceptable PAD and atherosclerosis of the lower extremities Hypophosphatemia. persistent PLAN Replete serum potassium and phosphorus Continue torsemide and spironolactone. Monitor intake and output. Follow renal function and electrolytes Elevate both lower extremities Avoid nephrotoxic agents continue other treatments. Can be discharged from nephrology point of view.
--- NOTE | 2020-03-11 15:32 | PDOC.HOSPP ---
- Subjective Encounter Date: 03/11/20 Encounter Time: 10:25 Subjective: no sob, has dry cough feels better - Objective Vital Signs & Weight: Vital Signs (12 hours) Temp Pulse Resp BP Pulse Ox 03/11/20 09:34 93 L 03/11/20 09:31 98.4 F 86 20 127/73 93 L 03/11/20 07:16 98.4 F 86 20 127/73 93 L 03/11/20 04:00 97.7 F 83 20 127/78 94 L Weight Admit Weight 255 lb 11.779 oz Weight 1.266 oz I&O: 03/10/20 03/11/20 03/12/20 06:59 06:59 06:59 Intake Total 1220 1080 Output Total 1999 1125 Balance -780 -45 Result Diagrams: 03/09/20 04:04 03/11/20 06:39 Hospitalist ROS - Medication Medications: Active Medications Generic Name Dose Route Start Last Admin Trade Name Freq PRN Reason Stop Dose Admin Acetaminophen 650 mg 03/04/20 15:20 03/04/20 22:21 Acetaminophen 325 Mg Tab PO 650 mg Q4H PRN Administration Headache/Fever/Mild Pain (1-3) Hydrocodone Bitart/Acetaminophen 1 tab 03/05/20 19:52 03/08/20 17:09 Hydrocodone/Acetaminophen 5/325 Mg Tablet PO 1 tab Q4H PRN Administration Moderate Pain (4-6) Hydrocodone Bitart/Acetaminophen 2 tab 03/05/20 19:52 03/10/20 21:46 Hydrocodone/Acetaminophen 5/325 Mg Tablet PO 2 tab Q4H PRN Administration Severe Pain (7-10) Albuterol/Ipratropium 3 ml 03/04/20 19:00 03/11/20 14:33 Ipratropium/Albuterol Sulfate 3 Ml Neb NEB Not Given [id number] JAIME Aspirin 81 mg 03/06/20 09:00 03/11/20 08:08 Aspirin 81 Mg Enteric Coated Tablet PO 81 mg DAILY JAIME Administration Budesonide 0.5 mg 03/04/20 18:30 03/11/20 11:50 Budesonide 0.5 Mg/2 Ml Neb NEB Not Given BID-RT JAIME Carvedilol 3.125 mg 03/05/20 21:00 03/11/20 08:08 Carvedilol 3.125 Mg Tab PO 3.125 mg BID JAIME Administration Cephalexin 500 mg 03/10/20 21:00 03/11/20 14:06 Cephalexin 250 Mg Cap PO 500 mg TID JAIME Administration Famotidine 20 mg 03/05/20 09:00 03/11/20 08:08 Famotidine 20 Mg Tab PO 20 mg DAILY JAIME Administration Guaifenesin/Dextromethorphan 15 ml 03/04/20 15:20 03/11/20 14:06 Guaifenesin Dm 100-10/5 Ml Udcup PO 15 ml Q4H PRN Administration Cough Heparin Sodium (Porcine) 5,000 units 03/04/20 21:00 03/11/20 08:10 Heparin 5,000 Units/Ml Vial SC 5,000 units Q12HR JAIME Administration Miscellaneous Medication 2 pkt 03/11/20 14:15 03/11/20 14:36 Phos-Nak 1 Pkt Pack PO 03/11/20 18:16 2 pkt Q4H JAIME Administration Pramipexole Dihydrochloride 0.5 mg 03/05/20 21:00 03/10/20 21:33 Pramipexole Di-Hcl 0.25 Mg Tab PO 0.5 mg HS JAIME Administration Saccharomyces Boulardii 250 mg 03/05/20 09:00 03/11/20 08:08 Saccharomyces Boulardii 250 Mg Cap PO 250 mg DAILY JAIME Administration Senna/Docusate Sodium 2 tab 03/04/20 15:20 03/11/20 11:30 Senokot S 8.6-50 Mg Tab PO 2 tab BID PRN Administration Constipation Sodium Chloride 0 ml 03/05/20 01:36 03/05/20 01:47 Sodium Chloride 0.65% Nasal 44 Ml Bot EA NARE 2 spr TIDPRN PRN Administration Nasal Congestion Sodium Chloride 10 ml 03/08/20 21:00 03/11/20 08:09 Flush - Normal Saline 10 Ml Syringe IVF Not Given Q12HR JAIME Spironolactone 25 mg 03/09/20 08:00 03/11/20 08:08 Spironolactone 25 Mg Tab PO 25 mg QAM-WM JAIME Administration Torsemide 20 mg 03/09/20 09:00 03/11/20 08:08 Torsemide 20 Mg Tab PO 20 mg DAILY JAIME Administration - Exam General Appearance: awake alert Eye: PERRL, anicteric sclera ENT: no oropharyngeal lesions, moist mucosa Neck: supple, no JVD Heart: RRR, no murmur Respiratory: no wheezes, no rales, rhonchi Gastrointestinal: soft, non-tender, non-distended, normal bowel sounds Extremities: no cyanosis, 1+ LE edema Neurological: cranial nerve grossly intact, no focal deficits Psychiatric: normal affect, A&O x 3 Hosp A/P (1) Diastolic CHF, acute Code(s): I50.31 - ACUTE DIASTOLIC (CONGESTIVE) HEART FAILURE Status: Acute (2) Acute kidney failure Status: Resolved Qualifiers: Acute renal failure type: unspecified Qualified Code(s): N17.9 - Acute kidney failure, unspecified (3) Hyponatremia Code(s): E87.1 - HYPO-OSMOLALITY AND HYPONATREMIA Status: Resolved (4) Chronic respiratory failure with hypoxia, on home O2 therapy Code(s): J96.11 - CHRONIC RESPIRATORY FAILURE WITH HYPOXIA; Z99.81 - DEPENDENCE ON SUPPLEMENTAL OXYGEN Status: Chronic (5) COPD exacerbation Code(s): J44.1 - CHRONIC OBSTRUCTIVE PULMONARY DISEASE W (ACUTE) EXACERBATION Status: Resolved (6) Cellulitis Code(s): L03.90 - CELLULITIS, UNSPECIFIED Status: Acute Qualifiers: Site of cellulitis: extremity Site of cellulitis of extremity: lower extremity Laterality: unspecified laterality Qualified Code(s): L03.119 - Cellulitis of unspecified part of limb (7) Chronic back pain Code(s): M54.9 - DORSALGIA, UNSPECIFIED; G89.29 - OTHER CHRONIC PAIN Status: Chronic Qualifiers: Back pain location: low back pain (8) Dyslipidemia Code(s): E78.5 - HYPERLIPIDEMIA, UNSPECIFIED Status: Chronic (9) HTN (hypertension) Code(s): I10 - ESSENTIAL (PRIMARY) HYPERTENSION Status: Chronic Qualifiers: Hypertension type: essential hypertension Qualified Code(s): I10 - Essential (primary) hypertension (10) Obesity (BMI 30-39.9) Code(s): E66.9 - OBESITY, UNSPECIFIED Status: Chronic - Plan is on asp, coreg, keflex, demadex, spironolactone. renal function is slowly improving along with gentle diuresis has amb around 40ft with rw and PT hemostable wound care for LE May dc anytime to swing bed if accepted he is on pramipexole qHS for restless legs needs to wear ajrrod hose while upright to reduce edema in his legs
[2020-03-11] MEDS: HYDROcodone/Acetaminophen 5/325 mg Tablet PO PRN ×2 (17:19→20:57)
[2020-03-11] MEDS: Pramipexole Di-HCl 0.25 MG TAB PO SCH (20:58)
[2020-03-12] MEDS: HYDROcodone/Acetaminophen 5/325 mg Tablet PO PRN ×2 (03:44→09:53)
[2020-03-12 07:27] VITALS: TEMP 98.6
[2020-03-12] MEDS: Budesonide 0.5 MG/2 ML NEB NEB SCH (07:28)
[2020-03-12 07:52] LABS: Anion Gap 14 mmol/L (10-20); BUN (Urea Nitrogen) 34 mg/dL (8.4-25.7); Calc. Creatinine Clearance 0 mL/min (70-130); Calcium 9.3 mg/dL (7.8-10.44); Carbon Dioxide 30 mmol/L (23-31); Chloride 94 mmol/L (98-107); Glucose 95 mg/dL (83-110); Phosphorus 2.5 mg/dL (2.3-4.7); Potassium 3.5 mmol/L (3.5-5.1); Sodium 134 mmol/L (136-145)
[2020-03-12] MEDS: Saccharomyces boulardii 250 MG CAP PO SCH (08:03)
[2020-03-12] MEDS: Cephalexin 250 MG CAP PO SCH (08:03)
[2020-03-12] MEDS: Aspirin 81 mg Enteric Coated Tablet PO SCH (08:03)
[2020-03-12] MEDS: Carvedilol 3.125 MG TAB PO SCH (08:03)
[2020-03-12] MEDS: Torsemide 20 MG TAB PO SCH (08:03)
[2020-03-12] MEDS: Famotidine 20 MG TAB PO SCH (08:04)
[2020-03-12] MEDS: Heparin 5,000 UNITS/ML VIAL SC SCH (08:04)
[2020-03-12] MEDS: Spironolactone 25 MG TAB PO SCH (08:04)
[2020-03-12] MEDS ORDERED: Potassium Chloride 20 MEQ TAB PO SCH (09:45)
--- NOTE | 2020-03-12 11:47 | PDOC.NEPPN ---
- Subjective Encounter Date: 03/12/20 Subjective: No new problem. Feeling better. - Objective Vital Signs & Weight: Vital Signs (12 hours) Temp Pulse Resp BP Pulse Ox 03/12/20 08:00 94 L 03/12/20 07:28 85 14 94 L 03/12/20 07:27 98.6 F 87 16 120/75 95 03/12/20 01:39 82 12 95 Weight Admit Weight 255 lb 11.779 oz Weight 1.266 oz I&O: 03/11/20 03/12/20 03/13/20 06:59 06:59 06:59 Intake Total 1080 1690 Output Total 1125 1600 Balance -45 90 Result Diagrams: 03/09/20 04:04 03/12/20 07:09 Nephrology ROS - Medication Medications: Active Medications Generic Name Dose Route Start Last Admin Trade Name Freq PRN Reason Stop Dose Admin Acetaminophen 650 mg 03/04/20 15:20 03/04/20 22:21 Acetaminophen 325 Mg Tab PO 650 mg Q4H PRN Administration Headache/Fever/Mild Pain (1-3) Hydrocodone Bitart/Acetaminophen 1 tab 03/05/20 19:52 03/08/20 17:09 Hydrocodone/Acetaminophen 5/325 Mg Tablet PO 1 tab Q4H PRN Administration Moderate Pain (4-6) Hydrocodone Bitart/Acetaminophen 2 tab 03/05/20 19:52 03/12/20 09:53 Hydrocodone/Acetaminophen 5/325 Mg Tablet PO 2 tab Q4H PRN Administration Severe Pain (7-10) Albuterol/Ipratropium 3 ml 03/04/20 19:00 03/12/20 07:30 Ipratropium/Albuterol Sulfate 3 Ml Neb NEB 3 ml [id number] JAIME Administration Aspirin 81 mg 03/06/20 09:00 03/12/20 08:03 Aspirin 81 Mg Enteric Coated Tablet PO 81 mg DAILY JAIME Administration Budesonide 0.5 mg 03/04/20 18:30 03/12/20 07:28 Budesonide 0.5 Mg/2 Ml Neb NEB 0.5 mg BID-RT JAIME Administration Carvedilol 3.125 mg 03/05/20 21:00 03/12/20 08:03 Carvedilol 3.125 Mg Tab PO 3.125 mg BID JAIME Administration Cephalexin 500 mg 03/10/20 21:00 03/12/20 08:03 Cephalexin 250 Mg Cap PO 500 mg TID JAIME Administration Famotidine 20 mg 03/05/20 09:00 03/12/20 08:04 Famotidine 20 Mg Tab PO 20 mg DAILY JAIME Administration Guaifenesin/Dextromethorphan 15 ml 03/04/20 15:20 03/11/20 14:06 Guaifenesin Dm 100-10/5 Ml Udcup PO 15 ml Q4H PRN Administration Cough Heparin Sodium (Porcine) 5,000 units 03/04/20 21:00 03/12/20 08:04 Heparin 5,000 Units/Ml Vial SC 5,000 units Q12HR JAIME Administration Potassium Chloride 40 meq 03/12/20 09:45 03/12/20 09:52 Potassium Chloride 20 Meq Tab PO 03/12/20 14:00 40 meq NOW JAIME Administration Pramipexole Dihydrochloride 0.5 mg 03/05/20 21:00 03/11/20 20:58 Pramipexole Di-Hcl 0.25 Mg Tab PO 0.5 mg HS JAIME Administration Saccharomyces Boulardii 250 mg 03/05/20 09:00 03/12/20 08:03 Saccharomyces Boulardii 250 Mg Cap PO 250 mg DAILY JAIME Administration Senna/Docusate Sodium 2 tab 03/04/20 15:20 03/11/20 11:30 Senokot S 8.6-50 Mg Tab PO 2 tab BID PRN Administration Constipation Sodium Chloride 0 ml 03/05/20 01:36 03/05/20 01:47 Sodium Chloride 0.65% Nasal 44 Ml Bot EA NARE 2 spr TIDPRN PRN Administration Nasal Congestion Sodium Chloride 10 ml 03/08/20 21:00 03/12/20 08:05 Flush - Normal Saline 10 Ml Syringe IVF Not Given Q12HR JAIME Spironolactone 25 mg 03/09/20 08:00 03/12/20 08:04 Spironolactone 25 Mg Tab PO 25 mg QAM-WM JAIME Administration Torsemide 20 mg 03/09/20 09:00 03/12/20 08:03 Torsemide 20 Mg Tab PO 20 mg DAILY JAIME Administration - Exam General Appearance: awake alert Eye: anicteric sclera ENT: normocephalic atraumatic, moist mucosa Neck: symmetric, no JVD Respiratory: no wheezes, no rales, no ronchi, normal chest expansion Cardiovascular: RRR Gastrointestinal: soft, non-tender, non-distended, normal bowel sounds Extremities - other findings: mild to moderate edema of legs with stasis changes and ulers/erythrasma Neurological: CN's grossly intact PSYCH: A&O x 3 Nephrology Results - Labs Result Diagrams: 03/09/20 04:04 03/12/20 07:09 Lab results: WBC 8.1 thou/uL (4.8-10.8) 03/09/20 04:04 Hgb 12.0 g/dL (14.0-18.0) L 03/09/20 04:04 Hct 35.0 % (42.0-52.0) L 03/09/20 04:04 MCV 92.3 fL (78.0-98.0) 03/09/20 04:04 Plt Count 256 thou/uL (130-400) 03/09/20 04:04 Neutrophils % 77.6 % (42.0-75.0) H 03/09/20 04:04 Band Neuts % (Manual) 3 % (5-11) L 03/06/20 07:06 Sodium 134 mmol/L (136-145) L 03/12/20 07:09 Potassium 3.5 mmol/L (3.5-5.1) 03/12/20 07:09 Chloride 94 mmol/L (98-107) L 03/12/20 07:09 Carbon Dioxide 30 mmol/L (23-31) 03/12/20 07:09 BUN 34 mg/dL (8.4-25.7) H 03/12/20 07:09 Creatinine 1.12 mg/dL (0.7-1.3) 03/12/20 07:09 Glucose 95 mg/dL (83-110) 03/12/20 07:09 Lactic Acid 1.0 mmol/L (0.5-2.2) 03/04/20 23:11 Calcium 9.3 mg/dL (7.8-10.44) 03/12/20 07:09 Total Bilirubin 1.1 mg/dL (0.2-1.2) 03/05/20 06:21 AST 63 U/L (5-34) H 03/05/20 06:21 ALT 31 U/L (8-55) 03/05/20 06:21 Alkaline Phosphatase 75 U/L (40-110) 03/05/20 06:21 Ammonia Less than 12 umol/L (18-72) L 03/08/20 06:39 Troponin I 0.012 ng/mL (< 0.028) 03/04/20 10:56 B-Natriuretic Peptide 43.6 pg/mL (0-100) 03/06/20 07:06 Serum Total Protein 7.5 g/dL (5.8-8.1) 03/05/20 06:21 Albumin 4.1 g/dL (3.4-4.8) 03/11/20 06:39 Urine Ketones Negative mg/dL (Negative) 03/04/20 17:14 Urine Blood Negative (Negative) 03/04/20 17:14 Urine Nitrite Negative (Negative) 03/04/20 17:14 Ur Leukocyte Esterase Negative Buddy/uL (Negative) 03/04/20 17:14 Urine RBC None Seen HPF (0-3) 03/04/20 17:14 Urine WBC 0-3 HPF (0-3) 03/04/20 17:14 Ur Squamous Epith Cells None Seen HPF (0-3) 03/04/20 17:14 Urine Bacteria None Seen HPF (None Seen) 03/04/20 17:14 Sodium 134 mmol/L (136-145) L 03/12/20 07:09 Potassium 3.5 mmol/L (3.5-5.1) 03/12/20 07:09 Chloride 94 mmol/L (98-107) L 03/12/20 07:09 Carbon Dioxide 30 mmol/L (23-31) 03/12/20 07:09 Anion Gap 14 mmol/L (10-20) 03/12/20 07:09 BUN 34 mg/dL (8.4-25.7) H 03/12/20 07:09 Creatinine 1.12 mg/dL (0.7-1.3) 03/12/20 07:09 Glucose 95 mg/dL (83-110) 03/12/20 07:09 Calcium 9.3 mg/dL (7.8-10.44) 03/12/20 07:09 Phosphorus 2.5 mg/dL (2.3-4.7) 03/12/20 07:09 Magnesium 2.2 mg/dL (1.6-2.6) 03/07/20 04:32 Albumin 4.1 g/dL (3.4-4.8) 03/11/20 06:39 Nephrology AP PN - Plan ASSESSMENT Acute kidney injury: Due to hemodynamic factors related acute CHF/Cardiorenal syndrome. Resolved. Hyperkalemia: Due to potassium supplementation and acute kidney injury. Resolved Hypokalemia: due to diuretic therapy. Repleted Acute on chronic diastolic heart failure: Hyponatremia. Improved Bilateral leg edema. Due to chronic venous insufficiency and diastolic heart failure. improved with diuretics Bilateral cellulitis of both lower extremities. Hypertension: Control is acceptable PAD and atherosclerosis of the lower extremities Hypophosphatemia. repleted PLAN Continue torsemide and spironolactone. Monitor intake and output. Follow renal function and electrolytes Elevate both lower extremities Avoid nephrotoxic agents continue other treatments. Can be discharged from nephrology point of view.
[2020-03-12 13:59] VITALS: BP 113/71
--- NOTE | 2020-03-12 17:36 | PDOC.HOSPP ---
- Subjective Encounter Date: 03/12/20 Encounter Time: 08:00 Subjective: feels better, wants to get dc'd has bruising on her inner thigh area left side - Objective Vital Signs & Weight: Vital Signs (12 hours) Temp Pulse Resp BP Pulse Ox 03/12/20 13:25 85 16 113/71 94 L 03/12/20 08:00 94 L 03/12/20 07:28 85 14 94 L 03/12/20 07:27 98.6 F 87 16 120/75 95 Weight Admit Weight 255 lb 11.779 oz Weight 1.266 oz I&O: 03/11/20 03/12/20 03/13/20 06:59 06:59 06:59 Intake Total 1080 1690 Output Total 1125 1600 Balance -45 90 Result Diagrams: 03/09/20 04:04 03/12/20 07:09 - Exam General Appearance: awake alert Eye: PERRL, anicteric sclera ENT: no oropharyngeal lesions, moist mucosa Neck: supple, no JVD Heart: RRR, no murmur Respiratory: no wheezes, no rales, rhonchi Gastrointestinal: soft, non-tender, non-distended, normal bowel sounds Extremities: no cyanosis, 1+ LE edema Neurological: cranial nerve grossly intact, no focal deficits Psychiatric: A&O x 3 Hosp A/P (1) Diastolic CHF, acute Code(s): I50.31 - ACUTE DIASTOLIC (CONGESTIVE) HEART FAILURE Status: Acute (2) Acute kidney failure Status: Resolved Qualifiers: Acute renal failure type: unspecified Qualified Code(s): N17.9 - Acute kidney failure, unspecified (3) Hyponatremia Code(s): E87.1 - HYPO-OSMOLALITY AND HYPONATREMIA Status: Resolved (4) Chronic respiratory failure with hypoxia, on home O2 therapy Code(s): J96.11 - CHRONIC RESPIRATORY FAILURE WITH HYPOXIA; Z99.81 - DEPENDENCE ON SUPPLEMENTAL OXYGEN Status: Chronic (5) COPD exacerbation Code(s): J44.1 - CHRONIC OBSTRUCTIVE PULMONARY DISEASE W (ACUTE) EXACERBATION Status: Resolved (6) Cellulitis Code(s): L03.90 - CELLULITIS, UNSPECIFIED Status: Acute Qualifiers: Site of cellulitis: extremity Site of cellulitis of extremity: lower extremity Laterality: unspecified laterality Qualified Code(s): L03.119 - Cellulitis of unspecified part of limb (7) Chronic back pain Code(s): M54.9 - DORSALGIA, UNSPECIFIED; G89.29 - OTHER CHRONIC PAIN Status: Chronic Qualifiers: Back pain location: low back pain (8) Dyslipidemia Code(s): E78.5 - HYPERLIPIDEMIA, UNSPECIFIED Status: Chronic (9) HTN (hypertension) Code(s): I10 - ESSENTIAL (PRIMARY) HYPERTENSION Status: Chronic Qualifiers: Hypertension type: essential hypertension Qualified Code(s): I10 - Essential (primary) hypertension (10) Obesity (BMI 30-39.9) Code(s): E66.9 - OBESITY, UNSPECIFIED Status: Chronic - Plan is on asp, coreg, keflex, demadex, spironolactone. renal function is slowly improving along with gentle diuresis has amb around 40ft with rw and PT hemostable wound care for LE dc to swing bed he is on pramipexole qHS for restless legs needs to wear jarrod hose while upright to reduce edema in his legs
--- NOTE | 2020-03-12 17:38 | DIS ---
DATE OF ADMISSION: 03/04/2020 DATE OF DISCHARGE: 03/12/2020 DISCHARGE DISPOSITION: To [facility] in [place]. PRIMARY DISCHARGE DIAGNOSES: 1. Acute congestive heart failure exacerbation with diastolic dysfunction. 2. Acute kidney failure, resolved. 3. Hyponatremia, resolved. 4. Chronic respiratory failure, on home oxygen. 5. Initial chronic obstructive pulmonary disease exacerbation, resolved. 6. Bilateral lower extremity cellulitis with chronic venous statis, per Wound Care. 7. Chronic back pain. 8. Hypertension. 9. Dyslipidemia. 10. Obesity. PROCEDURES DONE DURING HOSPITALIZATION: Echo with 2D Doppler done showed an EF of 55% to 60%. This was a technically difficult exam. Bilateral lower extremity venous Doppler done showed no evidence of DVT. Ultrasound of kidneys showed increased echogenicity of kidneys, may be secondary to chronic medical renal disease. Left renal cyst was seen. Bilateral lower extremity arterial Doppler done showed abnormal waveforms suggestive of proximal atherosclerotic disease, possible focal stenosis of left superficial femoral artery. Blood cultures x2, no growth. H and H 12 and 35, platelet count 256, MCV 92 with white count of 8. Discharge BUN and creatinine of 34 and 1.1, serum bicarb of 30 on the day of discharge. Serum iron 53, TIBC 325, percent saturation 16, ferritin 170. Admitting BUN and creatinine were 35 and 1.96 with sodium of 124, potassium of 5.8. COVID-19 PCR was not detected on 03/04/2020. Urine creatinine was 102.15 mg/dL. DISCHARGE MEDICATIONS: 1. Aspirin 81 mg p.o. daily. 2. Gabapentin 600 mg p.o. twice daily. 3. Pramipexole 0.5 mg p.o. at bedtime. 4. Spiriva inhaler 18 mcg daily. 5. Spironolactone 25 mg p.o. daily. 6. Carvedilol 3.125 mg p.o. twice daily. 7. Torsemide 20 mg p.o. daily. 8. DuoNeb 4 times daily p.r.n. 9. Florastor 250 mg p.o. daily. 10. Keflex 500 mg p.o. three times daily for 10 days. 11. Protonix 40 mg p.o. daily. 12. Pulmicort nebulizer twice daily. 13. Senokot-S two tablets twice daily. ALLERGIES: ALLERGIC TO ULTRAM. INPATIENT CONSULT: Dr. Richey for Nephrology. DISCHARGE PLAN: Patient needs to follow up with Dr. Day Martinez in 1 week, primary care physician, Dr. Richey in 2 weeks. BRIEF COURSE DURING HOSPITALIZATION: Patient initially got admitted on the 04 of March with complaints of lower extremity swelling, redness, and pain. He also had blisters. He was essentially admitted for CHF exacerbation with diastolic dysfunction, chronic venous statis with lower extremity cellulitis with weeping ulcers. He was placed on broad-spectrum IV antibiotics. Patient had gentle diuresis with close monitoring of his renal function. He has had consultation with Dr. Richey for Nephrology. He has deconditioning and has ambulated nearly 40 feet. He lives alone in a trailer. In view of this, he is being discharged to swing bed for further recuperation prior to going home. The patient has been counseled to ambulate more and keep his leg elevated or wear SUSANA hose when he is upright. The patient seems to be noncompliant with the above two measures and has been counseled multiple times regarding the same. He will need wound care at the Swing bed facility. His medications have been optimized for now. A total of 35 minutes was spent on discharge plan. Please see a [id number] documentation for the day of discharge on [employer]. Job ID: [id number]
== END 2020-03-12 13:40 | DRG 682 ==
LOC: ERS 09:51 → 2NO 12:40 → T4-A 03-10 22:38
PROVIDERS: ADMIT Internal Medicine; ATTEND Internal Medicine
DX: N17.9 Acute kidney failure, unspecified (principal); I50.33 Acute on chronic diastolic (congestive) heart failure; L03.115 Cellulitis of right lower limb; E87.1 Hypo-osmolality and hyponatremia; J96.11 Chronic respiratory failure with hypoxia; I25.810 Atherosclerosis of coronary artery bypass graft(s) without angina pectoris; E87.3 Alkalosis; J44.1 Chronic obstructive pulmonary disease with (acute) exacerbation; L03.116 Cellulitis of left lower limb; I13.0 Hypertensive heart and chronic kidney disease with heart failure and stage 1 through stage 4 chronic kidney disease, or unspecified chronic kidney disease; E87.5 Hyperkalemia; E78.00 Pure hypercholesterolemia, unspecified; E66.9 Obesity, unspecified; G89.29 Other chronic pain; I70.209 Unspecified atherosclerosis of native arteries of extremities, unspecified extremity; M54.9 Dorsalgia, unspecified; Z95.1 Presence of aortocoronary bypass graft; Z87.891 Personal history of nicotine dependence; Z79.82 Long term (current) use of aspirin; Z79.899 Other long term (current) drug therapy; I25.2 Old myocardial infarction; Z88.8 Allergy status to other drugs, medicaments and biological substances; Z99.81 Dependence on supplemental oxygen; G25.81 Restless legs syndrome; Z98.890 Other specified postprocedural states; Z68.35 Body mass index [BMI] 35.0-35.9, adult; E87.6 Hypokalemia; E83.39 Other disorders of phosphorus metabolism; G47.00 Insomnia, unspecified; Z20.828 Contact with and (suspected) exposure to other viral communicable diseases; N18.9 Chronic kidney disease, unspecified
CPT/HCPCS: 36415; 36416; 71045; 76770; 80048; 80053; 80069; 80202; 81001; 82140; 82570; 82728; 83540; 83550; 83605; 83735; 83880; 84100; 84300; 84484; 84540; 85025; 85027; 87040; 87635; 93005; 93010; 93306; 93923; 93970; 94640; 96365; 96366; 96367; J0610; J0692; J1644; J1815; J1940; J3370; J3490; J7030; J7050; J7070; J7512; J7620; J7626; U0003

== ENCOUNTER 2021-01-06 11:21 | Inpatient (IN) | payer MEDICARE, MEDICAID ==
[2021-01-06 12:09] LABS: #Basophils 0.1 thou/uL (0.0-0.2); #Eosinphils 0.4 thou/uL (0.0-0.7); #Lymphocytes 1.2 thou/uL (1.20-3.40); #Monocytes 0.9 thou/uL (0.11-0.59); #Neutrophils 5.2 thou/uL (1.40-6.50); %Basophils 0.6 % (0.0-1.0); %Eosinophils 5.3 % (0.0-10.0); %Lymphocytes 15.8 % (21.0-51.0); %Monocytes 11.5 % (0.0-10.0); %Neutrophils 66.7 % (42.0-75.0); Hemoglobin 15.3 g/dL (14.0-18.0); Mean Corpuscular HGB CONC 32.7 g/dL (32.0-36.0); Mean Corpuscular Hemoglobin 31.3 pg (27.0-31.0); Mean Corpuscular Volume 95.8 fL (78.0-98.0); Mean Platelet Volume 8.5 fL (7.4-10.4); Platelet Count 213 thou/uL (130-400); RBC Distribution Width 15.2 % (11.5-14.5); Red Blood Cell (RBC) Count 4.89 mill/uL (4.70-6.10); White Blood Cell (WBC) Count 7.8 thou/uL (4.8-10.8)
[2021-01-06] MEDS ORDERED: Nitroglycerin 2% Ointment 1 INCH/1 GM Packet ONE (12:37)
[2021-01-06] MEDS ORDERED: Furosemide 40 MG/4 ML VIAL ONE (12:37)
[2021-01-06] MEDS ORDERED: Magnesium 2 GM/50 ML BAG (IN WATER) ONE (12:37)
[2021-01-06] MEDS ORDERED: Albuterol 200 PUFF (6.7GM INHALER) ONE (12:51)
[2021-01-06 13:41] LABS: ALT (SGPT) 17 U/L (8-55); AST (SGOT) 27 U/L (5-34); Albumin 4.2 g/dL (3.4-4.8); Alkaline Phosphatase 99 U/L (40-110); Anion Gap 13 mmol/L (10-20); BUN (Urea Nitrogen) 16 mg/dL (8.4-25.7); Bilirubin, Total 1.2 mg/dL (0.2-1.2); Calc. Creatinine Clearance 0 mL/min (70-130); Calcium 9.6 mg/dL (7.8-10.44); Carbon Dioxide 31 mmol/L (23-31); Chloride 96 mmol/L (98-107); Globulin 3.6 g/dL (2.4-3.5); Glucose 105 mg/dL (83-110); Potassium 4.7 mmol/L (3.5-5.1); Protein, Total 7.8 g/dL (5.8-8.1); Sodium 135 mmol/L (136-145)
[2021-01-06] MEDS ORDERED: Cefepime 2 GM VIAL ONE (13:47)
[2021-01-06] MEDS ORDERED: VANCOMYCIN 2 GRAM/400 ML BAG 2 GM in Premix Bag 1 BAG IVPB SCH (15:00)
[2021-01-06] MEDS ORDERED: Bisacodyl 5 MG TAB PO PRN (15:56)
[2021-01-06] MEDS ORDERED: Senokot S 8.6-50 MG TAB PO PRN (15:56)
[2021-01-06] MEDS ORDERED: cefTRIAXone\\ROCEPHIN 1 GM in Sodium Chloride 0.9% 100 ML IVPB SCH (16:00)
[2021-01-06] MEDS ORDERED: Azithromycin 500 MG in Sodium Chloride 0.9% 250 ML 250 ML IVPB SCH (17:00)
[2021-01-06 17:43] VITALS: BMI 32.8
[2021-01-06] MEDS: Azithromycin 500 MG in Sodium Chloride 0.9% 250 ML 250 ML IVPB SCH (17:47)
[2021-01-06 18:44] LABS: Legionella Urinary Ag Negative (Negative); Strep pneumo Urine Ag NEGATIVE (NEGATIVE)
[2021-01-06 19:07] LABS: SARS-CoV-2 NAA Rapid Test Not Detected (NotDetected)
[2021-01-06] MEDS: Furosemide 40 MG/4 ML VIAL SLOW IVP SCH (21:54)
[2021-01-06] MEDS ORDERED: Gabapentin 300 MG CAP PO SCH (22:15)
[2021-01-06] MEDS ORDERED: Nitroglycerin 0.4 MG TAB (25 Tab Bottle) SL PRN (22:16)
[2021-01-06 23:12] LABS: Troponin I 0.028 ng/mL (< 0.028)
[2021-01-06] MEDS ORDERED: Pramipexole Di-HCl 0.25 MG TAB PO SCH (23:59)
[2021-01-07] MEDS: Acetaminophen 325 MG TAB PO PRN (00:38)
[2021-01-07 01:58] LABS: #Eosinphils 0.4 thou/uL (0.0-0.7); #Lymphocytes 1.2 thou/uL (1.20-3.40); #Neutrophils 5.4 thou/uL (1.40-6.50); %Basophils 0.4 % (0.0-1.0); %Eosinophils 5.1 % (0.0-10.0); %Lymphocytes 15.1 % (21.0-51.0); %Monocytes 12.8 % (0.0-10.0); %Neutrophils 66.6 % (42.0-75.0); Hemoglobin 12.6 g/dL (14.0-18.0); Mean Corpuscular Hemoglobin 31.4 pg (27.0-31.0); Mean Corpuscular Volume 95.1 fL (78.0-98.0); Mean Platelet Volume 7.9 fL (7.4-10.4); Platelet Count 189 thou/uL (130-400); RBC Distribution Width 15.1 % (11.5-14.5); Red Blood Cell (RBC) Count 4.01 mill/uL (4.70-6.10); White Blood Cell (WBC) Count 8.1 thou/uL (4.8-10.8)
[2021-01-07 02:27] LABS: ALT (SGPT) 15 U/L (8-55); AST (SGOT) 23 U/L (5-34); Albumin 3.7 g/dL (3.4-4.8); Alkaline Phosphatase 83 U/L (40-110); Anion Gap 13 mmol/L (10-20); BUN (Urea Nitrogen) 21 mg/dL (8.4-25.7); Bilirubin, Total 1.1 mg/dL (0.2-1.2); Calc. Creatinine Clearance 78 mL/min (70-130); Calcium 8.9 mg/dL (7.8-10.44); Carbon Dioxide 29 mmol/L (23-31); Chloride 97 mmol/L (98-107); Globulin 2.8 g/dL (2.4-3.5); Glucose 112 mg/dL (83-110); Potassium 4.3 mmol/L (3.5-5.1); Protein, Total 6.5 g/dL (5.8-8.1); Sodium 135 mmol/L (136-145)
[2021-01-07 05:56] LABS: Troponin I 0.022 ng/mL (< 0.028)
[2021-01-07] MEDS: Enoxaparin Sodium 40 MG/0.4 ML SYRINGE SC SCH (08:22)
[2021-01-07] MEDS: predniSONE 20 MG TAB PO SCH (08:23)
[2021-01-07] MEDS: Gabapentin 300 MG CAP PO SCH ×2 (08:23→21:21)
[2021-01-07] MEDS: Furosemide 40 MG/4 ML VIAL SLOW IVP SCH ×2 (08:24→16:11)
[2021-01-07] MEDS: cefTRIAXone\\ROCEPHIN 1 GM in Sodium Chloride 0.9% 100 ML IVPB SCH (16:14)
[2021-01-07] MEDS ORDERED: Non-Formulary Item 1 EACH (Albuterol Sulfate [Proventil Hfa] 200 PUFF Inh) INH PRN (16:50)
[2021-01-07] MEDS: Azithromycin 500 MG in Sodium Chloride 0.9% 250 ML 250 ML IVPB SCH (17:34)
[2021-01-07] MEDS: Budesonide 0.5 MG/2 ML NEB NEB SCH (18:11)
[2021-01-07] MEDS ORDERED: Pramipexole Di-HCl 0.25 MG TAB PO SCH (21:00)
[2021-01-07] MEDS: Betamethasone 0.1% Cream 15 GM TUBE TOP SCH (21:20)
[2021-01-07] MEDS: Carvedilol 3.125 MG TAB PO SCH (21:21)
[2021-01-07] MEDS: Pramipexole Di-HCl 0.25 MG TAB PO SCH (21:21)
[2021-01-07] MEDS: Senokot S 8.6-50 MG TAB PO SCH (21:21)
[2021-01-08] MEDS: Acetaminophen 325 MG TAB PO PRN ×2 (03:14→22:35)
[2021-01-08] MEDS: Furosemide 40 MG/4 ML VIAL SLOW IVP SCH ×2 (05:26→14:38)
[2021-01-08 05:34] LABS: #Eosinphils 0.1 thou/uL (0.0-0.7); #Lymphocytes 1.3 thou/uL (1.20-3.40); #Monocytes 0.9 thou/uL (0.11-0.59); #Neutrophils 5.1 thou/uL (1.40-6.50); %Basophils 0.3 % (0.0-1.0); %Eosinophils 1.1 % (0.0-10.0); %Lymphocytes 17.6 % (21.0-51.0); %Monocytes 12.6 % (0.0-10.0); %Neutrophils 68.4 % (42.0-75.0); Mean Corpuscular HGB CONC 32.7 g/dL (32.0-36.0); Mean Corpuscular Hemoglobin 31.2 pg (27.0-31.0); Mean Corpuscular Volume 95.4 fL (78.0-98.0); Platelet Count 193 thou/uL (130-400); RBC Distribution Width 14.7 % (11.5-14.5); Red Blood Cell (RBC) Count 4.18 mill/uL (4.70-6.10); White Blood Cell (WBC) Count 7.4 thou/uL (4.8-10.8)
[2021-01-08 05:53] LABS: Phosphorus 2.9 mg/dL (2.3-4.7)
[2021-01-08 06:00] LABS: ALT (SGPT) 15 U/L (8-55); AST (SGOT) 21 U/L (5-34); Albumin 3.9 g/dL (3.4-4.8); Alkaline Phosphatase 81 U/L (40-110); Anion Gap 14 mmol/L (10-20); BUN (Urea Nitrogen) 25 mg/dL (8.4-25.7); Bilirubin, Total 1.1 mg/dL (0.2-1.2); Calc. Creatinine Clearance 82 mL/min (70-130); Calcium 9.4 mg/dL (7.8-10.44); Carbon Dioxide 29 mmol/L (23-31); Chloride 96 mmol/L (98-107); Globulin 2.9 g/dL (2.4-3.5); Glucose 104 mg/dL (83-110); Magnesium 2.4 mg/dL (1.6-2.6); Potassium 4.3 mmol/L (3.5-5.1); Protein, Total 6.8 g/dL (5.8-8.1); Sodium 135 mmol/L (136-145)
[2021-01-08] MEDS: Budesonide 0.5 MG/2 ML NEB NEB SCH ×2 (08:16→18:41)
[2021-01-08] MEDS: predniSONE 20 MG TAB PO SCH (08:38)
[2021-01-08] MEDS: Senokot S 8.6-50 MG TAB PO SCH ×2 (08:38→20:01)
[2021-01-08] MEDS: Carvedilol 3.125 MG TAB PO SCH ×2 (08:38→20:02)
[2021-01-08] MEDS: Aspirin 81 mg Enteric Coated Tablet PO SCH (08:38)
[2021-01-08] MEDS: Gabapentin 300 MG CAP PO SCH ×2 (08:38→20:01)
[2021-01-08] MEDS: Enoxaparin Sodium 40 MG/0.4 ML SYRINGE SC SCH (08:39)
[2021-01-08] MEDS: Betamethasone 0.1% Cream 15 GM TUBE TOP SCH ×2 (08:39→20:02)
[2021-01-08] MEDS ORDERED: Azithromycin 250 MG TAB PO SCH (18:00)
[2021-01-08] MEDS: cefTRIAXone\\ROCEPHIN 1 GM in Sodium Chloride 0.9% 100 ML IVPB SCH (18:17)
[2021-01-08] MEDS: Pramipexole Di-HCl 0.25 MG TAB PO SCH (20:02)
[2021-01-09] MEDS: Acetaminophen 325 MG TAB PO PRN (05:19)
[2021-01-09] MEDS: Furosemide 40 MG/4 ML VIAL SLOW IVP SCH (05:19)
[2021-01-09 05:43] LABS: #Eosinphils 0.1 thou/uL (0.0-0.7); #Lymphocytes 1.5 thou/uL (1.20-3.40); #Neutrophils 4.9 thou/uL (1.40-6.50); %Basophils 0.4 % (0.0-1.0); %Eosinophils 0.8 % (0.0-10.0); %Lymphocytes 20.5 % (21.0-51.0); %Monocytes 12.8 % (0.0-10.0); %Neutrophils 65.5 % (42.0-75.0); Hemoglobin 12.8 g/dL (14.0-18.0); Mean Corpuscular HGB CONC 31.3 g/dL (32.0-36.0); Mean Corpuscular Hemoglobin 30.1 pg (27.0-31.0); Mean Corpuscular Volume 96.3 fL (78.0-98.0); Mean Platelet Volume 8.2 fL (7.4-10.4); Platelet Count 201 thou/uL (130-400); RBC Distribution Width 14.8 % (11.5-14.5); Red Blood Cell (RBC) Count 4.26 mill/uL (4.70-6.10); White Blood Cell (WBC) Count 7.5 thou/uL (4.8-10.8)
[2021-01-09 06:04] LABS: ALT (SGPT) 16 U/L (8-55); AST (SGOT) 26 U/L (5-34); Albumin 3.9 g/dL (3.4-4.8); Alkaline Phosphatase 74 U/L (40-110); Anion Gap 14 mmol/L (10-20); BUN (Urea Nitrogen) 28 mg/dL (8.4-25.7); Bilirubin, Total 0.7 mg/dL (0.2-1.2); Calc. Creatinine Clearance 89 mL/min (70-130); Calcium 9.4 mg/dL (7.8-10.44); Carbon Dioxide 31 mmol/L (23-31); Chloride 98 mmol/L (98-107); Glucose 99 mg/dL (83-110); Potassium 4.1 mmol/L (3.5-5.1); Protein, Total 6.9 g/dL (5.8-8.1); Sodium 139 mmol/L (136-145)
[2021-01-09 08:44] VITALS: TEMP 97.2
[2021-01-09] MEDS: predniSONE 20 MG TAB PO SCH (08:49)
[2021-01-09] MEDS: Gabapentin 300 MG CAP PO SCH (08:49)
[2021-01-09] MEDS: Enoxaparin Sodium 40 MG/0.4 ML SYRINGE SC SCH (08:50)
[2021-01-09] MEDS: Betamethasone 0.1% Cream 15 GM TUBE TOP SCH (08:51)
[2021-01-09] MEDS: Carvedilol 3.125 MG TAB PO SCH (08:51)
[2021-01-09] MEDS: Aspirin 81 mg Enteric Coated Tablet PO SCH (08:51)
[2021-01-09] MEDS: Senokot S 8.6-50 MG TAB PO SCH (08:51)
[2021-01-09] MEDS ORDERED: Artificial Tear Sol 15 ML BOT EA EYE SCH (09:00)
[2021-01-09] MEDS: Budesonide 0.5 MG/2 ML NEB NEB SCH (10:16)
[2021-01-09 11:47] VITALS: BP 146/81
== END 2021-01-09 13:45 | disposition hospice, home (50) | DRG 291 ==
LOC: ERS 11:21 → 2NO 14:03
PROVIDERS: ADMIT Family Medicine; ATTEND Internal Medicine
DX: I11.0 Hypertensive heart disease with heart failure (principal); J96.21 Acute and chronic respiratory failure with hypoxia; Z66 Do not resuscitate; Z51.5 Encounter for palliative care; Z20.822 Contact with and (suspected) exposure to COVID-19; I50.33 Acute on chronic diastolic (congestive) heart failure; J44.1 Chronic obstructive pulmonary disease with (acute) exacerbation; E87.1 Hypo-osmolality and hyponatremia; L03.116 Cellulitis of left lower limb; L03.115 Cellulitis of right lower limb; M54.50 Low back pain, unspecified; E78.5 Hyperlipidemia, unspecified; E66.9 Obesity, unspecified; E78.00 Pure hypercholesterolemia, unspecified; I87.8 Other specified disorders of veins; G89.4 Chronic pain syndrome; I08.1 Rheumatic disorders of both mitral and tricuspid valves; I25.10 Atherosclerotic heart disease of native coronary artery without angina pectoris; Z68.32 Body mass index [BMI] 32.0-32.9, adult; I25.2 Old myocardial infarction; Z95.1 Presence of aortocoronary bypass graft; Z87.891 Personal history of nicotine dependence; Z95.5 Presence of coronary angioplasty implant and graft; Z88.6 Allergy status to analgesic agent; Z88.1 Allergy status to other antibiotic agents; Z79.899 Other long term (current) drug therapy; Z79.84 Long term (current) use of oral hypoglycemic drugs; Z80.3 Family history of malignant neoplasm of breast; Z80.6 Family history of leukemia; Z80.0 Family history of malignant neoplasm of digestive organs; Z79.82 Long term (current) use of aspirin
CPT/HCPCS: 0240U; 36415; 71045; 80053; 83735; 83880; 84100; 84145; 84484; 85025; 87040; 87070; 87205; 87449; 87899; 93005; 93010; 93306; 93970; 94640; 96365; 96367; 96375; J0456; J0692; J0696; J1650; J1940; J3370; J3475; J3490; J7050; J7512; J7620; J7626